=== PATIENT | female | born 1955 | race Caucasian/White ===

== ENCOUNTER → 2018-04-22 15:52 | Outpatient (CLI) | payer OTHER, SELFPAY ==
[2018-04-22 17:14] LABS: Add Manual Diff / Slide Review NO; Basophils Percent Auto 0.5 % (0-2); Eosinophils Percent Auto 2.9 % (2-4); Hemoglobin 14.1 g/dL (12.0-16.0); Lymphocytes Percent Auto 14.4 % (25-40); Mean Corpuscular HGB Conc 32.7 % (30-36); Mean Corpuscular Hemoglobin 27.1 PG (26-34); Mean Corpuscular Volume 82.8 fL (80-100); Monocytes Percent Auto 5.5 % (3-14); Neutrophils Absolute Auto 8400 /uL (3000-5900); Neutrophils Percent Auto 76.7 % (50-75); Platelet Count 254 X10^3/uL (150-400); Red Blood Cell Count 5.19 X10^6/uL (4.0-5.2); Red Cell Distribution Width 16.9 % (11.6-14.8)
[2018-04-22 17:21] LABS: Alanine Aminotransferase 25 IU/L (9-52); Albumin 4.4 g/dL (3.5-5.0); Albumin Globulin Ratio 1.4 (1.0-2.8); Alkaline Phosphatase 78 U/L (38-126); Aspartate Aminotransferase 20 IU/L (14-36); Bilirubin Total 0.7 mg/dL (0.2-1.3); Blood Urea Nitrogen 24 mg/dL (7-17); Calcium 9.8 mg/dL (8.4-10.2); Carbon Dioxide 29 mmol/L (22-32); Chloride 98 mmol/L (98-107); Cholesterol 158 mg/dL (140-199); Estimated Glomerular Filt Rate 56.2 mL/min (>60); Globulin 3.1 g/dL (1.7-4.1); Glucose 109 mg/dL (80-110); HDL Cholesterol 43 mg/dL (40-60); HEMOLYSIS < 15 (0-50); LDL Cholesterol Calculated 90 mg/dL (<100); Potassium 4.6 mmol/L (3.4-5.1); Sodium 141 mmol/L (137-145); Total Protein 7.5 g/dL (6.3-8.2); Triglycerides 124 mg/dL (35-150)
== END ==
PROVIDERS: PCP Family Medicine; Visit Provider Family Medicine
DX: I10 Essential (primary) hypertension (principal); M15.8 Other polyosteoarthritis
CPT/HCPCS: 36415; 80053; 80061; 84443; 85025

== ENCOUNTER → 2019-06-23 14:44 | Outpatient (CLI) | payer SELFPAY ==
[2019-06-23 15:20] LABS: Add Manual Diff / Slide Review NO; Basophils Absolute Auto 0 /uL (0-100); Basophils Percent Auto 0.5 % (0-2); Eosinophils Absolute Auto 400 /uL (0-450); Eosinophils Percent Auto 3.7 % (2-4); Hematocrit 42.6 % (36-46); Hemoglobin 13.8 g/dL (12.0-16.0); Lymphocytes Absolute Auto 2000 /uL (1100-4500); Lymphocytes Percent Auto 21.4 % (25-40); Mean Corpuscular HGB Conc 32.4 % (30-36); Mean Corpuscular Hemoglobin 26.4 PG (26-34); Mean Corpuscular Volume 81.4 fL (80-100); Monocytes Absolute Auto 500 /uL (0-900); Monocytes Percent Auto 5.4 % (3-14); Neutrophils Absolute Auto 6600 /uL (1500-7000); Platelet Count 244 X10^3/uL (150-400); Red Blood Cell Count 5.24 X10^6/uL (4.0-5.2); Red Cell Distribution Width 16.8 % (11.6-14.8); White Blood Cell Count 9.5 X10^3/uL (4.5-11.0)
[2019-06-23 15:41] LABS: Alanine Aminotransferase 26 IU/L (9-52); Albumin 4.4 g/dL (3.5-5.0); Albumin Globulin Ratio 1.3 (1.0-2.8); Alkaline Phosphatase 90 U/L (38-126); Aspartate Aminotransferase 22 IU/L (14-36); BUN Creatinine Ratio 26.3 (6-22); Bilirubin Total 0.8 mg/dL (0.2-1.3); Blood Urea Nitrogen 21 mg/dL (7-17); Calcium 9.6 mg/dL (8.4-10.2); Carbon Dioxide 33 mmol/L (22-32); Chloride 95 mmol/L (98-107); Cholesterol 132 mg/dL (140-199); Estimated Glomerular Filt Rate > 60.0 mL/min (>60); Globulin 3.3 g/dL (1.7-4.1); Glucose 100 mg/dL (80-110); HDL Cholesterol 47 mg/dL (40-60); HEMOLYSIS 25 (0-50); LDL Cholesterol Calculated 69 mg/dL (<100); Potassium 4.3 mmol/L (3.4-5.1); Sodium 140 mmol/L (137-145); Total Protein 7.7 g/dL (6.3-8.2); Triglycerides 82 mg/dL (35-150)
[2019-06-23 16:12] LABS: Thyroid Stimulating Hormone 3.87 uIU/mL (0.47-4.68)
== END ==
PROVIDERS: PCP Family Medicine; Visit Provider Family Medicine
DX: Z00.00 Encounter for general adult medical examination without abnormal findings (principal); I10 Essential (primary) hypertension; Z78.0 Asymptomatic menopausal state
CPT/HCPCS: 36415; 80053; 80061; 84443; 85025

== ENCOUNTER → 2019-07-11 15:29 | Outpatient (CLI) | payer SELFPAY ==
--- NOTE | 2019-07-11 15:30 | DI.RAD.S_ITS ---
PROCEDURE: XR ANKLE LT MIN 3V INDICATIONS: left ankle pain TECHNIQUE: 3 views of the ankle were acquired. COMPARISON: None. FINDINGS: Bones: No fractures or dislocations. Ankle mortise is normally aligned. No suspicious bony lesions. There is mild degenerative joint disease involving the tibiotalar joint, talonavicular joint and navicular cuboid joint. Calcaneal spurring. Soft tissues: No tibiotalar joint effusion. Achilles tendon appears normal. IMPRESSION: Mild degenerative joint disease and calcaneal spurring. Dictated by: Dariana Gastelum M.D. on 07/11/2019 at 18:12 Approved by: Dariana Gastelum M.D. on 07/11/2019 at 18:14
== END ==
PROVIDERS: Family Provider Family Medicine; PCP Family Medicine; Visit Provider Nurse Practitioner Family
DX: M25.572 Pain in left ankle and joints of left foot (principal); M19.072 Primary osteoarthritis, left ankle and foot; M77.32 Calcaneal spur, left foot
CPT/HCPCS: 73610

== ENCOUNTER 2020-03-27 16:32 | Inpatient (IN) | payer OTHER, MEDICAID, SELFPAY ==
[2020-03-27] VITALS (10 sets, daily range): BP systolic 194–232; BP diastolic 98–185; PULSE 72–100; RESP 18–34; TEMP 36.2–36.4; O2SAT 88–98; BMI 62.1
--- NOTE | 2020-03-27 17:19 | DI.RAD.S_ITS ---
PROCEDURE: XR CHEST 1V INDICATIONS: sob TECHNIQUE: One view of the chest was acquired. COMPARISON: [facility], , CHEST 2 VIEW, 09/13/2017, 21:39. FINDINGS: Surgical changes and devices: None. Lungs and pleura: mild pulmonary vascular congestion is seen. No focal infiltrate.No pleural effusions or pneumothorax. Mediastinum: Mediastinal contours appear normal. Heart size is Enlarged. Bones and chest wall: No suspicious bony lesions. Overlying soft tissues appear unremarkable. IMPRESSION: Cardiomegaly and mild congestion. No focal infiltrate, pleural effusion or pneumothorax. Dictated by: Ralph Avina M.D. on 03/27/2020 at 17:42 Approved by: Ralph Avina M.D. on 03/27/2020 at 17:42
[2020-03-27 17:33] LABS: Add Manual Diff / Slide Review NO; Basophils Absolute Auto 100 /uL (0-100); Basophils Percent Auto 0.7 % (0-2); Eosinophils Absolute Auto 300 /uL (0-450); Eosinophils Percent Auto 3.3 % (2-4); Hematocrit 42.3 % (36-46); Hemoglobin 13.5 g/dL (12.0-16.0); Lymphocytes Absolute Auto 1500 /uL (1100-4500); Lymphocytes Percent Auto 16.9 % (25-40); Mean Corpuscular HGB Conc 31.9 % (30-36); Mean Corpuscular Hemoglobin 25.2 PG (26-34); Mean Corpuscular Volume 79.1 fL (80-100); Monocytes Absolute Auto 600 /uL (0-900); Monocytes Percent Auto 6.7 % (3-14); Neutrophils Absolute Auto 6700 /uL (1500-7000); Neutrophils Percent Auto 72.4 % (50-75); Platelet Count 197 X10^3/uL (150-400); Red Blood Cell Count 5.35 X10^6/uL (4.0-5.2); Red Cell Distribution Width 19.5 % (11.6-14.8); White Blood Cell Count 9.2 X10^3/uL (4.5-11.0)
[2020-03-27 17:43] LABS: Creatine Kinase 32 U/L (30-135); Magnesium 1.8 mg/dL (1.6-2.3)
[2020-03-27 17:45] LABS: Alanine Aminotransferase 36 IU/L (<35); Albumin 3.9 g/dL (3.5-5.0); Albumin Globulin Ratio 1.2 (1.0-2.8); Alkaline Phosphatase 97 U/L (38-126); Aspartate Aminotransferase 31 IU/L (14-36); BUN Creatinine Ratio 23.1 (6-22); Bilirubin Total 0.7 mg/dL (0.2-1.3); Blood Urea Nitrogen 21 mg/dL (7-17); Calcium 9.1 mg/dL (8.4-10.2); Carbon Dioxide 36 mmol/L (22-32); Chloride 94 mmol/L (98-107); Estimated Glomerular Filt Rate > 60.0 mL/min (>60); Globulin 3.3 g/dL (1.7-4.1); Glucose 95 mg/dL (80-110); HEMOLYSIS < 15 (0-50); Potassium 4.1 mmol/L (3.4-5.1); Sodium 136 mmol/L (137-145); Total Protein 7.2 g/dL (6.3-8.2)
[2020-03-27 17:56] LABS: NT-proBNP (BNP-Adult 18+) 485 pg/mL (<125); Troponin I < 0.012 ng/mL (0.01-0.034)
[2020-03-27] MEDS: ALBUTEROL HFA 200 PUFF/18 GM INH (COVID POS/VENT PTS) INH (18:44)
[2020-03-27] MEDS: FUROSEMIDE 40 MG/4 ML VIAL IV (18:45)
--- NOTE | 2020-03-27 18:51 | ED_ITS ---
HPI - Extremity Problem <Francisca Thibodeaux, BUILDING TECH-BC - Last Filed: 03/27/20 20:31> General Chief complaint: Extremity Problem,Nontraumatic Stated complaint: SWELLING OF LEGS SOB Time Seen by Provider: 03/27/20 17:01 Source: patient Mode of arrival: Ambulatory Limitations: no limitations History of Present Illness HPI Narrative: The patient is a 64-year-old female nonsmoker with history of morbid obesity, asthma and pneumonia who presents with a chief complaint of swelling of her legs and progressive shortness of breath. She noticed that her legs have been swelling over the past few weeks, they use to improve at night, but they no longer are. She states that now she is short of breath when ambulating. She does have a history of asthma, states she has an occasional dry cough but no productive cough. She also has a history of pneumonia last year. She denies any chest pain nausea vomiting or diarrhea. She denies any fever. Her PCP is Marciano Morton. She denies any dysuria urgency or frequency. She denies any exposure to sick people. Related Data Home Medications Medication Instructions Recorded Confirmed ascorbic acid (vitamin C) 1,000 mg PO QDAY #0 tab 04/08/16 04/05/20 aspirin 81 mg PO QDAY #30 tab 04/08/16 04/05/20 melatonin 3 mg PO HS #0 tab 04/08/16 04/05/20 multivitamin [Multiple Vitamins] 1 tab PO QDAY #0 tab 04/08/16 04/05/20 naproxen 440 mg PO BID 03/27/20 04/05/20 Previous Rx's Medication Instructions Recorded albuterol sulfate 90 mcg/actuation 2 puff INHALATION Q4-6H PRN #8.5 05/04/18 aerosol inhaler gram pramipexole 0.5 mg tablet See Rx Instructions .ROUTE 07/03/19 .COMPLEX #120 tab trazodone 100 mg tablet See Rx Instructions .ROUTE 01/12/20 .COMPLEX #90 tablet amlodipine [Norvasc] 5 mg PO DAILY #30 tab 03/30/20 furosemide 40 mg PO DAILY #30 tab 03/30/20 potassium chloride [Klor-Con M20] 20 meq PO DAILY #30 tab 03/30/20 spironolactone 25 mg PO DAILY #30 tab 03/30/20 losartan 25 mg tablet 50 mg PO BID #120 tab 04/05/20 Allergies Allergy/AdvReac Type Severity Reaction Status Date / Time codeine [CODEINE] Allergy Intermediate GASTRIC Verified 04/05/20 14:07 UPSET Sulfa (Sulfonamide Allergy Intermediate RASH/HIVES Verified 04/05/20 14:07 Antibiotics) [SULFA (SULFONAMIDE ANTIBIOTICS)] Review of Systems <ANIYA [facility]ultz[facility] - Last Filed: 03/27/20 20:31> Review of Systems Narrative: GENERAL: Denies chills, fatigue, malaise, fever, sweats. HEENT: Denies sinus pain, ear pain, sore throat, difficulty swallowing, dizziness. RESPIRATORY: See HPI CARDIOVASCULAR: See HPI GASTROINTESTINAL: Denies nausea, vomiting, abdominal pain, diarrhea, constipation, melena. : Denies dysuria, frequency, incontinence, hematuria, urinary retention. MUSCULOSKELETAL: See HPI SKIN: Denies rash, skin lesions, or other NEUROLOGIC: Denies weakness, headache, numbness, change in speech, confusion, seizures, incoordination. PSYCHIATRIC: No concerning psychosocial issues. 12 point review of systems is negative except for those stated above Patient History <CHRISTOPHER Shultz - Last Filed: 03/27/20 20:31> Medical History (Updated 04/05/20 @ 17:53 by Marciano Morton MD) Anemia (Resolved 1993) Arthritis (Chronic 1999) Asthma (Chronic) Depression (Chronic) Foot pain (Chronic 2010) Fractures (Resolved 2010) Gout (Chronic 1998) Hayfever (Chronic) Heart murmur (Chronic 1999) Knee pain (Chronic 2009) Morbid obesity (Chronic) Obesity hypoventilation syndrome (Chronic) Ovarian cyst (Resolved 1975) RLS (restless legs syndrome) (Chronic 2012) Sleep apnea (Chronic 2011) Urinary incontinence (Chronic 2013) Surgical History Anesthesia complication (Resolved) LAP-BAND surgery status (Resolved 2012) Status post arthroscopy (Resolved 2000) Status post cholecystectomy (Resolved 1998) Status post hysterectomy (Resolved 1995) Status post right foot surgery (Resolved 2009) Family History Father Diabetes mellitus Heart disease Hypertension High cholesterol Renal failure Grandfather Heart disease Heart attack Grandmother Cancer Breast cancer Mother Diabetes mellitus Heart disease Heart failure Grandfather Heart disease Grandmother Cancer Breast cancer Colon cancer Sister Age: 57 Fibromyalgia Bone cancer Social History household members: none Smoking Status: Never smoker alcohol intake: never Smoking Status: Never smoker Substance Use Type: does not use Exam <STEPHEN Shultz - Last Filed: 03/27/20 20:31> Narrative Exam Narrative: GENERAL: Morbidly obese female in no acute distress HEAD: Atraumatic. Normocephalic. No temporal or scalp tenderness. EYES: Pupils equal round and reactive. Extraocular motions intact. No scleral icterus. No injection or drainage. ENT: Nose without bleeding, purulent drainage or septal hematoma. Throat without erythema, tonsillar hypertrophy or exudate. Uvula midline. Airway patent. NECK: Trachea midline. No JVD or lymphadenopathy. Supple, nontender, no meningeal signs. CARDIOVASCULAR: Regular rate and rhythm RESPIRATORY: Decreased to auscultation. Breath sounds equal bilaterally. Occasional dry sounding cough. Slight crackles at bases noted. 1-2 word dyspnea noted initially. Pursed lipped breathing noted initially. GASTROINTESTINAL: Abdomen obese, non-tender, nondistended. No hepato- splenomegaly, or palpable masses. No guarding. EXTREMITIES: Bilateral 3+ edema feet to the knees. Positive pedal pulses. BACK: Nontender without deformity or crepitance. No flank tenderness. NEURO: AOx3. SKIN: No rash or erythema on visible skin Initial Vital Signs Initial Vital Signs: Vital Signs Temperature 97.2 F L 03/27/20 16:41 Pulse Rate 81 03/27/20 16:41 Respiratory Rate 34 H 03/27/20 16:41 Blood Pressure 222/125 H 03/27/20 16:41 Pulse Oximetry 88 L 03/27/20 16:41 <Henry Hines MD - Last Filed: 04/10/20 07:19> Initial Vital Signs Initial Vital Signs: Vital Signs Temperature 97.2 F L 03/27/20 16:41 Pulse Rate 81 03/27/20 16:41 Respiratory Rate 34 H 03/27/20 16:41 Blood Pressure 222/125 H 03/27/20 16:41 Pulse Oximetry 88 L 03/27/20 16:41 Scores <STEPHEN Shultz - Last Filed: 03/27/20 20:31> GCS Allison coma scale eye opening: Spontaneous [place] coma scale verbal response: Orientated [place] coma scale motor response: Obey commands Allison coma scale total score: 15 Course <Francisca VillafuerteANIYA stone-BC - Last Filed: 03/27/20 20:31> Orders Ordered: Discontinued Medications Acetaminophen (Tylenol) 650 mg PO Q6HR PRN PRN Reason: Fever/Mild Pain (1-3) Last Admin: 03/29/20 03:58 Dose: 650 mg Documented by: ROSINA Joe Hydrox/Mg Hydrox/Simethicone (Maalox Plus) 30 ml PO Q6HR PRN PRN Reason: Dyspepsia Albuterol (Ventolin Hfa (Vent/Covid R/O)) 2 puff INH NOW ONE Stop: 03/27/20 16:54 Last Admin: 03/27/20 18:44 Dose: 2 puff Documented by: HALLEE Amlodipine Besylate (Norvasc) 5 mg PO DAILY [facility] Last Admin: 03/31/20 08:24 Dose: 5 mg Documented by: Admin: 03/30/20 08:18 Dose: 5 mg Documented by: Admin: 03/29/20 09:13 Dose: 5 mg Documented by: Admin: 03/28/20 18:18 Dose: 5 mg Documented by: YOUSIF Candesartan Cilexetil (Atacand) 32 mg PO DAILY [facility] Last Admin: 03/28/20 08:56 Dose: 32 mg Documented by: SIDDHARTHA Enoxaparin Sodium (Lovenox) 40 mg SUBCUT DAILY [facility] Last Admin: 03/28/20 08:56 Dose: 40 mg Documented by: SIDDHARTHA Enoxaparin Sodium (Lovenox) 40 mg SUBCUT BID [facility] Last Admin: 03/31/20 08:24 Dose: 40 mg Documented by: Admin: 03/30/20 20:25 Dose: 40 mg Documented by: Admin: 03/30/20 08:17 Dose: 40 mg Documented by: Admin: 03/29/20 21:48 Dose: 40 mg Documented by: Admin: 03/29/20 09:14 Dose: 40 mg Documented by: Admin: 03/28/20 21:42 Dose: 40 mg Documented by: JSELPH Enoxaparin Sodium (Lovenox) 40 mg SUBCUT DAILY [facility] Furosemide (Lasix) 40 mg IV NOW ONE Stop: 03/27/20 18:17 Last Admin: 03/27/20 18:45 Dose: 40 mg Documented by: ABENA Furosemide (Lasix) 40 mg IV TID [facility] Last Admin: 03/29/20 12:17 Dose: Not Given Documented by: Admin: 03/28/20 21:41 Dose: 40 mg Documented by: Admin: 03/28/20 14:11 Dose: 40 mg Documented by: Admin: 03/28/20 08:57 Dose: 40 mg Documented by: Admin: 03/27/20 21:56 Dose: 40 mg Documented by: YOUSIF Furosemide (Lasix) 40 mg PO DAILY [facility] Last Admin: 03/31/20 08:24 Dose: 40 mg Documented by: Admin: 03/30/20 08:18 Dose: 40 mg Documented by: Admin: 03/29/20 09:14 Dose: 40 mg Documented by: TASNEEM Losartan Potassium (Cozaar) 50 mg PO BID [facility] Last Admin: 03/31/20 08:24 Dose: 50 mg Documented by: Admin: 03/30/20 20:26 Dose: 50 mg Documented by: Admin: 03/30/20 08:18 Dose: 50 mg Documented by: Admin: 03/29/20 21:48 Dose: 50 mg Documented by: Admin: 03/29/20 09:13 Dose: 50 mg Documented by: Admin: 03/28/20 21:41 Dose: 50 mg Documented by: Admin: 03/28/20 14:11 Dose: 50 mg Documented by: SIDDHARTHA Magnesium Hydroxide (Milk Of Magnesia) 30 ml PO DAILY PRN PRN Reason: Constipation Magnesium Oxide (Mag Ox) 400 mg PO NOW ONE Stop: 03/27/20 19:20 Last Admin: 03/28/20 00:06 Dose: Not Given Documented by: ROSINA Melatonin (Melatonin) 3 mg PO BEDTIME [facility] Last Admin: 03/30/20 20:26 Dose: 3 mg Documented by: Admin: 03/29/20 21:49 Dose: 3 mg Documented by: Admin: 03/28/20 21:41 Dose: 3 mg Documented by: Admin: 03/27/20 21:57 Dose: 3 mg Documented by: YOUSIF Naloxone HCl (Narcan) 0.2 mg IV Q2MIN PRN PRN Reason: Opiate Reversal Stored In Pharmacy 1 each PO PRN PRN PRN Reason: PROTOCOL Nystatin (Nystop) 1 applic TOP TID [facility] Last Admin: 03/31/20 08:24 Dose: 1 applic Documented by: Admin: 03/30/20 20:28 Dose: 1 applic Documented by: Admin: 03/30/20 14:40 Dose: 1 applic Documented by: Admin: 03/30/20 11:45 Dose: 1 applic Documented by: Admin: 03/29/20 21:50 Dose: 1 applic Documented by: Admin: 03/29/20 15:14 Dose: Not Given Documented by: Admin: 03/29/20 09:14 Dose: 1 applic Documented by: Admin: 03/28/20 21:45 Dose: 1 applic Documented by: Admin: 03/28/20 14:21 Dose: 1 applic Documented by: Admin: 03/28/20 08:57 Dose: 1 applic Documented by: SIDDHARTHA Ondansetron HCl (Zofran) 4 mg IV Q8HR PRN PRN Reason: Nausea And Vomiting Potassium Chloride (Klor-Con M20) 20 meq PO TIDWM [facility] Last Admin: 03/30/20 08:18 Dose: 20 meq Documented by: Admin: 03/29/20 17:13 Dose: 20 meq Documented by: Admin: 03/29/20 13:27 Dose: 20 meq Documented by: Admin: 03/29/20 09:13 Dose: 20 meq Documented by: Admin: 03/28/20 17:39 Dose: 20 meq Documented by: Admin: 03/28/20 12:43 Dose: 20 meq Documented by: Admin: 03/28/20 08:57 Dose: 20 meq Documented by: SIDDHARTHA Potassium Chloride (Klor-Con M20) 20 meq PO DAILY [facility] Last Admin: 03/31/20 08:24 Dose: 20 meq Documented by: FUENTES Pramipexole Dihydrochloride (Mirapex) 1 mg PO BEDTIME PRN PRN Reason: sleep Pramipexole Dihydrochloride (Mirapex) 1 mg PO BEDTIME PRN PRN Reason: Sleep Last Admin: 03/30/20 20:26 Dose: 1 mg Documented by: Admin: 03/29/20 21:50 Dose: 1 mg Documented by: Admin: 03/28/20 21:47 Dose: 1 mg Documented by: YOUSIF Sodium Chloride (Normal Saline 0.9% Flush) 10 ml IV PRN PRN PRN Reason: Flush Sodium Chloride (Normal Saline 0.9% Flush) 10 ml IV BID [facility] Admin: 03/31/20 08:25 Dose: 10 ml Documented by: Admin: 03/30/20 20:28 Dose: 10 ml Documented by: Admin: 03/30/20 08:21 Dose: 10 ml Documented by: JEFF Spironolactone (Aldactone) 25 mg PO DAILY [facility] Admin: 03/31/20 08:24 Dose: 25 mg Documented by: Admin: 03/30/20 08:14 Dose: 25 mg Documented by: Admin: 03/29/20 09:13 Dose: 25 mg Documented by: Admin: 03/28/20 08:56 Dose: 25 mg Documented by: SIDDHARTHA Trazodone HCl (Desyrel) 100 mg PO BEDTIME PRN PRN Reason: see Last Admin: 03/29/20 21:49 Dose: 100 mg Documented by: Admin: 03/28/20 21:45 Dose: 100 mg Documented by: Admin: 03/27/20 21:57 Dose: 100 mg Documented by: YOUSIF Vital Signs Vital signs: Vital Signs - 8 hr 03/27/20 16:41 03/27/20 17:00 03/27/20 17:30 Temperature 97.2 F L Pulse Rate 81 74 77 Respiratory Rate 34 H 33 H 18 Blood Pressure 222/125 H Pulse Oximetry 88 L 94 95 03/27/20 18:00 03/27/20 18:30 03/27/20 19:00 Temperature Pulse Rate 77 74 94 H Respiratory Rate 28 H 29 H 34 H Blood Pressure 232/110 H 201/98 H 220/99 H Pulse Oximetry 97 97 98 03/27/20 19:30 Temperature Pulse Rate 100 H Respiratory Rate 34 H Blood Pressure 228/185 H Pulse Oximetry 98 <Henry Hines MD - Last Filed: 04/10/20 07:19> Orders Ordered: Discontinued Medications Acetaminophen (Tylenol) 650 mg PO Q6HR PRN PRN Reason: Fever/Mild Pain (1-3) Last Admin: 03/29/20 03:58 Dose: 650 mg Documented by: ROSINA Joe Hydrox/Mg Hydrox/Simethicone (Maalox Plus) 30 ml PO Q6HR PRN PRN Reason: Dyspepsia Albuterol (Ventolin Hfa (Vent/Covid R/O)) 2 puff INH NOW ONE Stop: 03/27/20 16:54 Last Admin: 03/27/20 18:44 Dose: 2 puff Documented by: HALLEE Amlodipine Besylate (Norvasc) 5 mg PO DAILY [facility] Last Admin: 03/31/20 08:24 Dose: 5 mg Documented by: Admin: 03/30/20 08:18 Dose: 5 mg Documented by: Admin: 03/29/20 09:13 Dose: 5 mg Documented by: Admin: 03/28/20 18:18 Dose: 5 mg Documented by: YOUSIF Candesartan Cilexetil (Atacand) 32 mg PO DAILY [facility] Last Admin: 03/28/20 08:56 Dose: 32 mg Documented by: SIDDHARTHA Enoxaparin Sodium (Lovenox) 40 mg SUBCUT DAILY [facility] Last Admin: 03/28/20 08:56 Dose: 40 mg Documented by: SIDDHARTHA Enoxaparin Sodium (Lovenox) 40 mg SUBCUT BID [facility] Last Admin: 03/31/20 08:24 Dose: 40 mg Documented by: Admin: 03/30/20 20:25 Dose: 40 mg Documented by: Admin: 03/30/20 08:17 Dose: 40 mg Documented by: Admin: 03/29/20 21:48 Dose: 40 mg Documented by: Admin: 03/29/20 09:14 Dose: 40 mg Documented by: Admin: 03/28/20 21:42 Dose: 40 mg Documented by: YOUSIF Enoxaparin Sodium (Lovenox) 40 mg SUBCUT DAILY [facility] Furosemide (Lasix) 40 mg IV NOW ONE Stop: 03/27/20 18:17 Last Admin: 03/27/20 18:45 Dose: 40 mg Documented by: ABENA Furosemide (Lasix) 40 mg IV TID [facility] Last Admin: 03/29/20 12:17 Dose: Not Given Documented by: Admin: 03/28/20 21:41 Dose: 40 mg Documented by: Admin: 03/28/20 14:11 Dose: 40 mg Documented by: Admin: 03/28/20 08:57 Dose: 40 mg Documented by: Admin: 03/27/20 21:56 Dose: 40 mg Documented by: YOUSIF Furosemide (Lasix) 40 mg PO DAILY [facility] Last Admin: 03/31/20 08:24 Dose: 40 mg Documented by: Admin: 03/30/20 08:18 Dose: 40 mg Documented by: Admin: 03/29/20 09:14 Dose: 40 mg Documented by: TASNEEM Losartan Potassium (Cozaar) 50 mg PO BID [facility] Last Admin: 03/31/20 08:24 Dose: 50 mg Documented by: Admin: 03/30/20 20:26 Dose: 50 mg Documented by: Admin: 03/30/20 08:18 Dose: 50 mg Documented by: Admin: 03/29/20 21:48 Dose: 50 mg Documented by: Admin: 03/29/20 09:13 Dose: 50 mg Documented by: Admin: 03/28/20 21:41 Dose: 50 mg Documented by: Admin: 03/28/20 14:11 Dose: 50 mg Documented by: SIDDHARTHA Magnesium Hydroxide (Milk Of Magnesia) 30 ml PO DAILY PRN PRN Reason: Constipation Magnesium Oxide (Mag Ox) 400 mg PO NOW ONE Stop: 03/27/20 19:20 Last Admin: 03/28/20 00:06 Dose: Not Given Documented by: ROSINA Melatonin (Melatonin) 3 mg PO BEDTIME [facility] Last Admin: 03/30/20 20:26 Dose: 3 mg Documented by: Admin: 03/29/20 21:49 Dose: 3 mg Documented by: Admin: 03/28/20 21:41 Dose: 3 mg Documented by: Admin: 03/27/20 21:57 Dose: 3 mg Documented by: YOUSIF Naloxone HCl (Narcan) 0.2 mg IV Q2MIN PRN PRN Reason: Opiate Reversal Stored In Pharmacy 1 each PO PRN PRN PRN Reason: PROTOCOL Nystatin (Nystop) 1 applic TOP TID [facility] Admin: 03/31/20 08:24 Dose: 1 applic Documented by: Admin: 03/30/20 20:28 Dose: 1 applic Documented by: Admin: 03/30/20 14:40 Dose: 1 applic Documented by: Admin: 03/30/20 11:45 Dose: 1 applic Documented by: Admin: 03/29/20 21:50 Dose: 1 applic Documented by: Admin: 03/29/20 15:14 Dose: Not Given Documented by: Admin: 03/29/20 09:14 Dose: 1 applic Documented by: Admin: 03/28/20 21:45 Dose: 1 applic Documented by: Admin: 03/28/20 14:21 Dose: 1 applic Documented by: Admin: 03/28/20 08:57 Dose: 1 applic Documented by: SIDDHARTHA Ondansetron HCl (Zofran) 4 mg IV Q8HR PRN PRN Reason: Nausea And Vomiting Potassium Chloride (Klor-Con M20) 20 meq PO TIDWM [facility] Last Admin: 03/30/20 08:18 Dose: 20 meq Documented by: Admin: 03/29/20 17:13 Dose: 20 meq Documented by: Admin: 03/29/20 13:27 Dose: 20 meq Documented by: Admin: 03/29/20 09:13 Dose: 20 meq Documented by: Admin: 03/28/20 17:39 Dose: 20 meq Documented by: Admin: 03/28/20 12:43 Dose: 20 meq Documented by: Admin: 03/28/20 08:57 Dose: 20 meq Documented by: JNEWTON Potassium Chloride (Klor-Con M20) 20 meq PO DAILY [facility] Last Admin: 03/31/20 08:24 Dose: 20 meq Documented by: FUENTES Pramipexole Dihydrochloride (Mirapex) 1 mg PO BEDTIME PRN PRN Reason: sleep Pramipexole Dihydrochloride (Mirapex) 1 mg PO BEDTIME PRN PRN Reason: Sleep Last Admin: 03/30/20 20:26 Dose: 1 mg Documented by: Admin: 03/29/20 21:50 Dose: 1 mg Documented by: Admin: 03/28/20 21:47 Dose: 1 mg Documented by: YOUSIF Sodium Chloride (Normal Saline 0.9% Flush) 10 ml IV PRN PRN PRN Reason: Flush Sodium Chloride (Normal Saline 0.9% Flush) 10 ml IV BID [facility] Admin: 03/31/20 08:25 Dose: 10 ml Documented by: Admin: 03/30/20 20:28 Dose: 10 ml Documented by: Admin: 03/30/20 08:21 Dose: 10 ml Documented by: JEFF Spironolactone (Aldactone) 25 mg PO DAILY [facility] Admin: 03/31/20 08:24 Dose: 25 mg Documented by: Admin: 03/30/20 08:14 Dose: 25 mg Documented by: Admin: 03/29/20 09:13 Dose: 25 mg Documented by: Admin: 03/28/20 08:56 Dose: 25 mg Documented by: SIDDHARTHA Trazodone HCl (Desyrel) 100 mg PO BEDTIME PRN PRN Reason: seep Last Admin: 03/29/20 21:49 Dose: 100 mg Documented by: Admin: 03/28/20 21:45 Dose: 100 mg Documented by: Admin: 03/27/20 21:57 Dose: 100 mg Documented by: YOUSIF Vital Signs Vital signs: Vital Signs - 8 hr 03/27/20 16:41 03/27/20 17:00 03/27/20 17:30 Temperature 97.2 F L Pulse Rate 81 74 77 Respiratory Rate 34 H 33 H 18 Blood Pressure 222/125 H Pulse Oximetry 88 L 94 95 03/27/20 18:00 03/27/20 18:30 03/27/20 19:00 Temperature Pulse Rate 77 74 94 H Respiratory Rate 28 H 29 H 34 H Blood Pressure 232/110 H 201/98 H 220/99 H Pulse Oximetry 97 97 98 03/27/20 19:30 Temperature Pulse Rate 100 H Respiratory Rate 34 H Blood Pressure 228/185 H Pulse Oximetry 98 MDM - Extremity (Nontraumatic) <Francisca Thibodeaux, BUILDING TECH-BC - Last Filed: 03/27/20 20:31> Lab Data Result diagrams: 03/28/20 04:44 03/30/20 04:50 Labs: Lab Results 03/27/20 03/27/20 03/27/20 Range/Units 17:14 17:14 17:14 WBC 9.2 (4.5-11.0) X10^3/uL RBC 5.35 H (4.0-5.2) X10^6/uL Hgb 13.5 (12.0-16.0) g/dL Hct 42.3 (36-46) % MCV 79.1 L (80-100) fL MCH 25.2 L (26-34) PG MCHC 31.9 (30-36) % RDW 19.5 H (11.6-14.8) % Plt Count 197 (150-400) X10^3/uL Neut % (Auto) 72.4 (50-75) % Lymph % (Auto) 16.9 L (25-40) % [place] % (Auto) 6.7 (3-14) % Eos % (Auto) 3.3 (2-4) % Baso % (Auto) 0.7 (0-2) % Neut # (Auto) 6700 (5374-1990) /uL Lymph # (Auto) 1500 (4340-3307) /uL Valencia # (Auto) 600 (0-900) /uL Eos # (Auto) 300 (0-450) /uL Baso # (Auto) 100 (0-100) /uL Sodium 136 L (137-145) mmol/L Potassium 4.1 (3.4-5.1) mmol/L Chloride 94 L (98-107) mmol/L Carbon Dioxide 36 H (22-32) mmol/L BUN 21 H (7-17) mg/dL Creatinine 0.91 (0.52-1.04) mg/dL Estimated GFR > 60.0 (>60) mL/min BUN/Creatinine Ratio 23.1 H (6-22) Glucose 95 (80-110) mg/dL Lactate 1.0 (0.7-2.1) mmol/L Calcium 9.1 (8.4-10.2) mg/dL Magnesium (1.6-2.3) mg/dL Total Bilirubin 0.7 (0.2-1.3) mg/dL AST 31 (14-36) IU/L ALT 36 H (<35) IU/L Alkaline Phosphatase 97 (38-126) U/L Total Creatine Kinase (30-135) U/L CK-MB (CK-2) CK-MB (CK-2) Rel Index Troponin I (0.01-0.034) ng/mL NT-Pro-B Natriuret Pep (<125) pg/mL Total Protein 7.2 (6.3-8.2) g/dL Albumin 3.9 (3.5-5.0) g/dL Globulin 3.3 (1.7-4.1) g/dL Albumin/Globulin Ratio 1.2 (1.0-2.8) COVID-19 PCR (Negative) 03/27/20 03/27/20 Range/Units 17:14 17:42 WBC (4.5-11.0) X10^3/uL RBC (4.0-5.2) X10^6/uL Hgb (12.0-16.0) g/dL Hct (36-46) % MCV (80-100) fL MCH (26-34) PG MCHC (30-36) % RDW (11.6-14.8) % Plt Count (150-400) X10^3/uL Neut % (Auto) (50-75) % Lymph % (Auto) (25-40) % Valencia % (Auto) (3-14) % Eos % (Auto) (2-4) % Baso % (Auto) (0-2) % Neut # (Auto) (9291-0479) /uL Lymph # (Auto) (3766-3521) /uL Valencia # (Auto) (0-900) /uL Eos # (Auto) (0-450) /uL Baso # (Auto) (0-100) /uL Sodium (137-145) mmol/L Potassium (3.4-5.1) mmol/L Chloride (98-107) mmol/L Carbon Dioxide (22-32) mmol/L BUN (7-17) mg/dL Creatinine (0.52-1.04) mg/dL Estimated GFR (>60) mL/min BUN/Creatinine Ratio (6-22) Glucose (80-110) mg/dL Lactate (0.7-2.1) mmol/L Calcium (8.4-10.2) mg/dL Magnesium 1.8 (1.6-2.3) mg/dL Total Bilirubin (0.2-1.3) mg/dL AST (14-36) IU/L ALT (<35) IU/L Alkaline Phosphatase (38-126) U/L Total Creatine Kinase 32 (30-135) U/L CK-MB (CK-2) TNP CK-MB (CK-2) Rel Index TNP Troponin I < 0.012 (0.01-0.034) ng/mL NT-Pro-B Natriuret Pep 485 H (<125) pg/mL Total Protein (6.3-8.2) g/dL Albumin (3.5-5.0) g/dL Globulin (1.7-4.1) g/dL Albumin/Globulin Ratio (1.0-2.8) COVID-19 PCR Negative (Negative) Imaging Data Chest x-ray: Radiologist's Impression: [address] [place] [id number] XRay Report Signed Patient: Shyanne Zapata R#: [id number] : 6Acct:[id number] Age/Sex: 64 / FDate of Service: 03/27/20 Loc: ED Accession Number: [id number] Procedure: XR chest 1V Ordering Provider: Francisca Thibodeaux PROCEDURE: XR CHEST 1V INDICATIONS: sob TECHNIQUE: One view of the chest was acquired. COMPARISON: [facility], CHEST 2 VIEW, 09/13/2017, 21:39. FINDINGS: Surgical changes and devices: None. Lungs and pleura: mild pulmonary vascular congestion is seen. No focal infiltrate.No pleural effusions or pneumothorax. Mediastinum: Mediastinal contours appear normal. Heart size is Enlarged. Bones and chest wall: No suspicious bony lesions. Overlying soft tissues appear unremarkable. IMPRESSION: Cardiomegaly and mild congestion. No focal infiltrate, pleural effusion or pneumothorax. Dictated by: Ralph Avina M.D. on 03/27/2020 at 17:42 Approved by: Ralph Avina M.D. on 03/27/2020 at 17:42 ECG Data Attestation EKG: I personally reviewed and interpreted this ECG as follows: Interpretation: Sinus rhythm. Ventricular rate 81. P.r. interval 173. QRS 91. viewed by Dr Hines MDM Narrative Medical decision making narrative: The patient is a 64-year-old female who presents with a chief complaint of bilateral pedal edema that is getting worse as well as progressive shortness of breath. Initially she has 87-88% on room air upon ambulation into the department. She has pursed lip breathing, has 1-2 word dyspnea until she is placed on oxygen. Then her oxygen level recovers. Her troponin is negative. Her EKG has no acute findings. The patient is clinically fluid overloaded, with 3+ edema in crackles in her bases. Her x-ray shows pulmonary congestion as well as cardiomegaly. The patient appears to be very fluid overloaded, and believe that she needs to be admitted for diuresis an d further monitoring as well as echocardiogram. She also needs to be admitted regarding her increased oxygen requirements. She was given 40 mg IV Lasix in the emergency department, felt as though that helped her breathing. Blood pressure did decrease after Lasix dosing. I spoke with Dr. Rausch who kindly admitted the patient to inpatient status. Patient is in accordance, would like to be admitted at this point as she states ?I cannot live like this. <Henry Hines MD - Last Filed: 04/10/20 07:19> Lab Data Labs: Lab Results 03/27/20 03/27/20 03/27/20 Range/Units 17:14 17:14 17:14 WBC 9.2 (4.5-11.0) X10^3/uL RBC 5.35 H (4.0-5.2) X10^6/uL Hgb 13.5 (12.0-16.0) g/dL Hct 42.3 (36-46) % MCV 79.1 L (80-100) fL MCH 25.2 L (26-34) PG MCHC 31.9 (30-36) % RDW 19.5 H (11.6-14.8) % Plt Count 197 (150-400) X10^3/uL Neut % (Auto) 72.4 (50-75) % Lymph % (Auto) 16.9 L (25-40) % Valencia % (Auto) 6.7 (3-14) % Eos % (Auto) 3.3 (2-4) % Baso % (Auto) 0.7 (0-2) % Neut # (Auto) 6700 (5020-9720) /uL Lymph # (Auto) 1500 (1750-0274) /uL Valencia # (Auto) 600 (0-900) /uL Eos # (Auto) 300 (0-450) /uL Baso # (Auto) 100 (0-100) /uL Sodium 136 L (137-145) mmol/L Potassium 4.1 (3.4-5.1) mmol/L Chloride 94 L (98-107) mmol/L Carbon Dioxide 36 H (22-32) mmol/L BUN 21 H (7-17) mg/dL Creatinine 0.91 (0.52-1.04) mg/dL Estimated GFR > 60.0 (>60) mL/min BUN/Creatinine Ratio 23.1 H (6-22) Glucose 95 (80-110) mg/dL Lactate 1.0 (0.7-2.1) mmol/L Calcium 9.1 (8.4-10.2) mg/dL Magnesium (1.6-2.3) mg/dL Total Bilirubin 0.7 (0.2-1.3) mg/dL AST 31 (14-36) IU/L ALT 36 H (<35) IU/L Alkaline Phosphatase 97 (38-126) U/L Total Creatine Kinase (30-135) U/L CK-MB (CK-2) CK-MB (CK-2) Rel Index Troponin I (0.01-0.034) ng/mL NT-Pro-B Natriuret Pep (<125) pg/mL Total Protein 7.2 (6.3-8.2) g/dL Albumin 3.9 (3.5-5.0) g/dL Globulin 3.3 (1.7-4.1) g/dL Albumin/Globulin Ratio 1.2 (1.0-2.8) COVID-19 PCR (Negative) 03/27/20 03/27/20 Range/Units 17:14 17:42 WBC (4.5-11.0) X10^3/uL RBC (4.0-5.2) X10^6/uL Hgb (12.0-16.0) g/dL Hct (36-46) % MCV (80-100) fL MCH (26-34) PG MCHC (30-36) % RDW (11.6-14.8) % Plt Count (150-400) X10^3/uL Neut % (Auto) (50-75) % Lymph % (Auto) (25-40) % Valencia % (Auto) (3-14) % Eos % (Auto) (2-4) % Baso % (Auto) (0-2) % Neut # (Auto) (7534-0735) /uL Lymph # (Auto) (1191-9248) /uL Valencia # (Auto) (0-900) /uL Eos # (Auto) (0-450) /uL Baso # (Auto) (0-100) /uL Sodium (137-145) mmol/L Potassium (3.4-5.1) mmol/L Chloride (98-107) mmol/L Carbon Dioxide (22-32) mmol/L BUN (7-17) mg/dL Creatinine (0.52-1.04) mg/dL Estimated GFR (>60) mL/min BUN/Creatinine Ratio (6-22) Glucose (80-110) mg/dL Lactate (0.7-2.1) mmol/L Calcium (8.4-10.2) mg/dL Magnesium 1.8 (1.6-2.3) mg/dL Total Bilirubin (0.2-1.3) mg/dL AST (14-36) IU/L ALT (<35) IU/L Alkaline Phosphatase (38-126) U/L Total Creatine Kinase 32 (30-135) U/L CK-MB (CK-2) TNP CK-MB (CK-2) Rel Index TNP Troponin I < 0.012 (0.01-0.034) ng/mL NT-Pro-B Natriuret Pep 485 H (<125) pg/mL Total Protein (6.3-8.2) g/dL Albumin (3.5-5.0) g/dL Globulin (1.7-4.1) g/dL Albumin/Globulin Ratio (1.0-2.8) COVID-19 PCR Negative (Negative) Discharge Plan Departure Patient Disposition: Admitted As Inpatient Clinical Impression: Breath shortness, Elevated brain natriuretic peptide (BNP) level Edema Qualifiers: Edema type: unspecified Qualified Code(s): R60.9 - Edema, unspecified Discharge Date/Time: 03/27/20 20:30 Instructions: DI for Heart Failure, Spironolactone, Furosemide, Amlodipine Referrals: Marciano Morton MD [Primary Care Provider] - 1 Week (Patient to call on WednesdayApril 01 for appointment in approximately 1 week) Admit Date/Time: 03/27/20 19:32 Admit Provider: Shahriar Rausch <Henry Hines MD - Last Filed: 04/10/20 07:19> Cosign ED Attending Cosignature Attestation: I was immediately available in the department for consultation. This documentation has been reviewed and I agree with assessment and plan. Supervised by Henry Hines MD
[2020-03-27 20:28] LABS: COVID19 -Nasal RAPID Negative (Negative)
[2020-03-27] MEDS: FUROSEMIDE 20 MG/2 ML VIAL 40 MG IV (21:56)
[2020-03-27] MEDS: TRAZODONE 100 MG TABLET PO (21:57)
[2020-03-27] MEDS: MELATONIN 3 MG TABLET PO (21:57)
--- NOTE | 2020-03-27 22:03 | PC.NURSE ---
5 - Pt arrive to room 229. Oriented to room and routine. Able to transfer self to [facility]. Denies Hx of falls. Home meds with patient and reviewed. Sent to pharmacy. Educated to safety and call light use. Call light in reach. Snack provided.
[2020-03-28] VITALS (12 sets, daily range): BP systolic 131–199; BP diastolic 69–96; PULSE 70–84; RESP 18–22; TEMP 36.1–36.8; O2SAT 90–95
--- NOTE | 2020-03-28 02:02 | RT ---
03/27/2255 Patient seen for evaluate and treat (before as well in ER at 1924). VSS P 72/ RR 20 without obvious effort with HOB up/ BS diminished with fine rales in posterior bases. CXR results: mild pulmonary congestion with cardiomegaly. Patient notes non-contributory respiratory history but states she was previously diagnosed with LUKE but insurance wouldn't pay for machine. She notes that she would not like our available CPAP masks at this time. Patient also notes that she routinely takes hydrochlorothiazide diuretic but has been having worsening BLE edema lately. she is receiving Lasix at present. Plan: Will follow patient as she continues diuresing, continuous oximetry in use for oxygen needs and to keep track of her nocturnal oxygen needs. and 2LPM oxygen. Suggest followup after discharge for full sleep study and possible prescription for CPAP/BiPAP. Flores Hinojosa, COPY TECHNICIAN
[2020-03-28 05:08] LABS: Add Manual Diff / Slide Review NO; Basophils Absolute Auto 100 /uL (0-100); Basophils Percent Auto 0.8 % (0-2); Eosinophils Absolute Auto 400 /uL (0-450); Eosinophils Percent Auto 5.1 % (2-4); Hemoglobin 13.2 g/dL (12.0-16.0); Lymphocytes Absolute Auto 1200 /uL (1100-4500); Lymphocytes Percent Auto 15.1 % (25-40); Mean Corpuscular HGB Conc 32.2 % (30-36); Mean Corpuscular Hemoglobin 25.6 PG (26-34); Mean Corpuscular Volume 79.4 fL (80-100); Monocytes Absolute Auto 600 /uL (0-900); Monocytes Percent Auto 7.2 % (3-14); Neutrophils Absolute Auto 5700 /uL (1500-7000); Neutrophils Percent Auto 71.8 % (50-75); Platelet Count 183 X10^3/uL (150-400); Red Blood Cell Count 5.16 X10^6/uL (4.0-5.2); Red Cell Distribution Width 19.2 % (11.6-14.8); White Blood Cell Count 7.9 X10^3/uL (4.5-11.0)
[2020-03-28 05:21] LABS: BUN Creatinine Ratio 22.5 (6-22); Blood Urea Nitrogen 20 mg/dL (7-17); Calcium 8.6 mg/dL (8.4-10.2); Chloride 94 mmol/L (98-107); Estimated Glomerular Filt Rate > 60.0 mL/min (>60); Glucose 113 mg/dL (80-110); HEMOLYSIS < 15 (0-50); Magnesium 1.8 mg/dL (1.6-2.3); Sodium 138 mmol/L (137-145)
[2020-03-28 05:47] LABS: Carbon Dioxide 40 mmol/L (22-32)
[2020-03-28 06:03] LABS: Thyroid Stimulating Hormone 5.46 uIU/mL (0.47-4.68)
--- NOTE | 2020-03-28 06:37 | PC.NURSE ---
Notified provider of high CO2 results. No new orders received. Removed O2 and pt 02 sats dropped to 87%. Restarted on o2 at 2L and sats back up to 92%. Pt alert and oriented x 4. Pt reports shortness has decreased, only feeling SOB breath getting OOB. Pt denies any pain. Voiding to bedside commode without issues. SBA. No complaints at this tiem
--- NOTE | 2020-03-28 08:39 | P.HP_ITS ---
History of Present Illness History of Present Illness Date Patient Seen: 03/28/20 Time Patient Seen: 08:40 Date of Onset of Symptoms: 12/13/19 Chief complaint: SWELLING OF LEGS SOB Narrative: 64-year-old female admitted for evaluation of a lower extremity edema and shortness of breath. She has been having shortness of breath gradually over the last several weeks unclear exactly when this started with perhaps a couple months ago. This is gradually gotten worse over time. 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 Recently over the last couple weeks she has noticed the swelling does not resolve when the swelling in her legs is worse than his ever been. She has also noticed that her skin is very sensitive even when a CT walks on her skin. She has had no chest pain no shortness of breath otherwise the mention. She has had no palpitations no dizziness no nausea no fever no chills no mucus production minimal cough nonproductive per No prior history of cardiac disease. She does have history sleep apnea. Does not use CPAP machine his insurance would not pay for it. Apparently has some history of some reactive airway disease unclear exactly history of that. Patient was given intravenous Lasix in the emergency room last evening and her shortness of breath sound improved significantly and she feels like her edema has pretty much resolved back to her usual. She has a history of hypertension being treated. Additionally restless leg period and sleep disorder Patient History Medical History Anemia (Resolved 1993) Arthritis (Chronic 1999) Asthma (Chronic) Chicken pox (Resolved) Depression (Chronic) Foot pain (Chronic 2010) Fractures (Resolved 2010) Gout (Chronic 1998) Hayfever (Chronic) Heart murmur (Chronic 1999) Knee pain (Chronic 2009) Measles (Resolved) Mumps (Resolved) Ovarian cyst (Resolved 1975) RLS (restless legs syndrome) (Chronic 2012) Sleep apnea (Chronic 2011) Urinary incontinence (Chronic 2013) Surgical History Anesthesia complication (Resolved) LAP-BAND surgery status (Resolved 2012) Status post arthroscopy (Resolved 2000) Status post cholecystectomy (Resolved 1998) Status post hysterectomy (Resolved 1995) Status post right foot surgery (Resolved 2009) Family & Social History Family History Father Diabetes mellitus Heart disease Hypertension High cholesterol Renal failure Grandfather Heart disease Heart attack Grandmother Cancer Breast cancer Mother Diabetes mellitus Heart disease Heart failure Grandfather Heart disease Grandmother Cancer Breast cancer Colon cancer Sister Age: 57 Fibromyalgia Bone cancer Social History: household members none Prior Living Arrangements RV Safety & Behavioral: Feels Safe in Current Yes Environment Been Physically Hurt or No Threatened By a Person Suicidal Ideation Description None Tobacco & Substance use: Smoking Status Never smoker alcohol intake never Substance Use Type does not use Meds Home Medications and Allergies Home Medications Medication Instructions Recorded Confirmed Type ascorbic acid (vitamin C) 1,000 mg PO QDAY #0 tab 04/08/16 03/27/20 History aspirin 81 mg PO QDAY #30 tab 04/08/16 03/27/20 History melatonin 3 mg PO HS #0 tab 04/08/16 03/27/20 History multivitamin [Multiple Vitamins] 1 tab PO QDAY #0 tab 04/08/16 03/27/20 History albuterol sulfate 90 mcg/actuation 2 puff INHALATION Q4-6H PRN #8.5 05/04/18 03/27/20 Rx aerosol inhaler gram pramipexole 0.5 mg tablet See Rx Instructions .ROUTE 07/03/19 03/27/20 Rx .COMPLEX #120 tab candesartan 32 mg tablet See Rx Instructions .ROUTE 08/24/19 03/27/20 Rx .COMPLEX #90 tablet hydrochlorothiazide 25 mg tablet See Rx Instructions .ROUTE 11/22/19 03/27/20 Rx .COMPLEX #90 tablet trazodone 100 mg tablet See Rx Instructions .ROUTE 01/12/20 03/27/20 Rx .COMPLEX #90 tablet albuterol sulfate [ProAir HFA] 2 puff INHALATION QID PRN 03/27/20 03/27/20 History naproxen 440 mg PO BID 03/27/20 03/27/20 History Allergies Allergy/AdvReac Type Severity Reaction Status Date / Time codeine [CODEINE] Allergy Intermediate GASTRIC Verified 03/27/20 16:46 UPSET Sulfa (Sulfonamide Allergy Intermediate RASH/HIVES Verified 03/27/20 16:46 Antibiotics) [SULFA (SULFONAMIDE ANTIBIOTICS)] Review of Systems Review of Systems ROS: Yes All systems reviewed with the patient and are negative except as otherwise documented Exam Vital Signs (past 8 hours): - 03/28/20 03:02 03/28/20 04:56 03/28/20 06:00 Temperature 97.9 F Pulse Rate 81 Respiratory Rate 20 Blood Pressure 148/69 H Pulse Oximetry 92 92 90 L 03/28/20 06:57 03/28/20 08:00 Temperature 97.0 F L Pulse Rate 72 Respiratory Rate 20 Blood Pressure 154/79 H Pulse Oximetry 90 L 92 Oxygen Delivery Method Nasal Cannula Oxygen Flow Rate 2 Narrative Exam Narrative: Gen.: Obese female examined in her hospital bed BMI noted of 62.3. She appears in no distress conversant easily does not appear short of breath Skin: Warm well perfused. No prominent lesions. Nonicteric. HEENT: PERRL., normal EOM, external ears canals TMs normal, nasal mucosa normal and midline septum, oropharynx without lesions. Neck: Trachea midline. Thyroid nontender and not enlarged. Carotids without bruits. No lymphadenopathy Back: No obvious deformity or tenderness. Chest: Clear to P&A. Symmetric. CV: RRR no murmur or gallop. No JVD. Abdomen: No masses bruits tenderness or visceromegaly. Neuro: Cranial nerves II through XII grossly intact. Sensory and motor exams intact. Gait normal. Mental status: Intact for screening Extremities: [No cyanosis or clubbing. She has +1 edema of calves and ankles. Musculoskeletal: No gross deformities Lymphatics: Negative for lymphadenopathy, supraclavicular axillary or inguinal She has red rash underneath both breasts and in the inguinal creases well as behind the right knee. Rash of bright red with sharply demarcated certainly consists of the yeast dermatitis Objective Labs Result Diagrams: 03/28/20 04:44 03/28/20 04:44 Labs: Laboratory Results - last 24 hr 03/27/20 03/27/20 03/27/20 17:14 17:14 17:14 WBC 9.2 RBC 5.35 H Hgb 13.5 Hct 42.3 MCV 79.1 L MCH 25.2 L MCHC 31.9 RDW 19.5 H Plt Count 197 Neut % (Auto) 72.4 Lymph % (Auto) 16.9 L [place] % (Auto) 6.7 Eos % (Auto) 3.3 Baso % (Auto) 0.7 Neut # (Auto) 6700 Lymph # (Auto) 1500 [place] # (Auto) 600 Eos # (Auto) 300 Baso # (Auto) 100 Sodium 136 L Potassium 4.1 Chloride 94 L Carbon Dioxide 36 H BUN 21 H Creatinine 0.91 Estimated GFR > 60.0 BUN/Creatinine Ratio 23.1 H Glucose 95 Lactate 1.0 Calcium 9.1 Magnesium Total Bilirubin 0.7 AST 31 ALT 36 H Alkaline Phosphatase 97 Total Creatine Kinase CK-MB (CK-2) CK-MB (CK-2) Rel Index Troponin I NT-Pro-B Natriuret Pep Total Protein 7.2 Albumin 3.9 Globulin 3.3 Albumin/Globulin Ratio 1.2 TSH Nasal Screen MRSA (PCR) COVID-19 PCR 03/27/20 03/27/20 03/27/20 17:14 17:42 21:00 WBC RBC Hgb Hct MCV MCH MCHC RDW Plt Count Neut % (Auto) Lymph % (Auto) [place] % (Auto) Eos % (Auto) Baso % (Auto) Neut # (Auto) Lymph # (Auto) [place] # (Auto) Eos # (Auto) Baso # (Auto) Sodium Potassium Chloride Carbon Dioxide BUN Creatinine Estimated GFR BUN/Creatinine Ratio Glucose Lactate Calcium Magnesium 1.8 Total Bilirubin AST ALT Alkaline Phosphatase Total Creatine Kinase 32 CK-MB (CK-2) TNP CK-MB (CK-2) Rel Index TNP Troponin I < 0.012 NT-Pro-B Natriuret Pep 485 H Total Protein Albumin Globulin Albumin/Globulin Ratio TSH Nasal Screen MRSA (PCR) Negative for mrsa COVID-19 PCR Negative 03/28/20 03/28/20 03/28/20 04:44 04:44 04:44 WBC 7.9 RBC 5.16 Hgb 13.2 Hct 41.0 MCV 79.4 L MCH 25.6 L MCHC 32.2 RDW 19.2 H Plt Count 183 Neut % (Auto) 71.8 Lymph % (Auto) 15.1 L [place] % (Auto) 7.2 Eos % (Auto) 5.1 H Baso % (Auto) 0.8 Neut # (Auto) 5700 Lymph # (Auto) 1200 [place] # (Auto) 600 Eos # (Auto) 400 Baso # (Auto) 100 Sodium 138 Potassium 4.0 Chloride 94 L Carbon Dioxide 40 H* BUN 20 H Creatinine 0.89 Estimated GFR > 60.0 BUN/Creatinine Ratio 22.5 H Glucose 113 H Lactate Calcium 8.6 Magnesium 1.8 Total Bilirubin AST ALT Alkaline Phosphatase Total Creatine Kinase CK-MB (CK-2) CK-MB (CK-2) Rel Index Troponin I NT-Pro-B Natriuret Pep Total Protein Albumin Globulin Albumin/Globulin Ratio TSH 5.46 H Nasal Screen MRSA (PCR) COVID-19 PCR Labs reviewed all of which is unremarkable TSH of 5.46 is noted and will be repeated tomorrow Chest x-ray in the ER is consistent with the fluid overload. Echocardiogram pending Assessment & Plan Assessment & Plan narrative: 1. Acute on chronic shortness of breath. No history of cardiac disease family history positive over. Patient does have risk factors including hypertension obesity sleep apnea and presumed hypoventilation. Responding well to intravenous Lasix 0 4. Cardiac enzymes negative. EKG unremarkable. Clear no obvious etiology for her shortness of breath per presumably is congestive heart failure. 2. Peripheral edema she has had this for the chronically but worse with the onset of the shortness of breath. Probably has systolic and diastolic congestive heart failure but pending echocardiogram. 3. If the echocardiogram is unremarkable we will get a chest CT 8 today to further evaluate her dyspnea. 4. History of sleep apnea on no machine could she can not afford should get a sleep study referral upon discharge. 5. Because of her presumed hypoventilation show get very minimal oxygen 1-1 0.5 L resulting in O2 sats in the low 90s. 6. TSH elevated repeated tomorrow. 7. Pre-existing hypertension stable 8. Pre-existing are less stable. Anticipate patient by being discharged on Wednesday feeding evaluation as stated. Medication manipulations outpatient forthcoming
[2020-03-28] MEDS: CANDESARTAN 16 MG TABLET 32 MG PO (08:56)
[2020-03-28] MEDS: SPIRONOLACTONE 25 MG TABLET PO (08:56)
[2020-03-28] MEDS: ENOXAPARIN 40 MG/0.4 ML SYRINGE SUBCUT ×2 (08:56→21:42)
[2020-03-28] MEDS: NYSTATIN POWDER 15GM 1 APPLIC TOP ×3 (08:57→21:45)
[2020-03-28] MEDS: FUROSEMIDE 20 MG/2 ML VIAL 40 MG IV ×3 (08:57→21:41)
[2020-03-28] MEDS: POTASSIUM CHLORIDE 20 MEQ TAB PO ×3 (08:57→17:39)
--- NOTE | 2020-03-28 11:05 | DI.ECHO.S_ITS ---
Echocardiogram Report + + :Name: VARGHESE LÓPEZ Study Date: 03/28/2020 Height: 66 in : :[employer] Weight: 385 lb : : Gender: Female BSA: 2.6 m2 : :: 1955 Age: 64 yrs BP: 154/79 mmHg: :Reason For Study: Elevated BNP, Hypoxia, Pulmonary Congestion : :Ordering Physician: [place] : :Hospitalist Performed By: Soledad Benson : :Referring: BUTCH DE LUNA : + + Interpretation Summary There is mild concentric left ventricular hypertrophy. The ejection fraction is estimated to be 60-65%. There is no significant valvular heart disease. Procedure: A two-dimensional transthoracic echocardiogram with color flow and Doppler was performed. The study quality was technically difficult. There is no prior echocardiogram noted for this patient. The patient was in sinus rhythm with heart rates between 65-70 bpm during the exam. Left Ventricle: The left ventricle is normal in size. There is mild concentric left ventricular hypertrophy. The ejection fraction is estimated to be 60-65%. Right Ventricle: The right ventricle is not well visualized. The right ventricular systolic function is normal. Atria: The left atrium is moderately dilated. The right atrium is normal in size. There is no Doppler evidence for an interatrial shunt. Mitral Valve: The mitral valve leaflets appear mildly thickened, but open well. There is mild mitral annular calcification. There is trace mitral regurgitation. Aortic Valve: The aortic valve is not well visualized. The aortic valve is trileaflet. The aortic valve opens well. There is no aortic valve stenosis. No aortic regurgitation is present. Tricuspid Valve: The tricuspid valve is not well visualized, but is grossly normal. Pulmonary artery pressures cannot be estimated because of the lack of a measurable TR jet velocity but the IVC suggests a CVP of around 8 mmHg. There is mild tricuspid regurgitation. Pulmonic Valve: The pulmonic valve is not well seen, but is grossly normal. There is trace pulmonic regurgitation. Great Vessels: The aortic root is normal size. The ascending aorta is mildly enlarged. The IVC is dilated (diameter is greater than 2.1 cm) yet it collapses greater than 50% with a sniff. This suggests a right atrial pressure of 8 mm Hg. Pericardium/ Pleura There is no pericardial effusion. There is no pleural effusion. MMode/2D Measurements & Calculations LVIDd: 5.5 cm LVOT diam: 2.0 cm LVIDs: 3.8 cm Ao root diam: 2.7 cm FS: 31.2 % asc Aorta Diam: 3.4 cm EPSS: 0.83 cm Ao Arch Diam (Prox Trans): 3.0 cm IVSd: 1.3 cm LVPWd: 1.1 cm LV yan. diameter/BSA (cm/m^2): 2.1 LV sys. diameter/BSA (cm/m^2): 1.4 LA A2 area: 29.7 cm2 RA long axis: 5.8 cm LA A4 area: 30.0 cm2 RA area: 17.7 cm2 LA length (vol): 6.8 cm RA vol: 45.8 ml LA vol: 111.5 ml RA : 17.3 ml/m2 LA vol index: 42.2 ml/m2 IVC diam: 2.2 cm TAPSE: 2.0 cm Doppler Measurements & Calculations Ao V2 max: 183.6 cm/sec LVOT Max Pepe: 123.9 cm/sec Ao V2 mean: 124.6 cm/sec LV V1 max P.1 mmHg Ao max P.5 mmHg LV V1 VTI: 26.2 cm Ao mean P.0 mmHg JAZLYN(I,D): 2.1 cm2 Ao V2 VTI: 37.9 cm JAZLYN(V,D): 2.1 cm2 sev ratio: 0.69 JAZLYN indexed to BSA (cm^2/m^2): 0.81 MV E max pepe: 95.2 cm/sec PA V2 max: 109.2 cm/sec MV A max pepe: 88.4 cm/sec PA V2 mean: 78.3 cm/sec MV E/A: 1.1 PA mean P.7 mmHg Med Peak E' Pepe: 5.4 cm/sec PA pr(Accel): 19.1 mmHg E/E' med: 17.5 Lat Peak E' Pepe: 5.4 cm/sec E/E' lat: 17.7 E/e' average: 17.6 MV dec time: 0.23 sec SV(LVOT): 81.3 ml Reading Physician:02:32 PM
[2020-03-28] MEDS: LOSARTAN 50 MG TABLET PO ×2 (14:11→21:41)
--- NOTE | 2020-03-28 15:58 | PC.NURSE ---
Addendum entered by Renetta Renteria R.N. 03/28/20 18:20: 1815- BP remains elevated 219/94. Patient remains asymptomatic. Dr. Morton notified and orders recieved. Wiill monitor. Original Note: 1545- 02 Increased to 2 liter nasal cannula. Patient saturation 88-89% while visiting with her brother. RT aware and patient encouraged to do the IS. BP high at 191/88 po medication given per order on day shift. Will monitor.
--- NOTE | 2020-03-28 16:31 | DI.CT.S_ITS ---
PROCEDURE: CT ANGIO CHEST PE PROTOCOL INDICATIONS: Shortness of breath TECHNIQUE: After the administration of intravenous contrast, 2 mm thick sections acquired from the pulmonary apices to the posterior costophrenic angles. 3-dimensional maximum intensity projection (MIP) coronal and sagittal reformats were then acquired through the thorax. For radiation dose reduction, the following was used: automated exposure control, adjustment of mA and/or kV according to patient size. COMPARISON: None. FINDINGS: Image quality: Excellent. Pulmonary arteries: Pulmonary arteries are normal in size, and demonstrate no intraluminal filling defects to suggest central pulmonary embolism. Lungs and pleura: A 1.1 cm nodule is present at the posterior left lower lobe. Trace scarring is present around this nodule suggesting rounded atelectasis. Mild atelectasis is present at the inferior margin of the left upper lobe. No pleural effusions or pneumothorax. Central and peripheral airways are patent. Mediastinum: Heart size is normal, without pericardial effusion. No mediastinal or hilar adenopathy. Thoracic aorta is normal in caliber and enhancement. Scattered atheromatous calcifications are present within the aortic arch. Esophagus is normal in caliber, without hiatal hernia. Bones and chest wall: No suspicious bony lesions. Ribs and thoracic spine appear intact throughout. Thyroid gland is unremarkable. No axillary or supraclavicular adenopathy. Abdomen: Visualized upper abdominal solid organs appear normal in the early arterial phase of enhancement. IMPRESSION: 1. No acute pulmonary embolus. 2. Left lower lobe 1.1 cm nodule which may represent rounded atelectasis. However, no prior studies are available for comparison. Please see follow-up guidelines below. 3 month follow-up or PET-CT recommended. Fleischner Society criteria for SOLID lung nodule followup. Nodule size (mm)Low-risk patientHigh-risk patient?4No follow-up neededFollow-up at 12 mo; if no change, no further follow-up>3-7Eygxlt-ie CT at 12 mo; if no change, no further follow-up needed.Initial follow-up CT at 6-12 mo, then 18-24 mo if no change. >6-8Initial follow-up CT at 6-12 mo, then 18-24 mo if no change. Initial follow-up CT at 3-6 mo, then 9-12 mo and 24 mo if no change. >8Follow-up CT at 3, 9, 24 mo. Or PET and/or biopsy.Same as for low-risk pts. Fleischner Society criteria for SUB-SOLID lung nodule followup. Solitary pure ground-glass nodules5 mm or lessNo followup needed. >5 mm3 mo follow-up CT to confirm persistence. Then annual CT for 3 years. Part-solid nodules3 mo follow-up CT to confirm persistence. If persistent with solid component <5 mm, annual CT for at least 3 years. If solid component is 5 mm or more, biopsy or surgical resection. Consider PET-CT for lesions > 10 mm. Multiple sub-solid nodulesPure ground glass nodules [address] at 2 and 4 years. Pure ground glass nodules >5 mm without dominant lesion. [address] to confirm persistence, then annual followup CT for at least 3 years. Dominant nodule(s) with part-solid or solid component. [address] to confirm persistence. If persistent, consider biopsy or surgical resection, shaista if lesions have >5 mm solid component. Dictated by: Zeina Maldonado M.D. on 03/28/2020 at 17:02 Approved by: Zeina Maldonado M.D. on 03/28/2020 at 17:10
[2020-03-28] MEDS: AMLODIPINE 5 MG TABLET PO (18:18)
[2020-03-28] MEDS: MELATONIN 3 MG TABLET PO (21:41)
[2020-03-28] MEDS: TRAZODONE 100 MG TABLET PO (21:45)
[2020-03-28] MEDS: PRAMIPEXOLE 1 MG TABLET PO (21:47)
[2020-03-29] VITALS (8 sets, daily range): BP systolic 148–167; BP diastolic 77–87; PULSE 70–83; RESP 18–20; TEMP 36–36.7; O2SAT 86–95
[2020-03-29] MEDS: ACETAMINOPHEN 325 MG TABLET 650 MG PO (03:58)
[2020-03-29 05:07] LABS: BUN Creatinine Ratio 25.8 (6-22); Blood Urea Nitrogen 25 mg/dL (7-17); Calcium 9.2 mg/dL (8.4-10.2); Chloride 91 mmol/L (98-107); Glucose 121 mg/dL (80-110); HEMOLYSIS 16 (0-50); Potassium 4.2 mmol/L (3.4-5.1); Sodium 136 mmol/L (137-145)
[2020-03-29 05:13] LABS: Carbon Dioxide 36 mmol/L (22-32)
[2020-03-29 05:51] LABS: T4 Total Thyroxine 9.91 ug/dL (5.5-11.0); Triiodothryronine T3 Uptake 38.8 % (23.5-40.5)
[2020-03-29 06:04] LABS: Thyroid Stimulating Hormone 4.09 uIU/mL (0.47-4.68)
[2020-03-29] MEDS: LOSARTAN 50 MG TABLET PO ×2 (09:13→21:48)
[2020-03-29] MEDS: SPIRONOLACTONE 25 MG TABLET PO (09:13)
[2020-03-29] MEDS: AMLODIPINE 5 MG TABLET PO (09:13)
[2020-03-29] MEDS: POTASSIUM CHLORIDE 20 MEQ TAB PO ×3 (09:13→17:13)
[2020-03-29] MEDS: ENOXAPARIN 40 MG/0.4 ML SYRINGE SUBCUT ×2 (09:14→21:48)
[2020-03-29] MEDS: FUROSEMIDE 40 MG TABLET PO (09:14)
[2020-03-29] MEDS: NYSTATIN POWDER 15GM 1 APPLIC TOP ×2 (09:14→21:50)
--- NOTE | 2020-03-29 09:53 | PM.PN.1 ---
Subjective Subjective Date Patient Seen: 03/29/20 Time Patient Seen: 09:45 Interval history: Shortness of breath. Patient feeling better clearly less short of breath has not been terribly active her ambulatory since she has been here. Appetite is adequate. Did sleep well last night but done no surprised. Breathing is better no new symptoms edema has improved significantly. Exam Vital Signs (past 8 hours): - 03/29/20 04:06 03/29/20 08:00 Temperature 97.3 F L 96.8 F L Pulse Rate 70 73 Respiratory Rate 18 18 Blood Pressure 156/80 H 148/77 H Pulse Oximetry 93 95 Oxygen Delivery Method Nasal Cannula Oxygen Flow Rate 0 Narrative Exam Narrative: Patient resting quietly in hospital bed playing games on her iPad. She appears in no distress. Lungs again showed decreased breath sound does not really take a deep breath I hear no rales rhonchi wheezes. Cardiac exam regular rhythm no murmur gallop. And she has trace edema as she did yesterday. Objective Labs Result Diagrams: 03/28/20 04:44 03/29/20 04:17 Labs: Laboratory Results - last 24 hr 03/29/20 03/29/20 04:17 04:17 Sodium 136 L Potassium 4.2 Chloride 91 L Carbon Dioxide 36 H BUN 25 H Creatinine 0.97 Estimated GFR 58.0 L BUN/Creatinine Ratio 25.8 H Glucose 121 H Calcium 9.2 TSH 4.09 D Thyroxine (T4) 9.91 T3 Uptake 38.8 recent labs reviewed TSH is a 4.09 normal Assessment & Plan Assessment & Plan narrative: 1. Fluid overload has improved significantly. Still no obvious etiology for the symptoms solids. Echocardiogram was within normal limits. Chest CT showed no pulmonary embolism. Patient currently benefit from 1 L nasal oxygen but it is unclear whether not as necessary. She will get out of bed take deep breaths have respiratory therapy work with her when attempting to get her off oxygen altogether. Anticipating her being discharged off oxygen. 2. Will continue on Lasix 40 mg daily orally and spironolactone to anticipate being discharged on this presumably tomorrow. 3. Dr. Zuniga on-call for the weekend he will see her tomorrow presumably discharge her off oxygen hopefully
--- NOTE | 2020-03-29 13:22 | PC.NURSE ---
Assess- Patient is on 2l of o2 and sats have been 87-91%. She just ambulated in the ames ways and gets easily winded. Patient is obese, she has 2+ pitting edema to bilateral lower extremities. She has some yeast to folds and under breasts, applying nystatin cream to area's. On tele, VSS. Appetite is good and she is sitting back in her chair after work.
--- NOTE | 2020-03-29 15:59 | CM.DANOTE ---
Discharge Planning/Care Management DCP: assessment: case received, EMR reviewed and met yesterday with pt. Introduced self and role Pt is a 64 year old female who admitted night of 03/27 to care of [facility] team. PCP: Dr. Morton. Payer: [place] /Medicaid. Pt is found to be very alert and eager for conversation. 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 RT is seeing pt and recommending a formal sleep study. She says she [facility] but the insurance at that time would not cover a CPAP. She now has different insurance and is hopeful to do this process again as an OUTPT as she expects she will have coverage for the needed equipment. Pt lives on her brother Feroz's property and says they are both supportive for each other. P: at his point: home when stable for same. 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 CM Discharge Assessment Start: 03/29/20 15:57 Freq: Status: Active Protocol: Document 03/29/20 15:57 ITV (Rec: 03/29/20 15:59 ITV [id number]) Discharge Planning Assessment Advance Directives? No History Provided By Patient,Medical Record Prior Living Arrangements RV Household Members none Independent with ADL's Yes Is patient alert and oriented? Yes DME Already Rented / Owned Cane Comment walking stick with rubber tip Review Status In Process
--- NOTE | 2020-03-29 17:20 | DIET.PN ---
Dietary Progress Note Assessment: 64y F admitted for LLE and SOB referred to nutrition by CM for BMI 61.9 Pt moved here from [place] where she lives in [address] [place] [address] on her brothers property. Pt had gastric band placed in 2012 with several adjustments the first few months and lost quite a bit of weight. Pt has gained back the weight and attributes this to losing her bariatric support group and practitioner as well as physical inactivity. Pt has two complications- 1. if she eats certain carbs they gum up at the LES and she has to force regurgitate them (most bread, cake, cookies). 2. if not attaining her 80g PRO/d she notices her hair starts to fall out. Usual Day: 6-7am: Lunchable (cracker/meat/cheese) 10-11am: 15grain bread c ham or turkey and omalley/miracle whip, recently started to eat bagged salad mix. 3-4pm: pork stew or turkey and noodles or chicken and rice Pt drinks one cola per day, pre-made white tea c raspberry, and 32oz ice water Pt follows this routine M- but veers off on weekends where she will eat chips and candy. Pt must chew all food thoroughly to avoid lapband complication #1, takes 30min to eat sandwich and 60min to eat dinner Pt has no regular physical activity spending her time at computer or on patio set outside, goes to town once per week for shopping. Pt reports bilateral knee pain which limits activity choices. Pt was going to sign up for [employer] to start riding stationary bicycle but that has been paused r/t global pandemic. Pts super morbid obesity contributes to her LLE and SOB HT: 167.6cm WT: 174kg BMI: 61.9 Nutrition Diagnosis: super morbid obesity r/t undesirable food choices and physical inactivity aeb pt admitted for SOB/LLE, BMI 61.9 despite bariatric gastric band in place, pt reports no physical activity, pt diet high in simple carbs and protein but lacking in fruits and vegetables. Interventions: 1. Encouraged pts consumption of bagged salad mix to incorporate more dietary fiber and low joão choices to day. 2. Encouraged pt to sign up for her local water aerobics class which is currently open and available by reservation. Pt likes water aerobics and will check it out. Diet Order: General
[2020-03-29] MEDS: MELATONIN 3 MG TABLET PO (21:49)
[2020-03-29] MEDS: TRAZODONE 100 MG TABLET PO (21:49)
[2020-03-29] MEDS: PRAMIPEXOLE 1 MG TABLET PO (21:50)
[2020-03-30] VITALS (11 sets, daily range): BP systolic 151–177; BP diastolic 78–93; PULSE 73–93; RESP 16–20; TEMP 36.1–36.5; O2SAT 92–96
[2020-03-30 05:11] LABS: BUN Creatinine Ratio 30.3 (6-22); Blood Urea Nitrogen 27 mg/dL (7-17); Calcium 9.4 mg/dL (8.4-10.2); Carbon Dioxide 39 mmol/L (22-32); Chloride 93 mmol/L (98-107); Estimated Glomerular Filt Rate > 60.0 mL/min (>60); Glucose 134 mg/dL (80-110); HEMOLYSIS < 15 (0-50); Potassium 4.5 mmol/L (3.4-5.1); Sodium 135 mmol/L (137-145)
[2020-03-30] MEDS: SPIRONOLACTONE 25 MG TABLET PO (08:14)
[2020-03-30] MEDS: ENOXAPARIN 40 MG/0.4 ML SYRINGE SUBCUT ×2 (08:17→20:25)
[2020-03-30] MEDS: LOSARTAN 50 MG TABLET PO ×2 (08:18→20:26)
[2020-03-30] MEDS: FUROSEMIDE 40 MG TABLET PO (08:18)
[2020-03-30] MEDS: AMLODIPINE 5 MG TABLET PO (08:18)
[2020-03-30] MEDS: POTASSIUM CHLORIDE 20 MEQ TAB PO (08:18)
[2020-03-30] MEDS: SODIUM CHLORIDE 0.9% FLUSH 10 ML IV ×2 (08:21→20:28)
--- NOTE | 2020-03-30 10:18 | P.PN_ITS ---
Subjective Subjective Date Patient Seen: 03/30/20 Time Patient Seen: 10:18 Interval history: Patient sitting up at the bedside chair without particular difficulty Is clearly become hypoxic at times overnight, probably most likely connected to significant apnea this been witnessed Also somewhat hypoxic specially with activity during the day Feels much better however. Her edema swelling and breathing are better overall than they were previously Exam Vital Signs (past 8 hours): - 03/30/20 03:38 03/30/20 08:00 03/30/20 08:18 Temperature 97.2 F L 97.7 F Pulse Rate 93 H 73 Respiratory Rate 20 20 Blood Pressure 152/78 H 155/83 H 155/83 H Pulse Oximetry 95 92 03/30/20 08:43 Temperature Pulse Rate Respiratory Rate Blood Pressure Pulse Oximetry 96 Oxygen Delivery Method Nasal Cannula Oxygen Flow Rate 2 Objective Labs Result Diagrams: 03/28/20 04:44 03/30/20 04:50 Labs: Laboratory Results - last 24 hr 03/30/20 04:50 Sodium 135 L Potassium 4.5 Chloride 93 L Carbon Dioxide 39 H BUN 27 H Creatinine 0.89 Estimated GFR > 60.0 BUN/Creatinine Ratio 30.3 H Glucose 134 H Calcium 9.4 Assessment & Plan Assessment & Plan narrative: 1. Acute congestive heart failure with preserved left ventricular ejection fra ction-continue with current dose diuretic therapy which seems to be helping tremendously. Plan to continue this as an outpatient as well as low-dose potassium supplementation. Continue with spironolactone as well and we have discontinued thiazide diuretic 2. Probable sleep apnea-outpatient evaluation and probably needs to be on home oxygen overnight until this can be properly evaluated 3. Obesity hypoventilation-this is likely a strong component to her persistent hypoxia certainly is a component to her sleep apnea hypoxia as above. Continue with current meds suggest weight loss and will likely benefit from home oxygen therapy at least initially 4. Patient's other medical problems including her asthma hypertension etcetera appear to be stable. Overall patient is much improved. If we can get her set up for home oxygen therapy or if her room air oxygen saturations remained normal with activity she can be discharged. Hopefully we can get this set up so she can go home tomorrow or the following day. I believe she probably needs oxygen long long-term given her obesity, and certainly probably needs oxygen at night as well as BiPAP for her sleep apnea again given her obesity, but she will need a sleep evaluation before that can be implemented. Fortunately her echo did not show evidence of right heart failure at this time although echo was somewhat limited because of her size. Now is the time to intervene with oxygen replacement therapy. Note: Greater than 25 minutes was spent evaluating the patient on the floor, including examining the patient, discussing clinical course with clinical and nursing staff, reviewing clinical course in the computer, preparing documenta tion and writing orders for continued management of care, discussing status with family as appropriate, reviewing plans for the next 24 hours with both patient/family and nursing staff as appropriate.
[2020-03-30] MEDS: NYSTATIN POWDER 15GM 1 APPLIC TOP ×3 (11:45→20:28)
--- NOTE | 2020-03-30 14:27 | CM.DPC ---
Addendum entered by Ritika Zuñiga R.N. 03/30/20 15:33: Confirmed with respiratory therapist that patient will be using [facility]. Original Note: DCP Cont: Spoke to respiratory therapy, for it is noted that patient will be discharged home on home oxygen, should happen tomorrow. Respiratory therapy stated that they have the necessary paper work, but will require provider to add additional information in note. Respiratory therapist also indicated that patient will need a vendor to pick for her home oxygen, and will go over this with her today. P: DCP to continue to follow. Patient could most likely go home tomorrow with oxygen set up at home. Ritika Zuñiga RN/Dredge Mechanic
--- NOTE | 2020-03-30 14:43 | PC.NURSE ---
PT DOING MUCH BETTER (PER HER) AND HER ASSESSMENT - SHE HAS DIURESED QUITE A BIT OVER LAST 2 DAYS AND TELE REMAINS SR/SA NOTED A [facility] WELL- ECHO COMPLETED AND PT PREPPING FOR DISCHARGE TO HOME PROBABLY TOMORROW- HOME O2 ASSESSMENT COMPLETED BY RT - DENIES PAIN AND YEAST-LIKE RASH TO BILAT BREAST FOLDS (AROUND TO BACK ON THE RIGHT ) BILAT GROINS AND POSTERIOR KNEE AREAS-
--- NOTE | 2020-03-30 17:23 | PC.NURSE ---
Addendum entered by Karin Parsons R.N. 03/30/20 22:16: Pt laying in bed resting before sleep, RT and this nurse noted that pt was desaturating on 1L NC, titrated O2 to 2L NC at rest, will continue to monitor. Original Note: Evening shift note: Pt sitting in chair, introduced myself and assessed pt. Alert and oriented x4, Patient is on 2l of O2 and sats have been 89-94%. She has ambulated in the ames ways for day shift and notes that she gets easily winded. Patient is obese, she has 1+ pitting edema to bilateral lower extremities. She has some yeast to folds, in her popliteal area and under breasts, applying nystatin powder to area's. On tele, VSS, no further needs at this time, will continue to monitor.
[2020-03-30] MEDS: MELATONIN 3 MG TABLET PO (20:26)
[2020-03-30] MEDS: PRAMIPEXOLE 1 MG TABLET PO (20:26)
[2020-03-31 01:10] VITALS: BP 190/91; PULSE 84; RESP 18; TEMP 36.6; O2SAT 93
[2020-03-31 05:00] VITALS: BP 173/72; PULSE 81; RESP 18; TEMP 36.2; O2SAT 95
--- NOTE | 2020-03-31 06:12 | PC.NURSE ---
Auto Service Mechanic Note-Patient slept throughout the night with 2L NC on, SpO2 remained >90% until 414, then started to have apnea lasting >5-10 seconds, when I would enter room, sats would be back up >94%, patient rouses easily. Still has shortness of breath while ambulating into BR, denies chest pain or dyspnea. SR/SA on telemetry.
[2020-03-31 07:51] VITALS: PULSE 84; RESP 16; O2SAT 95
[2020-03-31 08:00] VITALS: BP 156/74; PULSE 73; RESP 20; TEMP 36.3; O2SAT 95
[2020-03-31] MEDS: AMLODIPINE 5 MG TABLET PO (08:24)
[2020-03-31] MEDS: FUROSEMIDE 40 MG TABLET PO (08:24)
[2020-03-31] MEDS: POTASSIUM CHLORIDE 20 MEQ TAB PO (08:24)
[2020-03-31] MEDS: LOSARTAN 50 MG TABLET PO (08:24)
[2020-03-31] MEDS: SPIRONOLACTONE 25 MG TABLET PO (08:24)
[2020-03-31] MEDS: ENOXAPARIN 40 MG/0.4 ML SYRINGE SUBCUT (08:24)
[2020-03-31] MEDS: NYSTATIN POWDER 15GM 1 APPLIC TOP (08:24)
[2020-03-31] MEDS: SODIUM CHLORIDE 0.9% FLUSH 10 ML IV (08:25)
--- NOTE | 2020-03-31 11:44 | P.DS_ITS ---
History of Present Illness History of Present Illness Date Patient Seen: 03/31/20 Time Patient Seen: 11:44 Chief complaint: SWELLING OF LEGS SOB Narrative: 64-year-old female admitted for evaluation of a lower extremity edema and shortness of breath. She has been having shortness of breath gradually over the last several weeks unclear exactly when this started with perhaps a couple months ago. This is gradually gotten worse over time. 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 Recently over the last couple weeks she has noticed the swelling does not resolve when the swelling in her legs is worse than his ever been. She has also noticed that her skin is very sensitive even when a CT walks on her skin. She h as had no chest pain no shortness of breath otherwise the mention. She has had no palpitations no dizziness no nausea no fever no chills no mucus production minimal cough nonproductive per No prior history of cardiac disease. She does have history sleep apnea. Does not use CPAP machine his insurance would not pay for it. Apparently has some history of some reactive airway disease unclear exactly history of that. Patient was given intravenous Lasix in the emergency room last evening and her shortness of breath sound improved significantly and she feels like her edema has pretty much resolved back to her usual. She has a history of hypertension being treated. Additionally restless leg period and sleep disorder {from Dr. Morton's H&P 03/28/20} Discharge Providers Provider Date of admission: 03/27/20 19:32 Discharge Date: 03/31/20 Primary care physician: Marciano Morton MD Discharge provider: Tim Zuniga MD Summary Hospital Course Discharge Diagnosis: 1. Acute on chronic respiratory failure, acute portion resolved 2. Acute congestive heart failure, with preserved left ventricular function 3. Obesity hypoventilation syndrome 4. Morbid obesity 5. Sleep apnea, obstructive, of the adult 6. Hypertension 7. Restless leg syndrome Hospital Course: Patient was admitted after presenting with significant dyspnea and being found to be in acute respiratory failure on top of chronic respiratory failure. Patient clearly has an underlying obesity hypoventilation syndrome with chronic elevation of her bicarbonate level suggesting same. She was treated with IV diuresis for presumed acute congestive heart failure. Echocardiogram showed preserved left ventricular function with essentially normal valvular function. This was a transthoracic echo and because of her size was somewhat difficult to interpret. Patient improved significantly with above measures including the continued IV diuresis. She was switched to oral diuresis and continue to be improved. She continued to require oxygen as she desaturated to 86% at rest and with room air without supplemental oxygen. She was sent home with 1 L of oxygen at rest and at nighttime as well as 3 L with ambulation or activity Patient's blood pressure was borderline elevated as well and she was started on new antihypertensive which was prescribed upon discharge as well Patient will need outpatient evaluation for presumed obstructive sleep apnea as she is not currently being treated for this and certainly is a component in her overall issues as above Status at Discharge Cognitive/behavioral status at discharge: at baseline, oriented Functional status at discharge: independent ambulation Overall status at discharge: patient is progressing back to baseline Time Spent with Patient Time spent: Less than 30 minutes Exam Vital Signs (past 8 hours): - 03/31/20 05:00 03/31/20 07:51 03/31/20 08:00 Temperature 97.2 F L 97.3 F L Pulse Rate 81 84 73 Respiratory Rate 18 16 20 Blood Pressure 173/72 H 156/74 H Pulse Oximetry 95 95 95 Oxygen Delivery Method Nasal Cannula Oxygen Flow Rate 2 Objective Labs Result Diagrams: 03/28/20 04:44 03/30/20 04:50 Discharge Plan Discharge Plan Patient Disposition: Home Discharge orders & Medications Prescriptions: New amlodipine [Norvasc] 5 mg Tablet 5 mg PO DAILY Qty: 30 RF: 2 furosemide 40 mg Tablet 40 mg PO DAILY Qty: 30 RF: 3 potassium chloride [Klor-Con M20] 20 mEq Tablet,Er Particles/Crystals 20 meq PO DAILY Qty: 30 RF: 3 spironolactone 25 mg Tablet 25 mg PO DAILY Qty: 30 RF: 3 Continued aspirin 81 MG tablet,delayed release (DR/EC) 81 mg PO QDAY Qty: 30 RF: 0 melatonin 3 MG tablet 3 mg PO HS Qty: 0 RF: 0 ascorbic acid (vitamin C) 500 MG tablet 1,000 mg PO QDAY Qty: 0 RF: 0 multivitamin [Multiple Vitamins] 1 EACH tablet 1 tab PO QDAY Qty: 0 RF: 0 albuterol sulfate 90 mcg/actuation HFA aerosol inhaler 2 puff INHALATION Q4-6H PRN (Reason: wheezing) Qty: 8.5 RF: 0 pramipexole 0.5 mg tablet See Rx Instructions .ROUTE .COMPLEX Qty: 120 RF: 1 candesartan 32 mg tablet See Rx Instructions .ROUTE .COMPLEX Qty: 90 RF: 2 trazodone 100 mg tablet See Rx Instructions .ROUTE .COMPLEX Qty: 90 RF: 1 naproxen 500 mg tablet 440 mg PO BID RF: 0 Discontinued hydrochlorothiazide 25 mg tablet See Rx Instructions .ROUTE .COMPLEX Qty: 90 RF: 1 albuterol sulfate [ProAir HFA] 90 mcg/actuation Hfa Aerosol Inhaler 2 puff INHALATION QID PRN (Reason: Shortness Of Breath) RF: 0 Follow up/Referrals: Marciano Morton MD [Primary Care Provider] - 1 Week (Patient to call on WednesdayApril 01 for appointment in approximately 1 week) Discharge Health Status Multidrug resistant organism: No MDRO Diet/Activity/Treatments Diet: Low-sodium Oxygen: 1 liter/minute nasal cannula at rest/night, 3 liters/minute w/activity Visit Report/Discharge Packet Visit Report Forms: Patient Portal/API, Stroke Signs & Symptoms Discharge Data Primary Care Provider: Marciano Morton
== END 2020-03-31 13:05 | disposition home or self-care (01) | DRG 194 ==
LOC: ED 17:01 → AC 19:33 → ICU 20:12
PROVIDERS: Admitting Provider Family Medicine; Emergency Provider Nurse Practitioner Family; Family Provider Family Medicine; PCP Family Medicine; Referring Provider Nurse Practitioner Family; Visit Provider Family Medicine
DX: I11.0 Hypertensive heart disease with heart failure (principal); I50.31 Acute diastolic (congestive) heart failure; J96.21 Acute and chronic respiratory failure with hypoxia; E66.2 Morbid (severe) obesity with alveolar hypoventilation; Z68.44 Body mass index [BMI] 60.0-69.9, adult; G25.81 Restless legs syndrome; Z03.818 Encounter for observation for suspected exposure to other biological agents ruled out
CPT/HCPCS: 36415; 71045; 71275; 80048; 80053; 82550; 83605; 83735; 83880; 84436; 84443; 84479; 84484; 85025; 87635; 87797; 93005; 93010; 93306; 94618; 94760; 94762; 96374; 99232; 99233; 99238; 99284; 99285; J1650; J1940; Q9967

== ENCOUNTER → 2020-05-13 12:33 | Outpatient (CLI) | payer OTHER, MEDICAID, SELFPAY ==
[2020-03-27 20:49] VITALS: BMI 62.1
[2020-05-13 14:35] LABS: Hemoglobin A1C% w Est Avg Glu 6.6 % (4.0-6.0)
[2020-05-13 15:00] LABS: BUN Creatinine Ratio 42.2 (6-22); Blood Urea Nitrogen 38 mg/dL (7-17); Carbon Dioxide 34 mmol/L (22-32); Chloride 96 mmol/L (98-107); Estimated Glomerular Filt Rate > 60.0 mL/min (>60); Glucose 166 mg/dL (80-110); HEMOLYSIS < 15 (0-50); Potassium 4.7 mmol/L (3.4-5.1); Sodium 137 mmol/L (137-145)
== END ==
PROVIDERS: Family Provider Family Medicine; PCP Family Medicine; Referring Provider Family Medicine; Visit Provider Family Medicine
DX: I50.31 Acute diastolic (congestive) heart failure (principal)
CPT/HCPCS: 36415; 80048; 83036

== ENCOUNTER 2021-01-14 06:33 | Emergency (ER) | payer OTHER, SELFPAY ==
[2020-03-27 20:49] VITALS: BMI 62.1
[2021-01-14] VITALS (8 sets, daily range): BP systolic 175–221; BP diastolic 77–103; PULSE 60–84; RESP 12–25; TEMP 36.2; O2SAT 94–99; BMI 57.7
--- NOTE | 2021-01-14 06:43 | DI.RAD.S_ITS ---
PROCEDURE: XR CHEST 1V INDICATIONS: Shortness of breath TECHNIQUE: One view of the chest was acquired. COMPARISON: [facility], CR, XR CHEST 1V, 03/27/2020, 17:01. FINDINGS: Surgical changes and devices: None. Lungs and pleura: There is cephalization of pulmonary vasculature and interstitial prominence. No pleural effusions or pneumothorax. Mediastinum: Mediastinal contours appear normal. Heart is enlarged Bones and chest wall: No suspicious bony lesions. Overlying soft tissues appear unremarkable. IMPRESSION: Cardiomegaly with cephalization of pulmonary vasculature and interstitial prominence concerning for CHF. Dictated by: Sunita Bartlett MD, PhD on 01/14/2021 at 9:07 Approved by: Sunita Bartlett MD, PhD on 01/14/2021 at 9:08
[2021-01-14 07:22] LABS: Fractionated Inspired Oxygen 32; HCO3 ABG 33 mmol/L (22-26); Oxygen Saturation ABG 98 % (95-100); PCO2 ABG 49.7 mmHg (35-45); PO2 ABG 99 mmHg (80-100); TCO2 ABG 34 mmol/L (21-31); pH ABG 7.43 (7.35-7.45)
--- NOTE | 2021-01-14 07:54 | ED.GENADULT ---
HPI - General Adult General Chief complaint: Shortness of Breath/Dyspnea Stated complaint: having gout and sciatica attack, SOB Time Seen by Provider: 01/14/21 06:36 Source: patient Mode of arrival: Wheelchair Limitations: no limitations History of Present Illness HPI narrative: Patient is a 65-year-old female. She does have a history of shortness of breath and she is on 3 L of oxygen at home at all times. She states that this started after last year she developed swelling in her lower extremities. She was admitted to the hospital. Was given medication for the swelling which she has continued. She is on Lasix at home. She states that during that admission she did have her heart evaluated and stated that she was told the echocardiogram was unremarkable. She also had her lung exam and and was told that her lungs were okay however she has been unable to come off the oxygen. She does feel like she has become somewhat more swollen over the past couple days although she has not needed to increase her oxygen. She also has a history of lower back pain with left-sided radiculopathy. Over this time she feels like this has worsened and is having some numbness on the front of her left thigh. She also is having a gout flare in her left foot. All of these symptoms seem to started over the past couple days. She does have a history of gout in her left foot in the past. She has also had gout in her right foot. She does have a prescription for indomethacin has been taking it for the past couple days without any improvement. Related Data Home Medications Medication Instructions Recorded Confirmed ascorbic acid (vitamin C) 1,000 mg PO QDAY #0 tab 04/08/16 10/10/20 aspirin 81 mg PO QDAY #30 tab 04/08/16 10/10/20 melatonin 3 mg PO HS #0 tab 04/08/16 10/10/20 multivitamin [Multiple Vitamins] 1 tab PO QDAY #0 tab 04/08/16 10/10/20 naproxen 440 mg PO BID 03/27/20 10/10/20 Previous Rx's Medication Instructions Recorded spironolactone 25 mg tablet 50 mg PO BID #120 tab 05/13/20 albuterol sulfate 90 mcg/actuation 2 puff INHALATION Q4-6H PRN #8.5 05/16/20 aerosol inhaler gram indomethacin 25 mg capsule See Rx Instructions PO .COMPLEX 05/28/20 PRN #20 cap trazodone 100 mg tablet 100 mg PO BEDTIME #90 tab 10/10/20 furosemide 40 mg tablet 40 mg PO DAILY #90 tab 11/08/20 pramipexole 0.5 mg tablet 0.5 - 2 mg PO BEDTIME PRN #120 tab 11/11/20 losartan 25 mg tablet 50 mg PO BID #240 tab 12/06/20 hydrocodone-acetaminophen 1 tab PO Q4-6H PRN #10 tab 01/14/21 prednisone 20 mg PO DAILY #25 tab 01/14/21 Allergies Allergy/AdvReac Type Severity Reaction Status Date / Time codeine [CODEINE] Allergy Intermediate GASTRIC Verified 10/10/20 15:32 UPSET Sulfa (Sulfonamide Allergy Intermediate RASH/HIVES Verified 10/10/20 15:32 Antibiotics) [SULFA (SULFONAMIDE ANTIBIOTICS)] Review of Systems Constitutional Constitutional: Denies chills, Denies fatigue, Denies fever(s) and Denies headache(s) Eyes Eyes: Denies change in vision ENT Ears, Nose, Mouth, and Throat: Denies headache(s) and Denies sore throat Cardiovascular Cardiovascular: Denies chest pain and Reports dyspnea Respiratory Respiratory: Reports dyspnea Gastrointestinal Gastrointestinal: Denies abdominal pain, Denies nausea and Denies vomiting Genitourinary Genitourinary: Denies dysuria Genitourinary: Denies dysuria Musculoskeletal Comments: Left foot pain Integumentary/Breasts Comments: Redness to left foot Neurologic Neurologic: Denies behavioral changes and Denies headache(s) Comments: Left leg radiculopathy Psychiatric Psychiatric: Denies anxiety and Denies behavioral changes Endocrine Endocrine: Denies fatigue Hematologic/Lymphatic On Anticoagulants: No Allergic/Immunologic Allergic/Immunologic: Denies urticaria Patient History Medical History Allergies Anemia (1993) Ankle pain (~2019) Arthritis (1999) Asthma (~1970) BMI 60.0-69.9, adult Depression Diabetes type 2, controlled Essential hypertension (04/08/16) Foot pain (2010) Gout (1998) Hayfever Heart murmur (1999) Insomnia (04/08/16) Knee pain (2009) Morbid obesity Obesity hypoventilation syndrome Other osteoarthritis involving multiple joints (05/26/17) Ovarian cyst (1975) Oxygen dependent (~2019) RLS (restless legs syndrome) (2013) Sleep apnea (2012) Urinary incontinence (2013) Surgical History (Updated 11/26/20 @ 14:09 by Cris Silveira) Anesthesia complication LAP-BAND surgery status (2012) Status post arthroscopy (2000) Status post cholecystectomy (1998) Status post hysterectomy (1995) Status post right foot surgery (2009) Family History (Updated 11/26/20 @ 14:13 by Cris Silveira) Father Diabetes mellitus Heart disease Hypertension High cholesterol Renal failure Grandfather Heart disease Heart attack Grandmother Cancer Breast cancer Mother Diabetes mellitus Heart disease Heart failure Hypertension Grandfather Heart disease Dementia Grandmother Cancer Breast cancer Colon cancer Ovarian cancer Sister Age: 58 Fibromyalgia Bone cancer Brother Hyperlipidemia Sister Hypertension Social History household members: none Smoking Status: Never smoker alcohol intake: never Smoking Status: Never smoker Substance Use Type: does not use Exam Initial Vital Signs Initial Vital Signs: Vital Signs Temperature 97.2 F L 01/14/21 06:43 Pulse Rate 84 01/14/21 06:43 Respiratory Rate 25 H 01/14/21 06:43 Blood Pressure 221/103 H 01/14/21 06:43 Pulse Oximetry 95 01/14/21 06:43 Const General: cooperative and comfortable Limitations: mental status not altered HENMT Head: normal to inspection and normocephalic Eyes General: appearance normal, both eyes and all related structures Chest Chest: No tenderness Resp Effort & Inspection: not tachypneic Auscultation: clear to auscultation bilaterally Other: On oxygen Cardio Rate: regular rate Rhythm: regular rhythm GI Inspection: non-distended Palpation: soft Skin Other: Redness on the top of the left foot at the MTP joints. Neuro General: patient alert, patient awake and patient oriented x3 Cognition: normal cognition Speech: speech normal Sensory Exam: sensory deficits noted (Decreased sensation to the anterior aspect of the left thigh) Extrem General: normal to inspection, capillary refill normal and edema Psych Appearance: grossly normal and well kempt Scores GCS [place] coma scale eye opening: Spontaneous [place] coma scale verbal response: Orientated [place] coma scale motor response: Obey commands [place] coma scale total score: 15 Course Orders Ordered: ED Orders 01/14/21 06:43 XR chest 1V Stat Blood Culture Stat COVID19 - ADMIT ([employer] swab/PCR) Stat 01/14/21 06:56 EKG-12 Lead Routine 01/14/21 07:10 Arterial Blood Gas Stat 01/14/21 08:15 Complete Blood Count AUTO DIFF Stat Comprehensive Metabolic Panel Stat Erythrocyte Sedimentation Rate Stat Lactate (Lactic Acid) Stat Magnesium Stat NT-proBNP (BNP-Adult 18+) Stat Prothrombin Time INR Stat Troponin & CK Cardiac Panel Stat Uric Acid Stat Discontinued Medications Hydromorphone HCl (Hydromorphone 1 Mg Inj) 1 mg IV NOW ONE Stop: 01/14/21 07:56 Last Admin: 01/14/21 08:10 Dose: 1 mg Documented by: BTONER Vital Signs Vital signs: Vital Signs - 8 hr 01/14/21 06:43 01/14/21 07:00 01/14/21 07:15 Temperature 97.2 F L Pulse Rate 84 73 72 Respiratory Rate 25 H 23 Blood Pressure 221/103 H 175/77 H Pulse Oximetry 95 97 99 01/14/21 07:30 01/14/21 08:00 01/14/21 08:30 Temperature Pulse Rate 70 73 65 Respiratory Rate 18 Blood Pressure Pulse Oximetry 98 98 97 01/14/21 09:00 Temperature Pulse Rate 60 Respiratory Rate 12 Blood Pressure Pulse Oximetry 94 Medical Decision Making Medical Records Medical records reviewed: Yes I reviewed the patient's medical records. Lab Data Lab results reviewed: Yes I reviewed the patient's lab results. Result diagrams: 01/14/21 08:15 01/14/21 08:15 Labs: Lab Results 01/14/21 01/14/21 01/14/21 Range/Units 07:10 08:15 08:15 WBC 8.0 (4.5-11.0) X10^3/uL RBC 4.61 (4.0-5.2) X10^6/uL Hgb 13.4 (12.0-16.0) g/dL Hct 40.5 (36-46) % MCV 87.8 (80-100) fL MCH 29.1 (26-34) PG MCHC 33.1 (30-36) % RDW 14.7 (11.6-14.8) % Plt Count 137 L (150-400) X10^3/uL Neut % (Auto) 83.0 H (50-75) % Lymph % (Auto) 10.1 L (25-40) % [place] % (Auto) 4.0 (3-14) % Eos % (Auto) 2.6 (2-4) % Baso % (Auto) 0.3 (0-2) % Neut # (Auto) 6600 (3997-3522) /uL Lymph # (Auto) 800 L (7562-5340) /uL [place]ock # (Auto) 300 (0-900) /uL Eos # (Auto) 200 (0-450) /uL Baso # (Auto) 0 (0-100) /uL ESR 17 (0-20) MM/HR PT 12.8 H (10.1-12.7) SECONDS INR 1.1 (0.9-1.3) ABG pH 7.43 (7.35-7.45) ABG pCO2 49.7 H (35-45) mmHg ABG pO2 99 (80-100) mmHg ABG HCO3 33 H (22-26) mmol/L ABG Total CO2 34 H (21-31) mmol/L ABG O2 Saturation 98 (95-100) % ABG Base Excess 8.0 H (-2-2) mmol/L FiO2 32 Sodium (137-145) mmol/L Potassium (3.4-5.1) mmol/L Chloride (98-107) mmol/L Carbon Dioxide (22-32) mmol/L BUN (7-17) mg/dL Creatinine (0.52-1.04) mg/dL Estimated GFR (>60) mL/min BUN/Creatinine Ratio (6-22) Glucose (80-110) mg/dL Lactate (0.7-2.1) mmol/L Uric Acid (2.5-6.2) mg/dL Calcium (8.4-10.2) mg/dL Magnesium (1.6-2.3) mg/dL Total Bilirubin (0.2-1.3) mg/dL AST (14-36) IU/L ALT (<35) IU/L Alkaline Phosphatase (38-126) U/L Total Creatine Kinase (30-135) U/L CK-MB (CK-2) CK-MB (CK-2) Rel Index Troponin I (0.01-0.034) ng/mL NT-Pro-B Natriuret Pep (<125) pg/mL Total Protein (6.3-8.2) g/dL Albumin (3.5-5.0) g/dL Globulin (1.7-4.1) g/dL Albumin/Globulin Ratio (1.0-2.8) 01/14/21 01/14/21 Range/Units 08:15 08:15 WBC (4.5-11.0) X10^3/uL RBC (4.0-5.2) X10^6/uL Hgb (12.0-16.0) g/dL Hct (36-46) % MCV (80-100) fL MCH (26-34) PG MCHC (30-36) % RDW (11.6-14.8) % Plt Count (150-400) X10^3/uL Neut % (Auto) (50-75) % Lymph % (Auto) (25-40) % [place]ock % (Auto) (3-14) % Eos % (Auto) (2-4) % Baso % (Auto) (0-2) % Neut # (Auto) (4595-5934) /uL Lymph # (Auto) (9871-8650) /uL [place] # (Auto) (0-900) /uL Eos # (Auto) (0-450) /uL Baso # (Auto) (0-100) /uL ESR (0-20) MM/HR PT (10.1-12.7) SECONDS INR (0.9-1.3) ABG pH (7.35-7.45) ABG pCO2 (35-45) mmHg ABG pO2 (80-100) mmHg ABG HCO3 (22-26) mmol/L ABG Total CO2 (21-31) mmol/L ABG O2 Saturation (95-100) % ABG Base Excess (-2-2) mmol/L FiO2 Sodium 139 (137-145) mmol/L Potassium 4.4 (3.4-5.1) mmol/L Chloride 100 (98-107) mmol/L Carbon Dioxide 35 H (22-32) mmol/L BUN 26 H (7-17) mg/dL Creatinine 0.82 (0.52-1.04) mg/dL Estimated GFR > 60.0 (>60) mL/min BUN/Creatinine Ratio 31.7 H (6-22) Glucose 148 H (80-110) mg/dL Lactate 1.0 (0.7-2.1) mmol/L Uric Acid 7.6 H (2.5-6.2) mg/dL Calcium 8.9 (8.4-10.2) mg/dL Magnesium 2.0 (1.6-2.3) mg/dL Total Bilirubin 0.4 (0.2-1.3) mg/dL AST 17 (14-36) IU/L ALT 14 (<35) IU/L Alkaline Phosphatase 86 (38-126) U/L Total Creatine Kinase 35 (30-135) U/L CK-MB (CK-2) TNP CK-MB (CK-2) Rel Index TNP Troponin I < 0.012 (0.01-0.034) ng/mL NT-Pro-B Natriuret Pep 388 H (<125) pg/mL Total Protein 6.8 (6.3-8.2) g/dL Albumin 3.6 (3.5-5.0) g/dL Globulin 3.2 (1.7-4.1) g/dL Albumin/Globulin Ratio 1.1 (1.0-2.8) ECG Data Attestation: I personally reviewed and interpreted this ECG as follows: Prior ECG tracings: not available for review Interpretation: Sinus rhythm Ventricular rate is 78 Normal axis Normal QRS Normal QTC Occasional PACs MDM Narrative Medical decision making narrative: Patient is at her baseline respiratory status. Her BNP is actually improved. She is on her 3 L of oxygen by nasal cannula. She is actually not here for any respiratory issues. She is here because of the gout in her left foot and her physical exam and labs are consistent with gout. I have lower suspicion for septic joint nor fracture. I feel we can hold on radiologic studies. She is also here for left-sided lower back pain/radiculopathy which I suspect is related to the change in mechanics of how she is walking because the pain in her left foot and also potentially because of swelling due to fluid retention. She is not in overt heart failure. She is on Lasix. We did discuss that she could increase her Lasix by 1/2 tablet a day for the next couple days if she feels like she needs to. Will put her on a steroid taper which hopefully will help the gout and also her lower back pain. She will contact her primary doctor for follow-up. She expressed understanding and agreement. Discharge Plan Departure Patient Disposition: Home Clinical Impression: Gout, Low back pain potentially associated with radiculopathy Instructions: DI for Low Back Pain, DI for Gout, Activity May Be Better Than Rest for Low Back Pain Recovery, Edema Activity Restrictions/Additional Instructions: Continue all of your medications as directed. If you need to increase your Lasix/furosemide by 1/2 tablet a day for the next couple days to help with the swelling this with is okay. If you find that you need to do this more often or for longer period of time you need to contact your primary provider. We are going to put you on steroids for the next several weeks. This will most likely help your gout flare and also your lower back pain. Please take them as directed. You will take this instead of your indomethacin. The pain medication is for breakthrough pain. Recommend you use this sparingly. Contact your primary provider for a follow-up. Prescriptions: New hydrocodone-acetaminophen 5-325 mg tablet 1 tab PO Q4-6H PRN (Reason: pain) Qty: 10 RF: 0 prednisone 20 mg tablet 20 mg PO DAILY Qty: 25 RF: 0 No Action aspirin 81 MG tablet,delayed release (DR/EC) 81 mg PO QDAY Qty: 30 RF: 0 melatonin 3 MG tablet 3 mg PO HS Qty: 0 RF: 0 ascorbic acid (vitamin C) 500 MG tablet 1,000 mg PO QDAY Qty: 0 RF: 0 multivitamin [Multiple Vitamins] 1 EACH tablet 1 tab PO QDAY Qty: 0 RF: 0 albuterol sulfate 90 mcg/actuation HFA aerosol inhaler 2 puff INHALATION Q4-6H PRN (Reason: wheezing) Qty: 8.5 RF: 3 indomethacin 25 mg capsule See Rx Instructions PO .COMPLEX PRN (Reason: pain) Qty: 20 RF: 1 furosemide 40 mg tablet 40 mg PO DAILY Qty: 90 RF: 1 pramipexole 0.5 mg tablet 0.5 - 2 mg PO BEDTIME PRN (Reason: restless leg(s)) Qty: 120 RF: 3 losartan 25 mg tablet 50 mg PO BID Qty: 240 RF: 0 spironolactone 25 mg tablet 50 mg PO BID Qty: 120 RF: 5 trazodone 100 mg tablet 100 mg PO BEDTIME Qty: 90 RF: 3 naproxen 500 mg tablet 440 mg PO BID RF: 0 Referrals: Tim Zuniga MD [Primary Care Provider] -
[2021-01-14] MEDS: HYDROMORPHONE 1 MG INJ IV (08:10)
[2021-01-14 08:28] LABS: Add Manual Diff / Slide Review NO; Basophils Absolute Auto 0 /uL (0-100); Basophils Percent Auto 0.3 % (0-2); Eosinophils Absolute Auto 200 /uL (0-450); Eosinophils Percent Auto 2.6 % (2-4); Hematocrit 40.5 % (36-46); Hemoglobin 13.4 g/dL (12.0-16.0); Lymphocytes Absolute Auto 800 /uL (1100-4500); Lymphocytes Percent Auto 10.1 % (25-40); Mean Corpuscular HGB Conc 33.1 % (30-36); Mean Corpuscular Hemoglobin 29.1 PG (26-34); Mean Corpuscular Volume 87.8 fL (80-100); Monocytes Absolute Auto 300 /uL (0-900); Neutrophils Absolute Auto 6600 /uL (1500-7000); Platelet Count 137 X10^3/uL (150-400); Red Blood Cell Count 4.61 X10^6/uL (4.0-5.2); Red Cell Distribution Width 14.7 % (11.6-14.8)
[2021-01-14 08:32] LABS: INR 1.1 (0.9-1.3); Prothrombin Time 12.8 SECONDS (10.1-12.7)
[2021-01-14 08:38] LABS: Alanine Aminotransferase 14 IU/L (<35); Albumin 3.6 g/dL (3.5-5.0); Albumin Globulin Ratio 1.1 (1.0-2.8); Alkaline Phosphatase 86 U/L (38-126); Aspartate Aminotransferase 17 IU/L (14-36); BUN Creatinine Ratio 31.7 (6-22); Bilirubin Total 0.4 mg/dL (0.2-1.3); Blood Urea Nitrogen 26 mg/dL (7-17); Calcium 8.9 mg/dL (8.4-10.2); Carbon Dioxide 35 mmol/L (22-32); Chloride 100 mmol/L (98-107); Creatine Kinase 35 U/L (30-135); Estimated Glomerular Filt Rate > 60.0 mL/min (>60); Globulin 3.2 g/dL (1.7-4.1); Glucose 148 mg/dL (80-110); HEMOLYSIS < 15 (0-50); Potassium 4.4 mmol/L (3.4-5.1); Sodium 139 mmol/L (137-145); Total Protein 6.8 g/dL (6.3-8.2); Uric Acid 7.6 mg/dL (2.5-6.2)
[2021-01-14 08:46] LABS: Erythrocyte Sedimentation Rate 17 MM/HR (0-20)
[2021-01-14 08:49] LABS: NT-proBNP (BNP-Adult 18+) 388 pg/mL (<125); Troponin I < 0.012 ng/mL (0.01-0.034)
--- NOTE | 2021-01-14 09:20 | PC.NURSE ---
Pt is c/o L foot gout pain and L radiating sciatica pain. Pt is doing well while resting at this time
== END 2021-01-14 09:27 | disposition home or self-care (01) ==
PROVIDERS: Emergency Medicine; Emergency Provider Emergency Medicine; Family Provider Family Medicine; PCP Internal Medicine
DX: M10.9 Gout, unspecified (principal); M54.5 Low back pain; R06.00 Dyspnea, unspecified
CPT/HCPCS: 36415; 36600; 71045; 80053; 82550; 82805; 83605; 83735; 83880; 84484; 84550; 85025; 85610; 85651; 87040; 93005; 96374; 99284; 99285; J1170

== ENCOUNTER 2021-04-23 06:22 | Inpatient (IN) | payer MEDICARE, OTHER, SELFPAY ==
[2020-03-27 20:49] VITALS: BMI 62.1
[2021-04-23] VITALS (68 sets, daily range): BP systolic 131–193; BP diastolic 62–136; PULSE 68–148; RESP 18–46; TEMP 36.2; O2SAT 93–99; BMI 63.8
--- NOTE | 2021-04-23 06:24 | ED_ITS ---
HPI - SOB/Dyspnea <Bon Zamora, DO - Last Filed: 04/24/21 01:35> General Chief Complaint: Shortness of Breath/Dyspnea Stated Complaint: difficulty breathing Time Seen by Provider: 04/23/21 06:24 History of Present Illness HPI Narrative: 66-year-old female nonsmoker with history of type 2 diabetes, hypertension, morbid obesity, oxygen dependent with CHF on 3 L presents with friend and chief complaint of significant worsening of with shortness of breath since last evening. She states that she had been laying flat for quite some time and is concerned that that may have set her off. She also complains of increased swelling in her legs and that minimal exertion makes her profoundly short of breath. She denies any change in her medications or diet. She has had no fever or chills. She denies having the COVID vaccination. She has had no nausea or vomiting. She denies any chest pain. Related Data Home Medications Medication Instructions Recorded Confirmed ascorbic acid (vitamin C) 500 mg 1,000 mg PO QDAY #0 tab 04/08/16 04/24/21 tablet aspirin 81 mg tablet,delayed 81 mg PO QDAY #30 tab 04/08/16 04/24/21 release melatonin 3 mg tablet 5 mg PO HS #0 tab 04/08/16 04/24/21 multivitamin (Multiple Vitamins) 1 tab PO QDAY #0 tab 04/08/16 04/24/21 albuterol sulfate 90 mcg/actuation 2 puff INHALATION Q4H PRN 04/24/21 04/24/21 aerosol inhaler naproxen sodium 220 mg tablet 440 mg PO BID 04/24/21 04/24/21 (Aleve) Previous Rx's Medication Instructions Recorded furosemide 40 mg tablet 40 mg PO DAILY #90 tab 11/08/20 losartan 25 mg tablet 50 mg PO BID #120 tab 04/11/21 pramipexole 0.5 mg tablet 0.5 - 2 mg PO BEDTIME PRN #120 tab 04/11/21 spironolactone 25 mg tablet 50 mg PO BID #120 tab 04/11/21 trazodone 100 mg tablet 100 mg PO BEDTIME #30 tab 04/11/21 Allergies Allergy/AdvReac Type Severity Reaction Status Date / Time codeine [CODEINE] Allergy Intermediate GASTRIC Verified 10/10/20 15:32 UPSET Sulfa (Sulfonamide Allergy Intermediate RASH/HIVES Verified 10/10/20 15:32 Antibiotics) [SULFA (SULFONAMIDE ANTIBIOTICS)] Review of Systems <Bon Zamora DO - Last Filed: 04/24/21 01:35> Review of Systems Narrative: GENERAL: Denies chills, fatigue, malaise, fever, sweats. HEENT: Denies sinus pain, ear pain, sore throat, difficulty swallowing, dizziness. RESPIRATORY: See HPI CARDIOVASCULAR: See HPI GASTROINTESTINAL: Denies nausea, vomiting, abdominal pain, diarrhea, constipation, melena. : Denies dysuria, frequency, incontinence, hematuria, urinary retention. MUSCULOSKELETAL: denies weakness, joint pain, or bony pain SKIN: Denies rash, skin lesions, or other NEUROLOGIC: Denies weakness, headache, numbness, change in speech, confusion, seizures, incoordination. PSYCHIATRIC: No concerning psychosocial issues. 12 point review of systems is negative except for those stated above Patient History <Bon Zamora DO - Last Filed: 04/24/21 01:35> Medical History Allergies Anemia (1993) Ankle pain (~2019) Arthritis (1999) Asthma (~1970) BMI 60.0-69.9, adult Depression Diabetes type 2, controlled Essential hypertension (04/08/16) Foot pain (2010) Gout (1998) Hayfever Heart murmur (1999) Insomnia (04/08/16) Knee pain (2009) Morbid obesity Obesity hypoventilation syndrome Other osteoarthritis involving multiple joints (05/26/17) Ovarian cyst (1975) Oxygen dependent (~2019) RLS (restless legs syndrome) (2012) Sleep apnea (2011) Urinary incontinence (2013) Surgical History Anesthesia complication LAP-BAND surgery status (2012) Status post arthroscopy (2000) Status post cholecystectomy (1998) Status post hysterectomy (1995) Status post right foot surgery (2009) Family History Father Diabetes mellitus Heart disease Hypertension High cholesterol Renal failure Grandfather Heart disease Heart attack Grandmother Cancer Breast cancer Mother Diabetes mellitus Heart disease Heart failure Hypertension Grandfather Heart disease Dementia Grandmother Cancer Breast cancer Colon cancer Ovarian cancer Sister Age: 59 Fibromyalgia Bone cancer Brother Hyperlipidemia Sister Hypertension Social History household members: none Smoking Status: Never smoker alcohol intake: former Smoking Status: Never smoker Substance Use Type: does not use Exam <Bon Zamora DO - Last Filed: 04/24/21 01:35> Narrative Exam Narrative: GENERAL: [66] year old patient appears stated age. Well- developed patient, in mild distress. Increased work of breathing with minimal exertion, conversational dyspnea HEAD: Atraumatic. Normocephalic. EYES: Pupils equal round and reactive. Extraocular motions intact. No scleral icterus. No injection or drainage. ENT: Nose without bleeding, purulent drainage. Throat without erythema, tonsillar hypertrophy or exudate. Airway patent. NECK: Trachea midline. Non tender CARDIOVASCULAR: Tachycardic but regular rhythm without murmurs, gallops, or rubs. RESPIRATORY: Increased work of breathing, conversational dyspnea, prolonged expiratory phase with decreased breath sounds throughout GASTROINTESTINAL: Abdomen soft, non-tender, nondistended. EXTREMITIES: 2+ pitting edema bilateral lower extremities BACK: Nontender without deformity or crepitance. No flank tenderness. NEURO: AOx3. SKIN: No rash or erythema of visible areas Initial Vital Signs Initial Vital Signs: Vital Signs Temperature 97.2 F L 04/23/21 06:34 Pulse Rate 140 H 04/23/21 06:34 Respiratory Rate 35 H 04/23/21 06:34 Blood Pressure 183/108 H 04/23/21 06:34 Pulse Oximetry 93 04/23/21 06:34 <Sundar Cruz DO - Last Filed: 04/23/21 08:46> Initial Vital Signs Initial Vital Signs: Vital Signs Temperature 97.2 F L 04/23/21 06:34 Pulse Rate 140 H 04/23/21 06:34 Respiratory Rate 35 H 04/23/21 06:34 Blood Pressure 183/108 H 04/23/21 06:34 Pulse Oximetry 93 04/23/21 06:34 Course <Bon Zamora DO - Last Filed: 04/24/21 01:35> Orders Ordered: ED Orders 04/24/21 05:00 Complete Blood Count AUTO DIFF Routine Comprehensive Metabolic Panel Routine NT-proBNP (BNP-Adult 18+) Routine Troponin I Routine Acetaminophen (Acetaminophen 325 Mg Tablet) 650 mg PO Q6HR PRN PRN Reason: Fever/Mild Pain (1-3) Last Admin: 04/24/21 00:50 Dose: 650 mg Documented by: Admin: 04/23/21 18:07 Dose: 650 mg Documented by: Admin: 04/23/21 10:37 Dose: 650 mg Documented by: JEF Apixaban (Apixaban 5 Mg Tablet) 5 mg PO BID [facility] Last Admin: 04/23/21 20:43 Dose: 5 mg Documented by: Admin: 04/23/21 11:32 Dose: 5 mg Documented by: JEF Bisacodyl (Bisacodyl 5 Mg Tablet) 10 mg PO DAILY PRN PRN Reason: Constipation Furosemide (Furosemide 40 Mg/4 Ml Vial) 40 mg IV TID [facility] Last Admin: 04/23/21 20:43 Dose: 40 mg Documented by: Admin: 04/23/21 14:39 Dose: 40 mg Documented by: JEF Diltiazem HCl 125 mg/ Dextrose 125 mls @ 5 mls/hr IV TITRATE [facility]; Protocol Last Titration: 04/23/21 21:44 Dose: 0 mg/hr, 0 mls/hr Documented by: Titration: 04/23/21 19:00 Dose: 5 mg/hr, 5 mls/hr Documented by: Titration: 04/23/21 18:07 Dose: 10 mg/hr, 10 mls/hr Documented by: Admin: 04/23/21 14:55 Dose: 15 mg/hr, 15 mls/hr Documented by: JEF Losartan Potassium (Losartan 50 Mg Tablet) 50 mg PO BID [facility] Last Admin: 04/23/21 20:43 Dose: 50 mg Documented by: EDWARD Metoprolol Succinate (Metoprolol Er 50 Mg Tablet) 50 mg PO BID [facility] Last Admin: 04/23/21 20:44 Dose: 50 mg Documented by: EDWARD Naloxone HCl (Naloxone 0.4 Mg/Ml Vial) 0.2 mg IV Q2MIN PRN PRN Reason: Opiate Reversal Potassium Chloride (Potassium Chloride 20 Meq Tab) 20 meq PO BIDWM [facility] Last Admin: 04/23/21 16:15 Dose: 20 meq Documented by: JEF Pramipexole Dihydrochloride (Pramipexole 1 Mg Tablet) 1 mg PO BEDTIME PRN PRN Reason: restless leg(s) Last Admin: 04/23/21 20:48 Dose: 1 mg Documented by: EDWARD Spironolactone (Spironolactone 25 Mg Tablet) 50 mg PO DAILY [facility] Trazodone HCl (Trazodone 100 Mg Tablet) 100 mg PO BEDTIME PRN PRN Reason: sll Discontinued Medications Acetaminophen (Acetaminophen 325 Mg Tablet) 650 mg PO Q6HR PRN PRN Reason: Fever/Mild Pain (1-3) Diltiazem HCl (Diltiazem 5 Mg/Ml Sdv) 10 mg IV NOW ONE Stop: 04/23/21 07:51 Last Admin: 04/23/21 08:20 Dose: 10 mg Documented by: MARIE Furosemide (Furosemide 40 Mg/4 Ml Vial) 40 mg IV NOW ONE Stop: 04/23/21 06:31 Last Admin: 04/23/21 06:42 Dose: 40 mg Documented by: USMAN Furosemide (Furosemide 40 Mg/4 Ml Vial) 40 mg IV Q12HR [facility] Diltiazem HCl 125 mg/ Sodium (Chloride) 125 mls @ 5 mls/hr IV TITRATE [facility]; Protocol Last Titration: 04/23/21 14:55 Dose: 0 mg/hr, 0 mls/hr Documented by: Titration: 04/23/21 09:20 Dose: 15 mg/hr, 15 mls/hr Documented by: Titration: 04/23/21 08:40 Dose: 10 mg/hr, 10 mls/hr Documented by: Admin: 04/23/21 08:20 Dose: 5 mg/hr, 5 mls/hr Documented by: MARIE Losartan Potassium (Losartan 25 Mg Tablet) 50 mg PO BID [facility] Last Admin: 04/23/21 11:33 Dose: 50 mg Documented by: JEF Metoprolol Succinate (Metoprolol Er 50 Mg Tablet) 50 mg PO NOW ONE Stop: 04/23/21 10:31 Last Admin: 04/23/21 11:33 Dose: 50 mg Documented by: JEF Pramipexole Dihydrochloride (Pramipexole 0.25 Mg Tablet) 1 mg PO BEDTIME PRN PRN Reason: restless leg(s) Prednisone (Prednisone 20 Mg Tablet) 20 mg PO DAILY [facility] Last Admin: 04/23/21 10:11 Dose: 20 mg Documented by: JEF Vital Signs Vital signs: Vital Signs - 8 hr 04/23/21 06:34 04/23/21 06:59 04/23/21 07:00 Temperature 97.2 F L Pulse Rate 140 H 125 H 126 H Respiratory Rate 35 H 18 25 H Blood Pressure 183/108 H Pulse Oximetry 93 96 96 04/23/21 07:12 04/23/21 07:30 04/23/21 07:31 Temperature Pulse Rate 124 H 138 H Respiratory Rate 22 25 H 20 Blood Pressure 193/136 H 164/66 H Pulse Oximetry 95 95 96 04/23/21 07:46 04/23/21 08:00 04/23/21 08:01 Temperature Pulse Rate 148 H 130 H 130 H Respiratory Rate 19 32 H Blood Pressure 164/66 H 167/76 H Pulse Oximetry 95 95 04/23/21 08:22 04/23/21 08:27 04/23/21 08:30 Temperature Pulse Rate 135 H 128 H 86 Respiratory Rate 21 23 27 H Blood Pressure 154/83 H 144/62 H Pulse Oximetry 94 95 95 04/23/21 08:31 Temperature Pulse Rate 84 Respiratory Rate 21 Blood Pressure 146/78 H Pulse Oximetry 94 <Sundar Cruz DO - Last Filed: 04/23/21 08:46> Orders Ordered: ED Orders 04/24/21 05:00 Complete Blood Count AUTO DIFF Routine Comprehensive Metabolic Panel Routine NT-proBNP (BNP-Adult 18+) Routine Troponin I Routine Acetaminophen (Acetaminophen 325 Mg Tablet) 650 mg PO Q6HR PRN PRN Reason: Fever/Mild Pain (1-3) Last Admin: 04/24/21 00:50 Dose: 650 mg Documented by: Admin: 04/23/21 18:07 Dose: 650 mg Documented by: Admin: 04/23/21 10:37 Dose: 650 mg Documented by: JEF Apixaban (Apixaban 5 Mg Tablet) 5 mg PO BID [facility] Last Admin: 04/23/21 20:43 Dose: 5 mg Documented by: Admin: 04/23/21 11:32 Dose: 5 mg Documented by: KBRYERS Bisacodyl (Bisacodyl 5 Mg Tablet) 10 mg PO DAILY PRN PRN Reason: Constipation Furosemide (Furosemide 40 Mg/4 Ml Vial) 40 mg IV TID [facility] Last Admin: 04/23/21 20:43 Dose: 40 mg Documented by: Admin: 04/23/21 14:39 Dose: 40 mg Documented by: JEF Diltiazem HCl 125 mg/ Dextrose 125 mls @ 5 mls/hr IV TITRATE [facility]; Protocol Last Titration: 04/23/21 21:44 Dose: 0 mg/hr, 0 mls/hr Documented by: Titration: 04/23/21 19:00 Dose: 5 mg/hr, 5 mls/hr Documented by: Titration: 04/23/21 18:07 Dose: 10 mg/hr, 10 mls/hr Documented by: Admin: 04/23/21 14:55 Dose: 15 mg/hr, 15 mls/hr Documented by: JEF Losartan Potassium (Losartan 50 Mg Tablet) 50 mg PO BID [facility] Last Admin: 04/23/21 20:43 Dose: 50 mg Documented by: EDWARD Metoprolol Succinate (Metoprolol Er 50 Mg Tablet) 50 mg PO BID [facility] Last Admin: 04/23/21 20:44 Dose: 50 mg Documented by: EDWARD Naloxone HCl (Naloxone 0.4 Mg/Ml Vial) 0.2 mg IV Q2MIN PRN PRN Reason: Opiate Reversal Potassium Chloride (Potassium Chloride 20 Meq Tab) 20 meq PO BIDWM [facility] Last Admin: 04/23/21 16:15 Dose: 20 meq Documented by: JEF Pramipexole Dihydrochloride (Pramipexole 1 Mg Tablet) 1 mg PO BEDTIME PRN PRN Reason: restless leg(s) Last Admin: 04/23/21 20:48 Dose: 1 mg Documented by: EDWARD Spironolactone (Spironolactone 25 Mg Tablet) 50 mg PO DAILY [facility] Trazodone HCl (Trazodone 100 Mg Tablet) 100 mg PO BEDTIME PRN PRN Reason: sll Discontinued Medications Acetaminophen (Acetaminophen 325 Mg Tablet) 650 mg PO Q6HR PRN PRN Reason: Fever/Mild Pain (1-3) Diltiazem HCl (Diltiazem 5 Mg/Ml Sdv) 10 mg IV NOW ONE Stop: 04/23/21 07:51 Last Admin: 04/23/21 08:20 Dose: 10 mg Documented by: MARIE Furosemide (Furosemide 40 Mg/4 Ml Vial) 40 mg IV NOW ONE Stop: 04/23/21 06:31 Last Admin: 04/23/21 06:42 Dose: 40 mg Documented by: USMAN Furosemide (Furosemide 40 Mg/4 Ml Vial) 40 mg IV Q12HR [facility] Diltiazem HCl 125 mg/ Sodium (Chloride) 125 mls @ 5 mls/hr IV TITRATE [facility]; Protocol Last Titration: 04/23/21 14:55 Dose: 0 mg/hr, 0 mls/hr Documented by: Titration: 04/23/21 09:20 Dose: 15 mg/hr, 15 mls/hr Documented by: Titration: 04/23/21 08:40 Dose: 10 mg/hr, 10 mls/hr Documented by: Admin: 04/23/21 08:20 Dose: 5 mg/hr, 5 mls/hr Documented by: MARIE Losartan Potassium (Losartan 25 Mg Tablet) 50 mg PO BID [facility] Last Admin: 04/23/21 11:33 Dose: 50 mg Documented by: JEF Metoprolol Succinate (Metoprolol Er 50 Mg Tablet) 50 mg PO NOW ONE Stop: 04/23/21 10:31 Last Admin: 04/23/21 11:33 Dose: 50 mg Documented by: JEF Pramipexole Dihydrochloride (Pramipexole 0.25 Mg Tablet) 1 mg PO BEDTIME PRN PRN Reason: restless leg(s) Prednisone (Prednisone 20 Mg Tablet) 20 mg PO DAILY [facility] Last Admin: 04/23/21 10:11 Dose: 20 mg Documented by: JEF Vital Signs Vital signs: Vital Signs - 8 hr 04/23/21 06:34 04/23/21 06:59 04/23/21 07:00 Temperature 97.2 F L Pulse Rate 140 H 125 H 126 H Respiratory Rate 35 H 18 25 H Blood Pressure 183/108 H Pulse Oximetry 93 96 96 04/23/21 07:12 04/23/21 07:30 04/23/21 07:31 Temperature Pulse Rate 124 H 138 H Respiratory Rate 22 25 H 20 Blood Pressure 193/136 H 164/66 H Pulse Oximetry 95 95 96 04/23/21 07:46 04/23/21 08:00 04/23/21 08:01 Temperature Pulse Rate 148 H 130 H 130 H Respiratory Rate 19 32 H Blood Pressure 164/66 H 167/76 H Pulse Oximetry 95 95 04/23/21 08:22 04/23/21 08:27 04/23/21 08:30 Temperature Pulse Rate 135 H 128 H 86 Respiratory Rate 21 23 27 H Blood Pressure 154/83 H 144/62 H Pulse Oximetry 94 95 95 04/23/21 08:31 Temperature Pulse Rate 84 Respiratory Rate 21 Blood Pressure 146/78 H Pulse Oximetry 94 MDM - SOB/Dyspnea <Bon Zamora, - Last Filed: 04/24/21 01:35> Lab Data Result diagrams: 04/23/21 06:40 04/23/21 06:40 Labs: Lab Results 04/23/21 04/23/21 04/23/21 Range/Units 06:40 06:40 06:40 WBC 8.2 (4.5-11.0) X10^3/uL RBC 4.16 (4.0-5.2) X10^6/uL Hgb 11.4 L (12.0-16.0) g/dL Hct 35.7 L (36-46) % MCV 85.8 (80-100) fL MCH 27.3 (26-34) PG MCHC 31.9 (30-36) % RDW 15.8 H (11.6-14.8) % Plt Count 198 (150-400) X10^3/uL Neut % (Auto) 71.2 (50-75) % Lymph % (Auto) 18.4 L (25-40) % Colbert % (Auto) 4.9 (3-14) % Eos % (Auto) 4.8 H (2-4) % Baso % (Auto) 0.7 (0-2) % Neut # (Auto) 5800 (9369-6122) /uL Lymph # (Auto) 1500 (7559-3586) /uL Colbert # (Auto) 400 (0-900) /uL Eos # (Auto) 400 (0-450) /uL Baso # (Auto) 100 (0-100) /uL ABG pH (7.35-7.45) ABG pCO2 (35-45) mmHg ABG pO2 (80-100) mmHg ABG HCO3 (22-26) mmol/L ABG Total CO2 (21-31) mmol/L ABG O2 Saturation (95-100) % ABG Base Excess (-2-2) mmol/L FiO2 Sodium 140 (137-145) mmol/L Potassium 4.3 (3.4-5.1) mmol/L Chloride 100 (98-107) mmol/L Carbon Dioxide 35 H (22-32) mmol/L BUN 25 H (7-17) mg/dL Creatinine 0.97 (0.52-1.04) mg/dL Estimated GFR 57.6 L (>60) mL/min BUN/Creatinine Ratio 25.8 H (6-22) Glucose 142 H (80-110) mg/dL Hemoglobin A1c (4.0-6.0) % Lactate 1.8 (0.7-2.1) mmol/L Calcium 9.1 (8.4-10.2) mg/dL Magnesium 1.8 (1.6-2.3) mg/dL Total Creatine Kinase 35 (30-135) U/L CK-MB (CK-2) TNP CK-MB (CK-2) Rel Index TNP Troponin I 0.013 (0.01-0.034) ng/mL NT-Pro-B Natriuret Pep 445 H (<125) pg/mL Procalcitonin 0.05 (<0.5) ng/mL TSH (0.47-4.68) uIU/mL SARS-CoV-2 (PCR) (Negative) 04/23/21 04/23/21 04/23/21 Range/Units 06:40 06:40 06:43 WBC (4.5-11.0) X10^3/uL RBC (4.0-5.2) X10^6/uL Hgb (12.0-16.0) g/dL Hct (36-46) % MCV (80-100) fL MCH (26-34) PG MCHC (30-36) % RDW (11.6-14.8) % Plt Count (150-400) X10^3/uL Neut % (Auto) (50-75) % Lymph % (Auto) (25-40) % Colbert % (Auto) (3-14) % Eos % (Auto) (2-4) % Baso % (Auto) (0-2) % Neut # (Auto) (4900-7809) /uL Lymph # (Auto) (3409-6885) /uL Colbert # (Auto) (0-900) /uL Eos # (Auto) (0-450) /uL Baso # (Auto) (0-100) /uL ABG pH 7.47 H (7.35-7.45) ABG pCO2 51.5 H (35-45) mmHg ABG pO2 72 L (80-100) mmHg ABG HCO3 38 H (22-26) mmol/L ABG Total CO2 39 H (21-31) mmol/L ABG O2 Saturation 95 (95-100) % ABG Base Excess 14.0 H (-2-2) mmol/L FiO2 33 Sodium (137-145) mmol/L Potassium (3.4-5.1) mmol/L Chloride (98-107) mmol/L Carbon Dioxide (22-32) mmol/L BUN (7-17) mg/dL Creatinine (0.52-1.04) mg/dL Estimated GFR (>60) mL/min BUN/Creatinine Ratio (6-22) Glucose (80-110) mg/dL Hemoglobin A1c 6.4 H (4.0-6.0) % Lactate (0.7-2.1) mmol/L Calcium (8.4-10.2) mg/dL Magnesium (1.6-2.3) mg/dL Total Creatine Kinase (30-135) U/L CK-MB (CK-2) CK-MB (CK-2) Rel Index Troponin I (0.01-0.034) ng/mL NT-Pro-B Natriuret Pep (<125) pg/mL Procalcitonin (<0.5) ng/mL TSH 2.71 (0.47-4.68) uIU/mL SARS-CoV-2 (PCR) (Negative) 04/23/21 Range/Units 07:00 WBC (4.5-11.0) X10^3/uL RBC (4.0-5.2) X10^6/uL Hgb (12.0-16.0) g/dL Hct (36-46) % MCV (80-100) fL MCH (26-34) PG MCHC (30-36) % RDW (11.6-14.8) % Plt Count (150-400) X10^3/uL Neut % (Auto) (50-75) % Lymph % (Auto) (25-40) % Colbert % (Auto) (3-14) % Eos % (Auto) (2-4) % Baso % (Auto) (0-2) % Neut # (Auto) (4652-3044) /uL Lymph # (Auto) (7275-6691) /uL Colbert # (Auto) (0-900) /uL Eos # (Auto) (0-450) /uL Baso # (Auto) (0-100) /uL ABG pH (7.35-7.45) ABG pCO2 (35-45) mmHg ABG pO2 (80-100) mmHg ABG HCO3 (22-26) mmol/L ABG Total CO2 (21-31) mmol/L ABG O2 Saturation (95-100) % ABG Base Excess (-2-2) mmol/L FiO2 Sodium (137-145) mmol/L Potassium (3.4-5.1) mmol/L Chloride (98-107) mmol/L Carbon Dioxide (22-32) mmol/L BUN (7-17) mg/dL Creatinine (0.52-1.04) mg/dL Estimated GFR (>60) mL/min BUN/Creatinine Ratio (6-22) Glucose (80-110) mg/dL Hemoglobin A1c (4.0-6.0) % Lactate (0.7-2.1) mmol/L Calcium (8.4-10.2) mg/dL Magnesium (1.6-2.3) mg/dL Total Creatine Kinase (30-135) U/L CK-MB (CK-2) CK-MB (CK-2) Rel Index Troponin I (0.01-0.034) ng/mL NT-Pro-B Natriuret Pep (<125) pg/mL Procalcitonin (<0.5) ng/mL TSH (0.47-4.68) uIU/mL SARS-CoV-2 (PCR) Negative (Negative) Urine Dip Bedside Urine Glucose Negative Bedside Urine Bilirubin - Negative Bedside Urine Ketone - Negative Urine Specific [place] 1.015 Bedside Urine Occult Blood - Negative Bedside Urine pH 7.0 Bedside Urine Protein - Negative Bedside Urine Urobilinogen - Negative Bedside Urine Nitrite - Negative Bedside Urine Leukocytes - Negative Esterase <Sundar Nancy, DO - Last Filed: 04/23/21 08:46> Lab Data Attestation: I reviewed the patient's lab results. Labs: Lab Results 04/23/21 04/23/21 04/23/21 Range/Units 06:40 06:40 06:40 WBC 8.2 (4.5-11.0) X10^3/uL RBC 4.16 (4.0-5.2) X10^6/uL Hgb 11.4 L (12.0-16.0) g/dL Hct 35.7 L (36-46) % MCV 85.8 (80-100) fL MCH 27.3 (26-34) PG MCHC 31.9 (30-36) % RDW 15.8 H (11.6-14.8) % Plt Count 198 (150-400) X10^3/uL Neut % (Auto) 71.2 (50-75) % Lymph % (Auto) 18.4 L (25-40) % Colbert % (Auto) 4.9 (3-14) % Eos % (Auto) 4.8 H (2-4) % Baso % (Auto) 0.7 (0-2) % Neut # (Auto) 5800 (9116-4923) /uL Lymph # (Auto) 1500 (1436-6030) /uL Colbert # (Auto) 400 (0-900) /uL Eos # (Auto) 400 (0-450) /uL Baso # (Auto) 100 (0-100) /uL ABG pH (7.35-7.45) ABG pCO2 (35-45) mmHg ABG pO2 (80-100) mmHg ABG HCO3 (22-26) mmol/L ABG Total CO2 (21-31) mmol/L ABG O2 Saturation (95-100) % ABG Base Excess (-2-2) mmol/L FiO2 Sodium 140 (137-145) mmol/L Potassium 4.3 (3.4-5.1) mmol/L Chloride 100 (98-107) mmol/L Carbon Dioxide 35 H (22-32) mmol/L BUN 25 H (7-17) mg/dL Creatinine 0.97 (0.52-1.04) mg/dL Estimated GFR 57.6 L (>60) mL/min BUN/Creatinine Ratio 25.8 H (6-22) Glucose 142 H (80-110) mg/dL Hemoglobin A1c (4.0-6.0) % Lactate 1.8 (0.7-2.1) mmol/L Calcium 9.1 (8.4-10.2) mg/dL Magnesium 1.8 (1.6-2.3) mg/dL Total Creatine Kinase 35 (30-135) U/L CK-MB (CK-2) TNP CK-MB (CK-2) Rel Index TNP Troponin I 0.013 (0.01-0.034) ng/mL NT-Pro-B Natriuret Pep 445 H (<125) pg/mL Procalcitonin 0.05 (<0.5) ng/mL TSH (0.47-4.68) uIU/mL SARS-CoV-2 (PCR) (Negative) 04/23/21 04/23/21 04/23/21 Range/Units 06:40 06:40 06:43 WBC (4.5-11.0) X10^3/uL RBC (4.0-5.2) X10^6/uL Hgb (12.0-16.0) g/dL Hct (36-46) % MCV (80-100) fL MCH (26-34) PG MCHC (30-36) % RDW (11.6-14.8) % Plt Count (150-400) X10^3/uL Neut % (Auto) (50-75) % Lymph % (Auto) (25-40) % Colbert % (Auto) (3-14) % Eos % (Auto) (2-4) % Baso % (Auto) (0-2) % Neut # (Auto) (8141-8741) /uL Lymph # (Auto) (8488-9178) /uL Colbert # (Auto) (0-900) /uL Eos # (Auto) (0-450) /uL Baso # (Auto) (0-100) /uL ABG pH 7.47 H (7.35-7.45) ABG pCO2 51.5 H (35-45) mmHg ABG pO2 72 L (80-100) mmHg ABG HCO3 38 H (22-26) mmol/L ABG Total CO2 39 H (21-31) mmol/L ABG O2 Saturation 95 (95-100) % ABG Base Excess 14.0 H (-2-2) mmol/L FiO2 33 Sodium (137-145) mmol/L Potassium (3.4-5.1) mmol/L Chloride (98-107) mmol/L Carbon Dioxide (22-32) mmol/L BUN (7-17) mg/dL Creatinine (0.52-1.04) mg/dL Estimated GFR (>60) mL/min BUN/Creatinine Ratio (6-22) Glucose (80-110) mg/dL Hemoglobin A1c 6.4 H (4.0-6.0) % Lactate (0.7-2.1) mmol/L Calcium (8.4-10.2) mg/dL Magnesium (1.6-2.3) mg/dL Total Creatine Kinase (30-135) U/L CK-MB (CK-2) CK-MB (CK-2) Rel Index Troponin I (0.01-0.034) ng/mL NT-Pro-B Natriuret Pep (<125) pg/mL Procalcitonin (<0.5) ng/mL TSH 2.71 (0.47-4.68) uIU/mL SARS-CoV-2 (PCR) (Negative) 04/23/21 Range/Units 07:00 WBC (4.5-11.0) X10^3/uL RBC (4.0-5.2) X10^6/uL Hgb (12.0-16.0) g/dL Hct (36-46) % MCV (80-100) fL MCH (26-34) PG MCHC (30-36) % RDW (11.6-14.8) % Plt Count (150-400) X10^3/uL Neut % (Auto) (50-75) % Lymph % (Auto) (25-40) % Colbert % (Auto) (3-14) % Eos % (Auto) (2-4) % Baso % (Auto) (0-2) % Neut # (Auto) (9368-7596) /uL Lymph # (Auto) (2173-0669) /uL Colbert # (Auto) (0-900) /uL Eos # (Auto) (0-450) /uL Baso # (Auto) (0-100) /uL ABG pH (7.35-7.45) ABG pCO2 (35-45) mmHg ABG pO2 (80-100) mmHg ABG HCO3 (22-26) mmol/L ABG Total CO2 (21-31) mmol/L ABG O2 Saturation (95-100) % ABG Base Excess (-2-2) mmol/L FiO2 Sodium (137-145) mmol/L Potassium (3.4-5.1) mmol/L Chloride (98-107) mmol/L Carbon Dioxide (22-32) mmol/L BUN (7-17) mg/dL Creatinine (0.52-1.04) mg/dL Estimated GFR (>60) mL/min BUN/Creatinine Ratio (6-22) Glucose (80-110) mg/dL Hemoglobin A1c (4.0-6.0) % Lactate (0.7-2.1) mmol/L Calcium (8.4-10.2) mg/dL Magnesium (1.6-2.3) mg/dL Total Creatine Kinase (30-135) U/L CK-MB (CK-2) CK-MB (CK-2) Rel Index Troponin I (0.01-0.034) ng/mL NT-Pro-B Natriuret Pep (<125) pg/mL Procalcitonin (<0.5) ng/mL TSH (0.47-4.68) uIU/mL SARS-CoV-2 (PCR) Negative (Negative) Urine Dip Bedside Urine Glucose Negative Bedside Urine Bilirubin - Negative Bedside Urine Ketone - Negative Urine Specific [place] 1.015 Bedside Urine Occult Blood - Negative Bedside Urine pH 7.0 Bedside Urine Protein - Negative Bedside Urine Urobilinogen - Negative Bedside Urine Nitrite - Negative Bedside Urine Leukocytes - Negative Esterase Imaging Data Chest x-ray: Radiologist's Impression: Right lower lobe airspace disease which may be on the basis of atelectasis or pneumonia. Cardiomegaly ECG Data Attestation: I personally reviewed and interpreted this ECG as follows: Interpretation: AFib Ventricular rate 114 Normal QRS Normal QTC No ST T wave changes MDM Narrative Medical decision making narrative: Dr cruz: Received turned over. Reviewed patient's history and physical exam. A jordan performed my own physical exam. Since my assumption of care patient has received Lasix. She has urinated. Her labs are relatively unremarkable. She is not clinically in heart failure. I did review patient's medical record. She did have an echocardiogram approximately 1 year ago which showed ejection fraction of 60-65%. Despite this patient states she has been diagnosed with heart failure and is on Lasix. Her shortness of breath has been worsening over the past couple days. She does have a some lower extremity swelling. Afebrile. Lungs are clear. Chest x-ray has some concern about pneumonia however clinically she does not have pneumonia. She does not have leukocytosis, procalcitonin is negative, afebrile, clear lung exam, nonproductive cough. Will hold on any antibiotics for now. During her time here in the emergency department her heart rate did increase. It was irregular. She is AFib on the EKG. She has no history of atrial fibrillation. She is not on anticoagulation. Patient not a candidate for cardioversion. She is stable. Patient was started on Cardizem. Discussed the case with Dr. Rausch who is on-call for the patient's primary doctor who will admit for further evaluation and treatment. I did discuss all this with the patient. She expressed understanding and agreement as well. Discharge Plan Departure Patient Disposition: Admitted As Inpatient Clinical Impression: Atrial fibrillation with RVR, CHF (congestive heart failure) Admit Date/Time: 04/23/21 08:58 Admit Provider: Shahriar Rausch
--- NOTE | 2021-04-23 06:31 | DI.RAD.S_ITS ---
PROCEDURE: XR CHEST 1V INDICATIONS: dyspnea TECHNIQUE: One view of the chest was acquired. COMPARISON: [facility], CR, XR CHEST 1V, 01/14/2021, 6:48. [facility], CR, XR CHEST 1V, 03/27/2020, 17:01. FINDINGS: Surgical changes and devices: None. Lungs and pleura: Prominent pulmonary vasculature markings. Small Eduardo B lines. Small opacity at the right lung base. No pleural effusions or pneumothorax. Mediastinum: Mediastinal contours appear normal. Heart size appears prominent, unchanged. Bones and chest wall: No suspicious bony lesions. Overlying soft tissues appear unremarkable. IMPRESSION: Suspect mild fluid overload/CHF. Prominent heart size. Small opacity at the right lung base. This could be due to atelectasis or pneumonia. Minor discrepancy with the overnight preliminary interpretation. Dictated by: Lan Watt M.D. on 04/23/2021 at 8:07 Approved by: Lan Watt M.D. on 04/23/2021 at 8:11
[2021-04-23] MEDS: FUROSEMIDE 40 MG/4 ML VIAL IV ×3 (06:42→20:43)
[2021-04-23 06:49] LABS: Add Manual Diff / Slide Review NO; Basophils Absolute Auto 100 /uL (0-100); Basophils Percent Auto 0.7 % (0-2); Eosinophils Absolute Auto 400 /uL (0-450); Eosinophils Percent Auto 4.8 % (2-4); Hematocrit 35.7 % (36-46); Hemoglobin 11.4 g/dL (12.0-16.0); Lymphocytes Absolute Auto 1500 /uL (1100-4500); Lymphocytes Percent Auto 18.4 % (25-40); Mean Corpuscular HGB Conc 31.9 % (30-36); Mean Corpuscular Hemoglobin 27.3 PG (26-34); Mean Corpuscular Volume 85.8 fL (80-100); Monocytes Absolute Auto 400 /uL (0-900); Monocytes Percent Auto 4.9 % (3-14); Neutrophils Absolute Auto 5800 /uL (1500-7000); Neutrophils Percent Auto 71.2 % (50-75); Platelet Count 198 X10^3/uL (150-400); Red Blood Cell Count 4.16 X10^6/uL (4.0-5.2); Red Cell Distribution Width 15.8 % (11.6-14.8); White Blood Cell Count 8.2 X10^3/uL (4.5-11.0)
[2021-04-23 06:58] LABS: Lactate (Lactic Acid) 1.8 mmol/L (0.7-2.1)
[2021-04-23 06:59] LABS: BUN Creatinine Ratio 25.8 (6-22); Blood Urea Nitrogen 25 mg/dL (7-17); Calcium 9.1 mg/dL (8.4-10.2); Carbon Dioxide 35 mmol/L (22-32); Chloride 100 mmol/L (98-107); Creatine Kinase 35 U/L (30-135); Estimated Glomerular Filt Rate 57.6 mL/min (>60); Glucose 142 mg/dL (80-110); HEMOLYSIS < 15 (0-50); Magnesium 1.8 mg/dL (1.6-2.3); Potassium 4.3 mmol/L (3.4-5.1); Sodium 140 mmol/L (137-145)
[2021-04-23 07:12] LABS: NT-proBNP (BNP-Adult 18+) 445 pg/mL (<125); Troponin I 0.013 ng/mL (0.01-0.034)
[2021-04-23 07:16] LABS: Procalcitonin 0.05 ng/mL (<0.5)
[2021-04-23 07:29] LABS: COVID19 -Nasal RAPID Negative (Negative)
[2021-04-23 08:17] LABS: Fractionated Inspired Oxygen 33; HCO3 ABG 38 mmol/L (22-26); Oxygen Saturation ABG 95 % (95-100); PCO2 ABG 51.5 mmHg (35-45); PO2 ABG 72 mmHg (80-100); TCO2 ABG 39 mmol/L (21-31); pH ABG 7.47 (7.35-7.45)
[2021-04-23] MEDS: dilTIAZem 125 MG in SODIUM CHLORIDE 0.9% 100 ML IV (08:20)
[2021-04-23] MEDS: dilTIAZem 5 MG/ML SDV 10 MG IV (08:20)
[2021-04-23 09:20] LABS: INR 1.1 (0.9-1.3); Prothrombin Time 12.4 SECONDS (10.1-12.7)
[2021-04-23 09:23] LABS: PTT Partial Thromboplastin Tim 34 SECONDS (26.4-36.2)
[2021-04-23 09:39] LABS: Thyroid Stimulating Hormone 2.71 uIU/mL (0.47-4.68)
--- NOTE | 2021-04-23 09:49 | DI.ECHO.S_ITS ---
[place] [facility]---------+ [facility] +---------+ : : [address] : : : : [id number] : : : : Phone: [phone]+ Echocardiogram Report + + :Name: VRAGHESE LÓPEZ Study Date: 04/23/2021 Height: 66 in : :[facility] ReadingLocation: Weight: 395 lb : : Gender: Female BSA: 2.7 m2 : :: 1955 Age: 66 yrs BP: 132/65 mmHg: :Reason For Study: ATRIAL FIBRILLATION : :Ordering Physician: CALIXTO, : :BUTCH Performed By: Soledad Benson : :Referring: BUTCH DE LUNA : + + Interpretation Summary Left ventricular systolic function remains normal with an estimated ejection fraction of 60 to 65% without any focal wall motion abnormality. Left ventricular size remains normal with mild concentric LVH that is unchanged from the previous study. Diastolic function cannot be assessed because of the presence of atrial fibrillation. Otherwise, there has been no significant change since the previous study. The right ventricle is borderline enlarged with normal systolic function and appears slightly larger compared to the previous study. Right ventricular systolic pressure cannot be estimated but CVP is likely around 3 mmHg. Left atrial size is normal and slightly smaller compared to the previous exam while the right atrium is mildly enlarged and slightly larger. There is no significant functional valvular abnormality although there is mild to moderate mitral annular calcification noted. The ascending aorta and aortic arch are mildly enlarged but grossly unchanged from the previous exam. The patient was in atrial fibrillation at 60-90 bpm which is new since the previous study. Procedure: A two-dimensional transthoracic echocardiogram with color flow and Doppler was performed. The study quality was technically difficult. There is no prior echocardiogram noted for this patient. The patient was in atrial fibrillation with heart rates between 58-98 bpm during the exam. This is new compared to the previous study. Left Ventricle: The left ventricle is normal in size. There is mild concentric left ventricular hypertrophy. Left ventricular systolic function appears normal without focal wall motion abnormalities. The ejection fraction is estimated to be 60-65%. This is unchanged compared to the previous study. Diastolic function could not be accurately assessed due to atrial fibrillation. Right Ventricle: The right ventricle is borderline dilated. The right ventricular systolic function is normal. This is slightly larger compared to the previous study. Atria: The left atrial size is normal. The left atrium has mildly decreased in size since the prior echo exam. The right atrium is mildly dilated. This is slightly increased compared to the previous study. There is no Doppler evidence for an interatrial shunt. Mitral Valve: There is mild to moderate mitral annular calcification. The mitral valve leaflets appear mildly thickened, but open well. There is trace mitral regurgitation. Aortic Valve: The aortic valve is not well visualized. The aortic valve is slightly calcified. The aortic valve opens well. There is no aortic valve stenosis. No aortic regurgitation is present. Tricuspid Valve: The tricuspid valve is not well visualized, but is grossly normal. No tricuspid regurgitation. Pulmonary artery pressures cannot be estimated because of the lack of a measurable TR jet velocity but the IVC suggests a CVP of around 3 mmHg. Pulmonic Valve: The pulmonic valve is not well visualized. There is trace pulmonic regurgitation. There is no significant valvular heart disease. Great Vessels: The aortic root is normal size. The ascending aorta is mildly enlarged. The aortic arch is mildly enlarged. This is unchanged compared to the previous study. The IVC is of normal diameter and collapses greater than 50% with a sniff. This suggests a low right atrial pressure of 3 mm Hg. Pericardium/ Pleura There is no pericardial effusion. There is no pleural effusion. MMode/2D Measurements & Calculations LVIDd: 4.8 cm LVOT diam: 2.3 cm LVIDs: 3.4 cm Ao root diam: 3.4 cm FS: 29.6 % asc Aorta Diam: 3.4 cm IVSd: 1.1 cm Ao Arch Diam (Prox Trans): 3.2 cm LVPWd: 1.1 cm LV yan. diameter/BSA (cm/m^2): 1.8 LV sys. diameter/BSA (cm/m^2): 1.3 LA A2 area: 26.6 cm2 RA long axis: 5.7 cm LA A4 area: 23.1 cm2 RA area: 21.9 cm2 LA length (vol): 5.9 cm RA vol: 72.4 ml LA vol: 87.9 ml RA : 27.1 ml/m2 LA vol index: 32.9 ml/m2 IVC diam: 1.5 cm RVD1 (basal): 4.2 cm TAPSE: 2.2 cm Doppler Measurements & Calculations MV E max pepe: 134.0 cm/sec PA V2 max: 144.4 cm/sec MV A max pepe: 0.92 cm/sec PA V2 mean: 101.1 cm/sec MV E/A: 145.5 PA mean P.6 mmHg Med Peak E' Pepe: 6.4 cm/sec PA pr(Accel): 46.5 mmHg E/E' med: 20.9 Lat Peak E' Pepe: 9.8 cm/sec E/E' lat: 13.6 E/e' average: 17.3 MV dec time: 0.22 sec MV V2 mean: 71.4 cm/sec MV mean P.6 mmHg MV V2 VTI: 29.0 cm Reading Physician:01:26 PM
[2021-04-23] MEDS: predniSONE 20 MG TABLET PO (10:11)
--- NOTE | 2021-04-23 10:32 | DI.RAD.S_ITS ---
PROCEDURE: XR ANKLE RT MIN 3V INDICATIONS: right ankle pain for a few months TECHNIQUE: 3 views of the ankle were acquired. COMPARISON: [facility], CR, XR ANKLE LT MIN 3V, 07/11/2019, 15:30. FINDINGS: Bones: No fractures or dislocations. No periosteal reaction. Ankle mortise is normally aligned. Mild degenerative change appreciated. No suspicious bony lesions. Soft tissues: No tibiotalar joint effusion. Achilles tendon appears normal. IMPRESSION: No acute osseous abnormality. Dictated by: Lan Watt M.D. on 04/23/2021 at 11:19 Approved by: Lan Watt M.D. on 04/23/2021 at 11:22
[2021-04-23] MEDS: ACETAMINOPHEN 325 MG TABLET 650 MG PO ×2 (10:37→18:07)
--- NOTE | 2021-04-23 11:03 | PM.HP.1 ---
History of Present Illness History of Present Illness Date Patient Seen: 04/23/21 Time Patient Seen: 10:30 Chief complaint: difficulty breathing Narrative: 66-year-old female with a past medical history of congestive heart failure type 2 diabetes essential hypertension obesity with a BMI of 63 sleep apnea restless leg syndrome. Patient comes in today with complaints of feeling shortness of breath. Patient states she was admitted last year to the hospital with shortness of breath. She was started on a couple of medications and was told that she had heart failure. Patient over the last few weeks to a month or so has noticed that she has had increasing difficulty with breathing and feeling more swollen especially in her feet and ankles she takes daily Lasix. Patient increased her dose of Lasix and did not really notice any improvement of her breathing. She felt like symptoms had gotten worse in the last 48 hours. She woke up last night in the middle the night with shortness of breath. She said she felt like she was having a hard of time catching her breath that she needed to come to the emergency department. She states that has been progressive. The shortness of breath was not associated with difficulty to with chest pain. She has not had any problems that she is aware of her heart beating fast. She was not appreciating any lightheaded and dizziness. She has some daily fatigue. She has not had any headaches. She has not had any fevers or chills or cough or congestion. In the emergency department she had a workup blood pressure was quite high to 180 systolic her pulse was quite tachycardic with a 140-120 heart rate. And she was found to be in atrial fibrillation which was new for her. White blood cell count mild anemia PaO2 on ABG is 72 O2 sats of 95% normal electrolytes normal kidney function cardiac troponin was normal CK-MB was normal BNP was elevated at 445 and procalcitonin was 0.5. We added on a thyroid which was normal as well as a magnesium and SARS-CoV-2 test was negative. Chest x-ray shows fluid overload pattern with CHF prominent heart size. On review of patient's record patient had an echocardiogram about a year and 3 months ago showed left ventricular hypertrophy ejection fraction of 60-65% and no significant valvular heart disease. Patient History Medical History Allergies Anemia (1993) Ankle pain (~2019) Arthritis (1999) Asthma (~1970) BMI 60.0-69.9, adult Depression Diabetes type 2, controlled Essential hypertension (04/08/16) Foot pain (2010) Gout (1998) Hayfever Heart murmur (1999) Insomnia (04/08/16) Knee pain (2009) Morbid obesity Obesity hypoventilation syndrome Other osteoarthritis involving multiple joints (05/26/17) Ovarian cyst (1975) Oxygen dependent (~2019) RLS (restless legs syndrome) (2012) Sleep apnea (2011) Urinary incontinence (2013) Surgical History Anesthesia complication LAP-BAND surgery status (2012) Status post arthroscopy (2000) Status post cholecystectomy (1998) Status post hysterectomy (1995) Status post right foot surgery (2009) Family & Social History Family History Father Diabetes mellitus Heart disease Hypertension High cholesterol Renal failure Grandfather Heart disease Heart attack Grandmother Cancer Breast cancer Mother Diabetes mellitus Heart disease Heart failure Hypertension Grandfather Heart disease Dementia Grandmother Cancer Breast cancer Colon cancer Ovarian cancer Sister Age: 59 Fibromyalgia Bone cancer Brother Hyperlipidemia Sister Hypertension Social History: household members none Safety & Behavioral: Feels Safe in Current Yes Environment Tobacco & Substance use: Smoking Status Never smoker alcohol intake never Substance Use Type does not use Meds Home Medications and Allergies Home Medications Medication Instructions Recorded Confirmed Type ascorbic acid (vitamin C) 500 mg 1,000 mg PO QDAY #0 tab 04/08/16 10/10/20 History tablet aspirin 81 mg tablet,delayed 81 mg PO QDAY #30 tab 04/08/16 10/10/20 History release melatonin 3 mg tablet 3 mg PO HS #0 tab 04/08/16 10/10/20 History multivitamin (Multiple Vitamins) 1 tab PO QDAY #0 tab 04/08/16 10/10/20 History naproxen 500 mg tablet 440 mg PO BID 03/27/20 10/10/20 History albuterol sulfate 90 mcg/actuation 2 puff INHALATION Q4-6H PRN #8.5 05/16/20 10/10/20 Rx aerosol inhaler gram indomethacin 25 mg capsule See Rx Instructions PO .COMPLEX 05/28/20 10/10/20 Rx PRN #20 cap furosemide 40 mg tablet 40 mg PO DAILY #90 tab 11/08/20 Rx hydrocodone 5 mg-acetaminophen 325 1 tab PO Q4-6H PRN #10 tab 01/14/21 Rx mg tablet prednisone 20 mg tablet 20 mg PO DAILY #25 tab 01/14/21 Rx losartan 25 mg tablet 50 mg PO BID #120 tab 04/11/21 Rx pramipexole 0.5 mg tablet 0.5 - 2 mg PO BEDTIME PRN #120 tab 04/11/21 Rx spironolactone 25 mg tablet 50 mg PO BID #120 tab 04/11/21 Rx trazodone 100 mg tablet 100 mg PO BEDTIME #30 tab 04/11/21 Rx Allergies Allergy/AdvReac Type Severity Reaction Status Date / Time codeine [CODEINE] Allergy Intermediate GASTRIC Verified 10/10/20 15:32 UPSET Sulfa (Sulfonamide Allergy Intermediate RASH/HIVES Verified 10/10/20 15:32 Antibiotics) [SULFA (SULFONAMIDE ANTIBIOTICS)] Exam Vital Signs (past 8 hours): - 04/23/21 06:34 04/23/21 06:59 04/23/21 07:00 Temperature 97.2 F L Pulse Rate 140 H 125 H 126 H Respiratory Rate 35 H 18 25 H Blood Pressure 183/108 H Pulse Oximetry 93 96 96 04/23/21 07:12 04/23/21 07:30 04/23/21 07:31 Temperature Pulse Rate 124 H 138 H Respiratory Rate 22 25 H 20 Blood Pressure 193/136 H 164/66 H Pulse Oximetry 95 95 96 04/23/21 07:46 04/23/21 08:00 04/23/21 08:01 Temperature Pulse Rate 148 H 130 H 130 H Respiratory Rate 19 32 H Blood Pressure 164/66 H 167/76 H Pulse Oximetry 95 95 04/23/21 08:22 04/23/21 08:27 04/23/21 08:30 Temperature Pulse Rate 135 H 128 H 86 Respiratory Rate 21 23 27 H Blood Pressure 154/83 H 144/62 H Pulse Oximetry 94 95 95 04/23/21 08:31 04/23/21 08:41 04/23/21 08:51 Temperature Pulse Rate 84 125 H 73 Respiratory Rate 21 24 Blood Pressure 146/78 H 147/99 H 132/65 Pulse Oximetry 94 95 94 04/23/21 09:00 04/23/21 09:30 04/23/21 09:53 Temperature Pulse Rate 91 H 97 H 91 H Respiratory Rate Blood Pressure 141/64 H 162/72 H Pulse Oximetry 95 96 97 04/23/21 09:58 04/23/21 10:00 04/23/21 10:01 Temperature Pulse Rate 84 90 81 Respiratory Rate Blood Pressure 169/70 H Pulse Oximetry 97 97 04/23/21 10:11 Temperature Pulse Rate 77 Respiratory Rate Blood Pressure 171/70 H Pulse Oximetry 98 Oxygen Delivery Method Nasal Cannula Oxygen Flow Rate 3 Narrative Exam Narrative: Gen.: Alert good historian resting comfortably in the emergency room bed. She says her breathing is better HEENT: Pupils equal round and reactive or mucosa is moist neck is supple Cardio: S1-S2 irregular rate and rhythm heart sounds are distant Respiratory: Normal respiratory effort. It a appreciate some fine crackles in the lower lung field. Abdomen: Soft obese nontender Extremities: 2+ edema lower extremities Neurologic: Grossly intact. Objective Labs Result Diagrams: 04/23/21 06:40 04/23/21 06:40 Labs: Laboratory Results - last 24 hr 04/23/21 04/23/21 04/23/21 06:40 06:40 06:40 WBC 8.2 RBC 4.16 Hgb 11.4 L Hct 35.7 L MCV 85.8 MCH 27.3 MCHC 31.9 RDW 15.8 H Plt Count 198 Neut % (Auto) 71.2 Lymph % (Auto) 18.4 L Allen % (Auto) 4.9 Eos % (Auto) 4.8 H Baso % (Auto) 0.7 Neut # (Auto) 5800 Lymph # (Auto) 1500 Allen # (Auto) 400 Eos # (Auto) 400 Baso # (Auto) 100 PT INR APTT ABG pH ABG pCO2 ABG pO2 ABG HCO3 ABG Total CO2 ABG O2 Saturation ABG Base Excess FiO2 Sodium 140 Potassium 4.3 Chloride 100 Carbon Dioxide 35 H BUN 25 H Creatinine 0.97 Estimated GFR 57.6 L BUN/Creatinine Ratio 25.8 H Glucose 142 H Lactate 1.8 Calcium 9.1 Magnesium 1.8 Total Creatine Kinase 35 CK-MB (CK-2) TNP CK-MB (CK-2) Rel Index TNP Troponin I 0.013 NT-Pro-B Natriuret Pep 445 H Procalcitonin 0.05 TSH SARS-CoV-2 (PCR) 04/23/21 04/23/21 04/23/21 06:40 06:45 07:00 WBC RBC Hgb Hct MCV MCH MCHC RDW Plt Count Neut % (Auto) Lymph % (Auto) Allen % (Auto) Eos % (Auto) Baso % (Auto) Neut # (Auto) Lymph # (Auto) Allen # (Auto) Eos # (Auto) Baso # (Auto) PT INR APTT ABG pH 7.47 H ABG pCO2 51.5 H ABG pO2 72 L ABG HCO3 38 H ABG Total CO2 39 H ABG O2 Saturation 95 ABG Base Excess 14.0 H FiO2 33 Sodium Potassium Chloride Carbon Dioxide BUN Creatinine Estimated GFR BUN/Creatinine Ratio Glucose Lactate Calcium Magnesium Total Creatine Kinase CK-MB (CK-2) CK-MB (CK-2) Rel Index Troponin I NT-Pro-B Natriuret Pep Procalcitonin TSH 2.71 SARS-CoV-2 (PCR) Negative 04/23/21 09:07 WBC RBC Hgb Hct MCV MCH MCHC RDW Plt Count Neut % (Auto) Lymph % (Auto) Allen % (Auto) Eos % (Auto) Baso % (Auto) Neut # (Auto) Lymph # (Auto) Allen # (Auto) Eos # (Auto) Baso # (Auto) PT 12.4 INR 1.1 APTT 34 ABG pH ABG pCO2 ABG pO2 ABG HCO3 ABG Total CO2 ABG O2 Saturation ABG Base Excess FiO2 Sodium Potassium Chloride Carbon Dioxide BUN Creatinine Estimated GFR BUN/Creatinine Ratio Glucose Lactate Calcium Magnesium Total Creatine Kinase CK-MB (CK-2) CK-MB (CK-2) Rel Index Troponin I NT-Pro-B Natriuret Pep Procalcitonin TSH SARS-CoV-2 (PCR) Assessment & Plan Assessment & Plan narrative: Atrial fibrillation with rapid ventricular response. Patient with new onset atrial fibrillation. Will go ahead and check a thyroid and magnesium. Continue with a as additional workup of cardiac enzymes to make sure there is no underlying coronary artery disease. No concerns about drugs or alcohol as the cause. Will go continued evaluation with a repeat echocardiogram. Her EKG is reviewed. Will go ahead and work on rate control she was started Cardizem drip we will continue with this and titrate for good pulse and monitor closely blood pressure. Will go ahead and start her on oral metoprolol extended release 50 mg twice a day to see if we can not wean her off her cardia is am eventually. Will go ahead and place her on Eliquis 5 mg twice daily as her CHADS2 Vasc score is 7. Acute systolic congestive heart failure. Patient has congestive heart failure elevated BNP increased bronchovascular markings on chest x-ray. She was given a dose of IV Lasix in the emergency department. This helped with diuresis. Will continue with IV Lasix 40 mg twice a day I think diuresis would be a major component of a treating her underlying shortness of breath and helping her heart function better. Will monitor closely electrolytes. Provide potassium replacement orally. Her congestive heart failure certainly exacerbated by her new onset atrial fibrillation. Diabetes type 2. Patient has diabetes listed on her problem list. She is currently not on any medication for diabetes. Will go ahead and check a hemoglobin A1c while she is here in the hospital. Will provide a general diet and monitor her blood sugars. Essential hypertension her blood pressure is high. Will continue with her Cardizem drips adjust oral metoprolol. Continue with her angiotensin receptor marguerite and will ultimately place her back on her spironolactone. Obesity with a BMI of 63. Her obesity will certainly provide increased difficulty with her care. Nursing care ambulation to the bathroom. Medication dosing etc.. Code status patient is a full code. Scores CHADS-VASc Congestive heart failure: yes Hypertension: yes Age 75 years or older: no Diabetes mellitus: yes Stroke, TIA, or TE: yes Vascular disease: no Age 65 to 74 years: yes Sex category (female): Female CHADS-VASc Score: 7
[2021-04-23] MEDS: APIXABAN 5 MG TABLET PO ×2 (11:32→20:43)
[2021-04-23] MEDS: METOPROLOL ER 50 MG TABLET PO ×2 (11:33→20:44)
[2021-04-23] MEDS: LOSARTAN 25 MG TABLET 50 MG PO (11:33)
[2021-04-23 11:39] LABS: Hemoglobin A1C% w Est Avg Glu 6.4 % (4.0-6.0)
[2021-04-23] MEDS: dilTIAZem 125 MG in DEXTROSE 5 % IN WATER 100 ML 15 ML IV (14:55)
[2021-04-23] MEDS: POTASSIUM CHLORIDE 20 MEQ TAB PO (16:15)
[2021-04-23] MEDS: LOSARTAN 50 MG TABLET PO (20:43)
[2021-04-23] MEDS: PRAMIPEXOLE 1 MG TABLET PO (20:48)
--- NOTE | 2021-04-23 21:34 | PC.NURSE ---
Pt up to BSC, HR increased to 130's, once pt was back to bed and at rest HR decreased to 75-80.
--- NOTE | 2021-04-23 23:15 | PC.NURSE ---
Pt had diltiazem turned off at 2145, currently HR 70-85 a rest with HR increasing to 130's with transferring [place] [facility]
[2021-04-24] VITALS (14 sets, daily range): BP systolic 126–163; BP diastolic 62–105; PULSE 60–86; RESP 16–35; TEMP 36.1–36.7; O2SAT 92–100; BMI 63.3
[2021-04-24] MEDS: ACETAMINOPHEN 325 MG TABLET 650 MG PO ×3 (00:50→20:53)
[2021-04-24] MEDS: TRAZODONE 100 MG TABLET PO ×2 (01:59→20:58)
--- NOTE | 2021-04-24 03:02 | PC.ADMIT ---
Patient admitted to room 214 from ER per stretcher. Arrived in ER yesterday at 0700 because I couldn't breathe. Is alert and oriented. Breath sounds diminished throughout. On oxygen at 3L/min per NC with sat of 96%; states she uses O2 all the time at home at 3L/min; is on continuous pulse oximetry. Denies feeling SOB. HR irregular and telemetry reading was afib CVR with occasional PVC's. Denies nausea. BT hypoactive and abdomen is soft. Red, moist, cracked skin in right side fold, abdominal fold, left groin and behind bilateral knees. Feet are dry, scaly and cracked with redness on plantar surface of both feet. Is able to move herself in bed. Instructed to call for assistance when needing to get up to the bathroom as fall risk score is high; patient verbalizes understanding. Denies dysuria, frequency or urgency (except after receiving IV Lasix). Edema bilateral LE right > left. Complains of 4/10 chronic pain in right knee and ankle and was medicated with Tylenol prior to arrival to room. Oriented to bed controls and call light. Bilateral calf SCD's applied. [email or web address] Admission Note: The patient,Shyanne Zapata,66 y/o, was given written information regarding hospital policies, unit procedures and contact persons. Patient's smoking status: Never smoker. Vital Signs - 8 hr 04/23/21 19:07 04/23/21 19:08 04/23/21 19:30 Temperature Pulse Rate 79 79 81 Respiratory Rate 21 27 H 20 Blood Pressure 142/64 H Pulse Oximetry 96 96 96 04/23/21 20:00 04/23/21 20:04 04/23/21 20:30 Temperature Pulse Rate 77 81 75 Respiratory Rate 20 23 22 Blood Pressure 135/65 Pulse Oximetry 95 96 93 04/23/21 20:43 04/23/21 20:44 04/23/21 21:00 Temperature Pulse Rate 80 80 88 Respiratory Rate 27 H Blood Pressure 135/65 135/65 Pulse Oximetry 94 04/23/21 21:30 04/23/21 21:48 04/23/21 21:51 Temperature Pulse Rate 87 77 75 Respiratory Rate 24 Blood Pressure 134/70 134/70 Pulse Oximetry 94 96 04/23/21 22:00 04/23/21 22:30 04/23/21 23:00 Temperature Pulse Rate 76 79 77 Respiratory Rate 21 20 20 Blood Pressure Pulse Oximetry 96 94 95 04/23/21 23:30 04/24/21 00:00 04/24/21 00:30 Temperature Pulse Rate 77 81 75 Respiratory Rate 22 23 19 Blood Pressure Pulse Oximetry 95 95 96 04/24/21 01:00 04/24/21 01:10 Temperature 97.1 F L Pulse Rate 81 86 Respiratory Rate 35 H 20 Blood Pressure 127/81 Pulse Oximetry 96 96
[2021-04-24 06:35] LABS: Add Manual Diff / Slide Review NO; Basophils Absolute Auto 0 /uL (0-100); Basophils Percent Auto 0.3 % (0-2); Eosinophils Absolute Auto 200 /uL (0-450); Eosinophils Percent Auto 1.7 % (2-4); Hematocrit 36.3 % (36-46); Hemoglobin 11.5 g/dL (12.0-16.0); Lymphocytes Absolute Auto 1700 /uL (1100-4500); Lymphocytes Percent Auto 18.5 % (25-40); Mean Corpuscular HGB Conc 31.7 % (30-36); Mean Corpuscular Hemoglobin 27.2 PG (26-34); Mean Corpuscular Volume 85.8 fL (80-100); Monocytes Absolute Auto 600 /uL (0-900); Monocytes Percent Auto 6.5 % (3-14); Neutrophils Absolute Auto 6700 /uL (1500-7000); Platelet Count 209 X10^3/uL (150-400); Red Blood Cell Count 4.23 X10^6/uL (4.0-5.2); Red Cell Distribution Width 15.8 % (11.6-14.8); White Blood Cell Count 9.2 X10^3/uL (4.5-11.0)
[2021-04-24 06:43] LABS: Alanine Aminotransferase 14 IU/L (<35); Albumin 3.6 g/dL (3.5-5.0); Albumin Globulin Ratio 1.1 (1.0-2.8); Alkaline Phosphatase 72 U/L (38-126); Aspartate Aminotransferase 16 IU/L (14-36); Bilirubin Total 0.3 mg/dL (0.2-1.3); Blood Urea Nitrogen 33 mg/dL (7-17); Calcium 9.1 mg/dL (8.4-10.2); Carbon Dioxide 38 mmol/L (22-32); Chloride 95 mmol/L (98-107); Globulin 3.4 g/dL (1.7-4.1); Glucose 131 mg/dL (80-110); HEMOLYSIS < 15 (0-50); Sodium 138 mmol/L (137-145)
[2021-04-24 06:54] LABS: NT-proBNP (BNP-Adult 18+) 1500 pg/mL (<125); Troponin I < 0.012 ng/mL (0.01-0.034)
[2021-04-24] MEDS: POTASSIUM CHLORIDE 20 MEQ TAB PO ×2 (07:57→17:19)
[2021-04-24] MEDS: METOPROLOL ER 50 MG TABLET PO ×2 (08:10→20:52)
[2021-04-24] MEDS: LOSARTAN 50 MG TABLET PO ×2 (08:10→20:52)
[2021-04-24] MEDS: FUROSEMIDE 40 MG/4 ML VIAL IV ×2 (08:10→20:52)
[2021-04-24] MEDS: APIXABAN 5 MG TABLET PO ×2 (08:10→20:53)
--- NOTE | 2021-04-24 08:30 | P.PN_ITS ---
Subjective Subjective Date Patient Seen: 04/24/21 Time Patient Seen: 08:30 Interval history: Patient seen and evaluated this morning in multiple times yesterday. Patient was finally able to get up to her bed from the ER at 1:00 a.m. in the morning. She is more comfortable eating. She says she is breathing a lot better. She has no pain. She does not feel like her heart is beating fast. She is up ambulating to the bathroom. She still complaining of some left ankle pain which is due to arthritis in her lower extremity swelling. She is diuresing well. He has had good urine output with her Lasix. Heart rates stable and she is off Cardizem drips. Exam Vital Signs (past 8 hours): - 04/24/21 01:00 04/24/21 01:10 04/24/21 05:52 Temperature 97.1 F L 97.1 F L Pulse Rate 81 86 81 Respiratory Rate 35 H 20 16 Blood Pressure 127/81 126/62 Pulse Oximetry 96 96 92 Oxygen Delivery Method Nasal Cannula Oxygen Flow Rate 3 Narrative Exam Narrative: General: Alert good historian HEENT: Pupils equal round and reactive oral mucosa is moist neck is supple. Cardio: S1-S2 irregular rate and rhythm Respiratory: Lungs are clear. Normal respiratory effort Abdomen: Obese soft Extremities: 2+ edema Objective Labs Result Diagrams: 04/24/21 06:16 04/24/21 06:16 Labs: Laboratory Results - last 24 hr 04/23/21 04/23/21 04/23/21 06:40 06:40 06:43 WBC RBC Hgb Hct MCV MCH MCHC RDW Plt Count Neut % (Auto) Lymph % (Auto) [place] % (Auto) Eos % (Auto) Baso % (Auto) Neut # (Auto) Lymph # (Auto) [place] # (Auto) Eos # (Auto) Baso # (Auto) PT INR APTT ABG pH 7.47 H ABG pCO2 51.5 H ABG pO2 72 L ABG HCO3 38 H ABG Total CO2 39 H ABG O2 Saturation 95 ABG Base Excess 14.0 H FiO2 33 Sodium Potassium Chloride Carbon Dioxide BUN Creatinine Estimated GFR BUN/Creatinine Ratio Glucose Hemoglobin A1c 6.4 H Calcium Total Bilirubin AST ALT Alkaline Phosphatase Troponin I NT-Pro-B Natriuret Pep Total Protein Albumin Globulin Albumin/Globulin Ratio TSH 2.71 04/23/21 04/24/21 04/24/21 09:07 06:16 06:16 WBC 9.2 RBC 4.23 Hgb 11.5 L Hct 36.3 MCV 85.8 MCH 27.2 MCHC 31.7 RDW 15.8 H Plt Count 209 Neut % (Auto) 73.0 Lymph % (Auto) 18.5 L [place] % (Auto) 6.5 Eos % (Auto) 1.7 L Baso % (Auto) 0.3 Neut # (Auto) 6700 Lymph # (Auto) 1700 [place] # (Auto) 600 Eos # (Auto) 200 Baso # (Auto) 0 PT 12.4 INR 1.1 APTT 34 ABG pH ABG pCO2 ABG pO2 ABG HCO3 ABG Total CO2 ABG O2 Saturation ABG Base Excess FiO2 Sodium 138 Potassium 4.0 Chloride 95 L Carbon Dioxide 38 H BUN 33 H Creatinine 1.18 H Estimated GFR 46.0 L BUN/Creatinine Ratio 28.0 H Glucose 131 H Hemoglobin A1c Calcium 9.1 Total Bilirubin 0.3 AST 16 ALT 14 Alkaline Phosphatase 72 Troponin I < 0.012 NT-Pro-B Natriuret Pep 1500 H Total Protein 7.0 Albumin 3.6 Globulin 3.4 Albumin/Globulin Ratio 1.1 TSH PFSH Medical History Allergies Anemia (1993) Ankle pain (~2019) Arthritis (1999) Asthma (~1970) BMI 60.0-69.9, adult Depression Diabetes type 2, controlled Essential hypertension (04/08/16) Foot pain (2010) Gout (1998) Hayfever Heart murmur (1999) Insomnia (04/08/16) Knee pain (2009) Morbid obesity Obesity hypoventilation syndrome Other osteoarthritis involving multiple joints (05/26/17) Ovarian cyst (1975) Oxygen dependent (~2019) RLS (restless legs syndrome) (2012) Sleep apnea (2011) Urinary incontinence (2013) Surgical History Anesthesia complication LAP-BAND surgery status (2012) Status post arthroscopy (2000) Status post cholecystectomy (1998) Status post hysterectomy (1995) Status post right foot surgery (2009) Family History Father Diabetes mellitus Heart disease Hypertension High cholesterol Renal failure Grandfather Heart disease Heart attack Grandmother Cancer Breast cancer Mother Diabetes mellitus Heart disease Heart failure Hypertension Grandfather Heart disease Dementia Grandmother Cancer Breast cancer Colon cancer Ovarian cancer Sister Age: 59 Fibromyalgia Bone cancer Brother Hyperlipidemia Sister Hypertension Social History household members: none Smoking Status: Never smoker alcohol intake: former Assessment & Plan Assessment & Plan narrative: Atrial fibrillation with rapid ventricular response. Patient upon the medical floor now. We were able to stop her cardiac exam drips. Continue with the metoprolol extended release 50 mg twice a day for rate control. She still in atrial fibrillation. Heart rate is much improved. She remains on Eliquis for anticoagulation and her CHADS2 Vasc score is high. Reviewed anticoagulation with her and her new medications today. Acute systolic congestive heart failure. Patient with a systolic heart failure. We will go ahead and back off her diuresis today she received 3 doses of IV Lasix yesterday her creatinine bumped a little bit. I think she can afford to continue to be further diuresed. Will continue with 40 mg IV daily Lasix. Monitor kidney function and electrolytes. May need another day or 2 of diuresis of fluid. BNP is elevated cardiac troponin is normal echocardiogram results were reviewed. Diabetes type 2. Patient has diabetes listed on her problem list. Check hemoglobin A1c. Blood sugars are okay at this point. Continue with regular diet. Essential hypertension her blood pressure is improved today. Continue with antihypertensives. Obesity with a BMI of 63. Her obesity will certainly provide increased difficulty with her care. Nursing care ambulation to the bathroom. Medication dosing etc.. Code status patient is a full code. Disposition and plan. Continue with oral metoprolol anticoagulation. Will continue working on diuresis is he is in heart failure. Anticipate 24-48 hour more hospital stay. Will need home health at discharge. Work on physical therapy today
--- NOTE | 2021-04-24 10:04 | PC.NURSE ---
Assess- Patient is alert and oriented x3. Her blood sugar is 123, ate well at breakfast. Patients iv lasix has been changed to po. She was up to the bathroom x1, with O2 in place at 3l. Patient is a one person sba, and is steady on her feet. LS clear to auscultation but diminished. Satting in the mid 90s.
[2021-04-24] MEDS: SPIRONOLACTONE 25 MG TABLET 50 MG PO (11:00)
--- NOTE | 2021-04-24 13:40 | PT.IIE ---
Current Diagnoses Unspecified atrial fibrillation (04/23/21) Surgical History (Last Reviewed 04/23/21 @ 06:34 by Bon Zamora DO) Anesthesia complication Status post arthroscopy (2000) Status post cholecystectomy (1998) Status post hysterectomy (1995) Medical History (Last Reviewed 04/23/21 @ 06:34 by Bon Zamora DO) Allergies Anemia (1993) Ankle pain (~2019) Arthritis (1999) Asthma (~1970) BMI 60.0-69.9, adult Depression Diabetes type 2, controlled Essential hypertension (04/08/16) Foot pain (2010) Gout (1998) Hayfever Heart murmur (1999) Insomnia (04/08/16) Knee pain (2009) Morbid obesity Obesity hypoventilation syndrome Other osteoarthritis involving multiple joints (05/26/17) Ovarian cyst (1975) Oxygen dependent (~2019) RLS (restless legs syndrome) (2012) Sleep apnea (2011) Urinary incontinence (2013) Physical Therapy Inpatient Evaluation/Re-Eval M1 PT/OT-IP Prior Functional Status Start: 04/24/21 17:41 Freq: NEEDED Status: Active Protocol: Document 04/24/21 13:40 AB (Rec: 04/24/21 17:54 AB [email or web address]) Medical Review Prior Functional Status Medical History Reviewed Yes Communication able to make needs known Mobility and Gait pt stated that she is modified independent with all mobilities and ambualtion using SPC outdoors but without AD indoors Social History Household Members none Living Arrangements RV Number of Floors (Floors) One Floor Number of Stairs To Enter/Railing? 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 M2 PT-IP Current Condition Start: 04/24/21 17:41 Freq: NEEDED Status: Active Protocol: Document 04/24/21 13:40 AB (Rec: 04/24/21 17:54 AB [email or web address]) Physical Therapy Current Condition Current Condition Evaluation Date 04/24/21 Treatment Diagnosis CHF; A-fib; difficulty in walking Onset Date 04/23/21 Precautions Other Precautions O2 sat, HR M3 PT-IP Subjective Start: 04/24/21 17:41 Freq: NEEDED Status: Active Protocol: Document 04/24/21 13:40 AB (Rec: 04/24/21 17:54 AB [email or web address]) Subjective Physical Therapy Visit Type Type Initial Evaluation Visit Start Time 13:40 Visit Stop Time 14:07 Total Visit Minutes 27 Number of BAND AID MACHINE OPERATOR Visits 0 Physical Therapy Visit Comments Patient Comments pt is agreeable to do PT Therapy Pain Assessment Pain Present Pain Present Denied Pain M4 PT-IP Mobility and Gait Start: 04/24/21 17:41 Freq: NEEDED Status: Active Protocol: Document 04/24/21 13:40 AB (Rec: 04/24/21 17:54 AB [email or web address]) PT-Bed Mobility Assessment Supine to Sit Supine to Sit Standby Assistance Sit to Supine Sit to Supine Standby Assistance PT-Transfer Assessment Sit to and From Stand Sit to and from Stand Standby Assistance Equipment Transfer Assistive Device None,Gait Belt Orthotic/Prosthetic Devices or Brace: No Transfers Transfer Destination Bed,Chair Transfer Technique ambulated Transfer Ability Level of Assist Contact Guard Assistance,1 Person Assistance,Use of Upper Extremities Comments Mobility Comments pt sitting on chair and agreeable to do PT. O2 sat with 3L/min O2 94-96% and HR 71-86 bpm. Pt was able to maintain O2 sat and HR throughout PT session. completed sit to stand SBA from the chair and ambulated without AD to the bed ~ 15 ft CGA. presents with unsteady antalgic gait and pt tends to hold on to counter/bed for support. (+) SOB but O2 sat 94% and HR 86 bpm. pt completed sit <>supine SBA. assessed ambulation using SPC and pt completed ~ 20 ft SBA. pt requested to sit on chair. positioned on chair. call light and table placed wtihin reach. Gait Assessment Gait Gait Assistance Required: Standby Assistance,Contact Guard Assist Distance (Feet) 20 Able to Maintain Weight Bearing Status Yes During Gait Assistive Devices Assistive Device None,Gait Belt,Straight Cane Orthotic/Prosthetic Devices or Brace: No Gait Deviations General Gait Pattern Antalgic,Step-to Gait Factors Limiting Gait Function Factors Limiting Gait Function Decreased Activity Tolerance, Decreased Strength,Poor Balance PT-Balance Assessment Sitting Balance and Reactions Static Sitting Balance Ability Good Dynamic Sitting Balance Ability Good Standing Balance and Reactions Static Standing Balance Ability Fair Dynamic Standing Balance Ability Fair Device Used SPC M5 PT-IP Objective Assessments Start: 04/24/21 17:41 Freq: NEEDED Status: Active Protocol: Document 04/24/21 13:40 AB (Rec: 04/24/21 17:54 AB [email or web address]) Orientation Orientation/Cognition Level of Alertness Alert Orientation Name,Age,Birthday,Month,Date, Year,Day of Week,Place, Situation Safety Awareness Understands Safety Issues Memory Description No Deficits Noted Gross Range of Motion Lower Extremity ROM Assessment Within Functional Limits Strength Lower Extremity Strength Assessment Within Functional Limits Coordination Assessment Gross Coordination Gross Coordination WNL Sensation Assessment Sensation Gross Sensation WNL Muscle Tone Muscle Tone WNL Yes M6 PT-IP Treatment Start: 04/24/21 17:41 Freq: NEEDED Status: Active Protocol: Document 04/24/21 13:40 AB (Rec: 04/24/21 17:54 AB [email or web address]) Physical Therapy Treatment Education Education Provided Safety M7 PT-IP Assessment and Plan Start: 04/24/21 17:41 Freq: NEEDED Status: Active Protocol: Document 04/24/21 13:40 AB (Rec: 04/24/21 17:54 AB [email or web address]) PT Summary Assessment and Plan Potential Rehabilitation Potential Fair Status of Condition at Evaluation Stable Summary Impairments Pain,ROM,Strength,Balance,Bed Mobility,Transfers,Gait, Activity Tolerance Assessment Summary pt requiring SBA to CGA with mobility but presents with decrease activity tolerance affecting mobility independence. will continue PT to improve activity tolerance, overall strength and ambulation safety. pt may benefit from cardiopulmonary outpt therapy. Goals Bed Mobility Goal Independent Transfer Goal Independent,Cane Gait Goal Independent,Cane Gait Distance 100 Other Goals improve ambulation without AD 100 ft mod I up/down 3 steps 2 pole support SBA Days to Meet Goals 5 Frequency of Treatment Frequency Of Treatment Once a Day Treatment Plan Physical Therapy Treatment Plan Bed Mobility Training,Transfer Training,Gait Training, Therapeutic Exercise,Balance Retraining,Discharge Planning, Neuromuscular Re-ed, Coordination Retraining Precautions Other Precautions O2 sat, HR Recommendations To Nursing Amount of Assist Needed 1 Person Assist Discharge Recommendations PT Discharge Recommendations Home with Assistance, Outpatient PT Transportation Needs at Discharge Private Vehicle
--- NOTE | 2021-04-24 16:27 | CM.DANOTE ---
DCP/Brief: Reviewed chart. Patient is a 66yr old female admitted to [facility] with SOB. Currently patient with AFIB with RVR. PCP is Dr. Zuniga. Primary payor is 1)Medicare 2)[facility]. CERTIFIED FRAUD EXAMINER attempted to meet with patient today. Due to testing procedures unable to see. Provider indicates that HH may be needed. Therapy evaluation pending. F2F left in red folder for provider to sign if needed. P: Admit when medically stable. PIPPA Mckeon Discharge Planning/Care Management CM Discharge Assessment Start: 04/24/21 16:20 Freq: Status: Active Protocol: Document 04/24/21 16:20 KJS (Rec: 04/24/21 16:27 KJS [id number]) Discharge Planning Assessment Assigned Java Consultant PIPPA Mckeon Contact Information Rylee Guerrero (brother0 ph# [phone] Advance Directives? No History Provided By Medical Record Prior Living Arrangements RV Household Members none Independent with ADL's Yes: Per provider at baseline Is patient alert and oriented? Yes Caregiver for Another No Comment walking stick with rubber tip Barriers to Discharge No Additional Comment Provider requesiting HH if indicated. Therapy evalution pending. If patient plan is home with home health No : Has signed face to face form been completed? Comment F2F for provider to sign in red folder. Whiteboard Updated in Patient Room with No name and ext. # of Java Consultant Review Status In Process Next Review Type Continued Stay Review
[2021-04-24] MEDS: SODIUM CHLORIDE 0.9% FLUSH 10 ML IV (20:54)
[2021-04-24] MEDS: PRAMIPEXOLE 1 MG TABLET PO (20:58)
[2021-04-25] VITALS (7 sets, daily range): BP systolic 125–146; BP diastolic 52–72; PULSE 66–82; RESP 16–24; TEMP 35.9–36.8; O2SAT 93–97
[2021-04-25] MEDS: ACETAMINOPHEN 325 MG TABLET 650 MG PO ×2 (03:52→11:34)
[2021-04-25 06:36] LABS: BUN Creatinine Ratio 33.3 (6-22); Blood Urea Nitrogen 43 mg/dL (7-17); Calcium 8.6 mg/dL (8.4-10.2); Carbon Dioxide 37 mmol/L (22-32); Chloride 96 mmol/L (98-107); Estimated Glomerular Filt Rate 41.5 mL/min (>60); Glucose 131 mg/dL (80-110); HEMOLYSIS < 15 (0-50); Potassium 4.8 mmol/L (3.4-5.1); Sodium 136 mmol/L (137-145)
--- NOTE | 2021-04-25 07:03 | P.DS_ITS ---
History of Present Illness History of Present Illness Chief complaint: difficulty breathing Narrative: 66-year-old female with a past medical history of congestive heart failure type 2 diabetes essential hypertension obesity with a BMI of 63 sleep apnea restless leg syndrome. Patient comes in today with complaints of feeling shortness of breath. Patient states she was admitted last year to the hospital with shortness of breath. She was started on a couple of medications and was told that she had heart failure. Patient over the last few weeks to a month or so has noticed that she has had increasing difficulty with breathing and feeling more swollen especially in her feet and ankles she takes daily Lasix. Patient increased her dose of Lasix and did not really notice any improvement of her breathing. She felt like symptoms had gotten worse in the last 48 hours. She woke up last night in the middle the night with shortness of breath. She said she felt like she was having a hard of time catching her breath that she needed to come to the emergency department. She states that has been progressive. The shortness of breath was not associated with difficulty to with chest pain. She has not had any problems that she is aware of her heart beating fast. She was not appreciating any lightheaded and dizziness. She has some daily fatigue. She has not had any headaches. She has not had any fevers or chills or cough or congestion. In the emergency department she had a workup blood pressure was quite high to 180 systolic her pulse was quite tachycardic with a 140-120 heart rate. And she was found to be in atrial fibrillation which was new for her. White blood cell count mild anemia PaO2 on ABG is 72 O2 sats of 95% normal electrolytes normal kidney function cardiac troponin was normal CK-MB was normal BNP was elevated at 445 and procalcitonin was 0.5. We added on a thyroid which was normal as well as a magnesium and SARS-CoV-2 test was negative. Chest x-ray shows fluid overload pattern with CHF prominent heart size. On review of patient's record patient had an echocardiogram about a year and 3 months ago showed left ventricular hypertrophy ejection fraction of 60-65% and no significant valvular heart disease. Discharge Providers Provider Date of admission: 04/23/21 08:58 Discharge Date: 04/25/21 Primary care physician: Tim Zuniga MD Consults: 04/23/21 06:30 Consult to Respiratory Therapy Evaluate & Treat Comment: Physician Instructions: Evaluate and treat 04/24/21 08:35 Consult to Physical Therapy Evaluate & Treat Comment: ambulation Physician Instructions: Evaluate and Treat Discharge provider: Shahriar Rausch MD Summary Hospital Course Discharge Diagnosis: New onset atrial fibrillation with rapid ventricular response Acute systolic heart failure Acute kidney injury Morbid obesity BMI 63 Essential hypertension Obstructive sleep apnea Hospital Course: Patient was admitted to the hospital with rapid atrial f ibrillation fluid overload due to congestive heart failure. Patient was initially started on Cardizem drips. Patient had a workup for underlying causes of atrial fibrillation including hypothyroidism electrolyte abnormalities and structural heart disease. Patient had a repeat echocardiogram which was structurally normal with no significant valvular heart disease. Patient was placed on anticoagulation with Xarelto. Her aspirin was stopped. She was transition from her Cardizem drips to oral metoprolol. Over the ensuing day and half her heart rate and blood pressure were controlled with appropriate medication. Patient eventually converted out of atrial fibrillation and now is in normal sinus rhythm. Patient's laboratory testing revealed elevated BNP elevated BUN and creatinine due to her systolic heart failure and diuresis Status at Discharge Cognitive/behavioral status at discharge: oriented Functional status at discharge: independent ambulation Overall status at discharge: patient is back to baseline Exam Vital Signs (past 8 hours): - 04/25/21 00:00 04/25/21 03:41 Temperature 98.2 F 96.6 F L Pulse Rate 82 66 Respiratory Rate 24 18 Blood Pressure 146/64 H 141/72 H Pulse Oximetry 97 93 Oxygen Delivery Method Nasal Cannula Oxygen Flow Rate 2 Objective Labs Result Diagrams: 04/24/21 06:16 04/25/21 06:00 Labs: Laboratory Results - last 24 hr 04/25/21 06:00 Sodium 136 L Potassium 4.8 Chloride 96 L Carbon Dioxide 37 H BUN 43 H Creatinine 1.29 H Estimated GFR 41.5 L BUN/Creatinine Ratio 33.3 H Glucose 131 H Calcium 8.6 PFSH Medical History Allergies Anemia (1993) Ankle pain (~2019) Arthritis (1999) Asthma (~1970) BMI 60.0-69.9, adult Depression Diabetes type 2, controlled Essential hypertension (04/08/16) Foot pain (2010) Gout (1998) Hayfever Heart murmur (1999) Insomnia (04/08/16) Knee pain (2009) Morbid obesity Obesity hypoventilation syndrome Other osteoarthritis involving multiple joints (05/26/17) Ovarian cyst (1975) Oxygen dependent (~2019) RLS (restless legs syndrome) (2012) Sleep apnea (2011) Urinary incontinence (2013) Surgical History Anesthesia complication LAP-BAND surgery status (2012) Status post arthroscopy (2000) Status post cholecystectomy (1998) Status post hysterectomy (1995) Status post right foot surgery (2009) Family History Father Diabetes mellitus Heart disease Hypertension High cholesterol Renal failure Grandfather Heart disease Heart attack Grandmother Cancer Breast cancer Mother Diabetes mellitus Heart disease Heart failure Hypertension Grandfather Heart disease Dementia Grandmother Cancer Breast cancer Colon cancer Ovarian cancer Sister Age: 59 Fibromyalgia Bone cancer Brother Hyperlipidemia Sister Hypertension Social History household members: none Smoking Status: Never smoker alcohol intake: former Discharge Plan Discharge Plan Patient Disposition: Home Provider Discharge Comment: Follow-up with Dr. Zuniga in 1 week Discharge orders & Medications Prescriptions: New metoprolol succinate 50 mg Tablet Extended Release 24 Hr 50 mg PO DAILY Qty: 30 RF: 0 Eliquis 5 mg Tablet 5 mg PO BID Qty: 30 RF: 0 Continued melatonin 3 MG tablet 5 mg PO HS Qty: 0 RF: 0 ascorbic acid (vitamin C) 500 MG tablet 1,000 mg PO QDAY Qty: 0 RF: 0 multivitamin [Multiple Vitamins] 1 EACH tablet 1 tab PO QDAY Qty: 0 RF: 0 furosemide 40 mg tablet 40 mg PO DAILY Qty: 90 RF: 1 losartan 25 mg tablet 50 mg PO BID Qty: 120 RF: 0 pramipexole 0.5 mg tablet 0.5 - 2 mg PO BEDTIME PRN (Reason: restless leg(s)) Qty: 120 RF: 0 spironolactone 25 mg tablet 50 mg PO BID Qty: 120 RF: 0 trazodone 100 mg tablet 100 mg PO BEDTIME Qty: 30 RF: 0 albuterol sulfate 90 mcg/actuation HFA aerosol inhaler 2 puff INHALATION Q4H PRN (Reason: wheezing) RF: 0 Discontinued aspirin 81 MG tablet,delayed release (DR/EC) 81 mg PO QDAY Qty: 30 RF: 0 naproxen sodium [Aleve] 220 mg Tablet 440 mg PO BID RF: 0 Follow up/Referrals: Tim Zuniga MD [Primary Care Provider] - Visit Report/Discharge Packet Visit Report Forms: Patient Portal/API, Stroke Signs & Symptoms Discharge Data Primary Care Provider: Tim Zuniga
--- NOTE | 2021-04-25 08:12 | CM.DPC ---
Addendum entered by PIPPA Willingham 04/25/21 08:49: ADD: After d/c written, determined that HH would be beneficial for pt as she is below baseline and does not have much endurance. signed F2F and orders and SW met bedside with pt and explained role and she confirms she lives at home alone and has home oxygen through [employer] at baseline and denies any hx of HH but states she is fatiguing quickly and is homebound. SW also spoke to SQL DATA ANALYST bedside when came to work with pt this morning to do stairs. SW provided the HH Choice List for [facility] and no preference so SW called [facility] based on Vendor Calendar and they confirm they can accept but are about 4-5 days out from start of care. SW updated pt and provided brochure and she is agreeable. ARNALDO faxed referral and signed F2F and MD orders to [facility] to review. Pt confirms that her sister bernardino will provide transport home this morning. ARNALDO updated RN. BF Original Note: DCP Discharge Home Per MD, pt has returned to normal sinus rhythm and back to baseline and medically stable to d/c home today with no identified barriers to discharge. Per PT, recommending safe d/c home with outpt PT. Per RN, no concerns at this time. Plan: Patient to d/c home today via family POV and no further SW needs at this time. PIPPA Willingham
--- NOTE | 2021-04-25 08:34 | PT.IPTN ---
Current Diagnoses Unspecified atrial fibrillation (04/23/21) Physical Therapy Treatment Note M2 PT-IP Current Condition Start: 04/24/21 17:41 Freq: NEEDED Status: Active Protocol: Document 04/24/21 13:40 AB (Rec: 04/24/21 17:54 AB [id number]) Physical Therapy Current Condition Current Condition Evaluation Date 04/24/21 Treatment Diagnosis CHF; A-fib; difficulty in walking Onset Date 04/23/21 Precautions Other Precautions O2 sat, HR M3 PT-IP Subjective Start: 04/24/21 17:41 Freq: NEEDED Status: Active Protocol: Document 04/25/21 08:07 SP (Rec: 04/25/21 09:48 SP [id number]) Subjective Physical Therapy Visit Type Type Treatment Note Visit Start Time 08:07 Visit Stop Time 08:34 Total Visit Minutes 27 Notes Vital taken during tx: seated at rest: BP 134/69, HR 62, SaO2 95% on 2L during mobility: SaO2 92%, HR low 70s Number of HEEL NAIL RASPER Visits 1 Physical Therapy Visit Comments Patient Comments pt is agreeable to do PT Patient Goals return home with HHPT and wanting new portable O2 that can carry instead of cart pulling uses right now. Therapy Pain Assessment Pain Present Pain Present Pain Reported Location right knee/ankle Intensity 4 Scale Used Numeric (0 - 10) Description Aching,Chronic,With Movement Pain Behaviors Facial Grimacing Pain Management Techniques Re-positioning,Timing of Activity with Medications M4 PT-IP Mobility and Gait Start: 04/24/21 17:41 Freq: NEEDED Status: Active Protocol: Document 04/25/21 08:07 SP (Rec: 04/25/21 09:48 SP [id number]) PT-Transfer Assessment Sit to and From Stand Sit to and from Stand Standby Assistance Equipment Transfer Assistive Device Gait Belt,Straight Cane Orthotic/Prosthetic Devices or Brace: No Transfers Transfer Destination Chair,Wheelchair Transfer Technique ambulated managing portable O2 tank then SPC Transfer Ability Level of Assist Standby Assistance,Contact Guard Assistance,Use of Upper Extremities Comments Mobility Comments Sit>stand SBA, gait to hallway w/c 20 ft x2 while self managing portable O2 tank to assimuate home use, lateral antalgic gait w/ knee pain but states was the same pre admission. Pt ascended descended 3 stairs using L HR and R SPC step to patterning ascend and retro descending step to as assimulates walking stick uses at home CG> SBA. Pt walked further post stairs 30 ft has distance at home from parking area sBA using SPC and managing portable O2 tank. Required seated rest in w/c at that distance due to decrease strength. Pt wheeled back to room, walked to chair using SPC and portable O2 sBA no LOB, stable. Pt was seated in chair with call light and all needs in reach before left . Pt maintained 90s on 2L O2 throughout mobility, cued at times for proper breath due to + SOB. HEEL NAIL RASPER relayed info to nurse and care mgt and recommended contacting respiratory for support if needed regarding wanting new smaller carrying portable O2 tank. Pt states has sister to assist her and will provide transportation when can DC. Gait Assessment Gait Gait Assistance Required: Standby Assistance Distance (Feet) 30 Able to Maintain Weight Bearing Status Yes During Gait Assistive Devices Assistive Device None,Gait Belt,Straight Cane Orthotic/Prosthetic Devices or Brace: No Gait Deviations General Gait Pattern Antalgic,Step-to Gait Factors Limiting Gait Function Factors Limiting Gait Function Decreased Activity Tolerance, Decreased Strength,Respiratory Distress Comments Gait Comments see mobility comments Stair Climbing Assessment Evaluation Level of Assist On Stairs Standby Assistance,Contact Guard Assistance Devices Stair Climbing Assistive Devices Straight Cane,Left Railing Technique/Endurance Stair Climbing Direction Ascend and Descend Stair Climbing Technique Step to Step Number of Steps Climbed 3 Stair Climbing Set # Repetitions (reps) 1 Comments Stair Climbing Comments see mobility comments PT-Balance Assessment Sitting Balance and Reactions Static Sitting Balance Ability Normal Dynamic Sitting Balance Ability Normal Standing Balance and Reactions Static Standing Balance Ability Good Dynamic Standing Balance Ability Fair Device Used SPC M5 PT-IP Objective Assessments Start: 04/24/21 17:41 Freq: NEEDED Status: Active Protocol: Document 04/24/21 13:40 AB (Rec: 04/24/21 17:54 AB [id number]) Orientation Orientation/Cognition Level of Alertness Alert Orientation Name,Age,Birthday,Month,Date, Year,Day of Week,Place, Situation Safety Awareness Understands Safety Issues Memory Description No Deficits Noted Gross Range of Motion Lower Extremity ROM Assessment Within Functional Limits Strength Lower Extremity Strength Assessment Within Functional Limits Coordination Assessment Gross Coordination Gross Coordination WNL Sensation Assessment Sensation Gross Sensation WNL Muscle Tone Muscle Tone WNL Yes M6 PT-IP Treatment Start: 04/24/21 17:41 Freq: NEEDED Status: Active Protocol: Document 04/25/21 08:07 SP (Rec: 04/25/21 09:48 SP [id number]) Physical Therapy Treatment Education Education Provided Safety M7 PT-IP Assessment and Plan Start: 04/24/21 17:41 Freq: NEEDED Status: Active Protocol: Document 04/25/21 08:07 SP (Rec: 04/25/21 09:48 SP [id number]) PT Summary Assessment and Plan Potential Rehabilitation Potential Fair Status of Condition at Evaluation Stable Summary Impairments Pain,ROM,Strength,Balance,Bed Mobility,Transfers,Gait, Activity Tolerance Progress Towards Goals Progressing Toward Goals,Slow Progress due to Activity Tolerance Assessment Summary Pt required SBA during all activity using SPC and portable O2 tank self managed. completed gait 30 ft max distance due to decreased strength and activity tolerance, distance has to peform at home. Completed stair mgt. Pt is ok to return home with sister to assist as needed when medically cleared. Recommending HHPT to for increased strengthening, endurance for functional independence. Goals Bed Mobility Goal Independent Transfer Goal Independent,Cane Gait Goal Independent,Cane Gait Distance 100 Other Goals improve ambulation without AD 100 ft mod I up/down 3 steps 2 pole support SBA Days to Meet Goals 5 Frequency of Treatment Frequency Of Treatment Once a Day Treatment Plan Physical Therapy Treatment Plan Bed Mobility Training,Transfer Training,Gait Training, Therapeutic Exercise,Balance Retraining,Discharge Planning, Neuromuscular Re-ed, Coordination Retraining Other Recommendations and Next Treatment standing balance activity, Focus gait distance LRAD. Precautions Other Precautions O2 sat, HR Discharge Recommendations PT Discharge Recommendations Home with Assistance,Home Health Transportation Needs at Discharge Private Vehicle
[2021-04-25] MEDS: POTASSIUM CHLORIDE 20 MEQ TAB PO (09:00)
[2021-04-25] MEDS: SODIUM CHLORIDE 0.9% FLUSH 10 ML IV (09:01)
[2021-04-25] MEDS: FUROSEMIDE 40 MG/4 ML VIAL IV (09:01)
[2021-04-25] MEDS: METOPROLOL ER 50 MG TABLET PO (09:03)
[2021-04-25] MEDS: SPIRONOLACTONE 25 MG TABLET 50 MG PO (09:03)
[2021-04-25] MEDS: APIXABAN 5 MG TABLET PO (09:03)
[2021-04-25] MEDS: LOSARTAN 50 MG TABLET PO (09:04)
--- NOTE | 2021-04-25 13:23 | PC.NURSE ---
Pt A&O x3, pleasant. VSS, afebrile. NSR on telemetry today. MD at bedside evaluating patient and clearing her for discharge home. Pt is cleared by OT this a.m. She verbalizes understanding of discharge medications, home health referral, medications, and follow up instructions. RT assisted with patient request for submitting DME for portable oxygen. Pt is escorted with all of her belongings via w/ch to private vehicle with her brother at approximately 1230.
== END 2021-04-25 12:30 | disposition home or self-care (01) | DRG 308 ==
LOC: ED 08:08 → AC 09:05
PROVIDERS: Emergency Medicine; Admitting Provider Family Medicine; Emergency Provider Emergency Medicine; Family Provider Family Medicine; PCP Internal Medicine; Referring Provider Emergency Medicine; Visit Provider Family Medicine
DX: I48.91 Unspecified atrial fibrillation (principal); J96.00 Acute respiratory failure, unspecified whether with hypoxia or hypercapnia; I50.21 Acute systolic (congestive) heart failure; Z68.43 Body mass index [BMI] 50.0-59.9, adult; E11.9 Type 2 diabetes mellitus without complications; E66.01 Morbid (severe) obesity due to excess calories; G47.30 Sleep apnea, unspecified; G25.81 Restless legs syndrome; M25.571 Pain in right ankle and joints of right foot; Z20.822 Contact with and (suspected) exposure to COVID-19
CPT/HCPCS: 36415; 36600; 71045; 73610; 80048; 80053; 81003; 82550; 82805; 82962; 83036; 83605; 83735; 83880; 84145; 84443; 84484; 85025; 85610; 85730; 87040; 87635; 93005; 93306; 94760; 94762; 96365; 96366; 96375; 97116; 97161; 99285; C9803; J1940

== ENCOUNTER → 2021-08-01 15:38 | Outpatient (CLI) | payer MEDICARE, OTHER, SELFPAY ==
[2021-08-01 15:35] VITALS: BMI 63.3
[2021-08-01 17:34] LABS: Blood Urea Nitrogen 36 mg/dL (7-17); Calcium 9.6 mg/dL (8.4-10.2); Carbon Dioxide 39 mmol/L (22-32); Chloride 94 mmol/L (98-107); Estimated Glomerular Filt Rate 43.4 mL/min (>60); Glucose 103 mg/dL (80-110); HEMOLYSIS < 15 (0-50); Magnesium 1.7 mg/dL (1.6-2.3); Potassium 4.9 mmol/L (3.4-5.1); Sodium 140 mmol/L (137-145)
== END ==
PROVIDERS: Family Provider Family Medicine; PCP Internal Medicine; Referring Provider Internal Medicine; Visit Provider Internal Medicine
DX: I10 Essential (primary) hypertension (principal); I50.30 Unspecified diastolic (congestive) heart failure
CPT/HCPCS: 36415; 80048; 83735

== ENCOUNTER 2021-08-04 06:09 | Emergency (ER) | payer MEDICARE, OTHER, SELFPAY ==
[2021-08-01 15:35] VITALS: BMI 63.3
[2021-08-04 06:11] VITALS: BP 177/90; PULSE 70; RESP 24; TEMP 36.6; O2SAT 93; BMI 61.3
--- NOTE | 2021-08-04 06:17 | ED.GENADULT ---
HPI - General Adult General Chief complaint: Extremity Problem,Nontraumatic Stated complaint: right foot pain x1 day Time Seen by Provider: 08/04/21 06:12 History of Present Illness HPI narrative: 66-year-old woman with a history of diabetes, hypertension, congestive heart failure, morbid obesity prior history of gout who presents with 24 hours of severe right toe and 1st metatarsal joint pain. She states that feels similar to prior gout episodes however this episode seemed to start more on the toe than the joint. She finds that anything touching even a shoe or a sheet is uncomfortable. She describes no trauma. She states in the past she has had luck with indomethacin, colchicine, steroids, hydrocodone. She felt that the indomethacin was the most effective of each of those treatments. She notes that she is on 3 L of oxygen at home and aside from the significant foot pain does not have any new or worsening symptoms. She does not describe worsening dyspnea or changed orthopnea. She is having no palpitations or chest pain, no vomiting, abdominal pain or diarrhea. No increased swelling or change to lower extremity edema. No new rashes or erythema in the lower extremities. Related Data Home Medications Medication Instructions Recorded Confirmed ascorbic acid (vitamin C) 500 mg 1,000 mg PO QDAY #0 tab 04/08/16 08/01/21 tablet melatonin 3 mg tablet 5 mg PO HS #0 tab 04/08/16 08/01/21 multivitamin (Multiple Vitamins) 1 tab PO QDAY #0 tab 04/08/16 08/01/21 albuterol sulfate 90 mcg/actuation 2 puff INHALATION Q4H PRN 04/24/21 08/01/21 aerosol inhaler Previous Rx's Medication Instructions Recorded apixaban 5 mg tablet (Eliquis) 5 mg PO BID #180 tab 05/09/21 furosemide 40 mg tablet 40 mg PO DAILY #90 tab 05/09/21 metoprolol succinate 50 mg 50 mg PO DAILY #90 tab 05/09/21 tablet,extended release 24 hr pramipexole 0.5 mg tablet 0.5 - 2 mg PO BEDTIME PRN #360 tab 05/09/21 spironolactone 25 mg tablet 50 mg PO BID #360 tab 05/09/21 trazodone 100 mg tablet 100 mg PO BEDTIME #90 tab 05/09/21 losartan 50 mg tablet 50 mg PO BID #180 tab 05/12/21 hydrocodone 5 mg-acetaminophen 325 1 tab PO Q8HR PRN 3 Days #12 tab 08/04/21 mg tablet Allergies Allergy/AdvReac Type Severity Reaction Status Date / Time codeine [CODEINE] Allergy Intermediate GASTRIC Verified 08/04/21 06:18 UPSET Sulfa (Sulfonamide Allergy Intermediate RASH/HIVES Verified 08/04/21 06:18 Antibiotics) [SULFA (SULFONAMIDE ANTIBIOTICS)] Review of Systems Review of Systems Narrative: Remainder of complete review of systems is otherwise unremarkable except for that included in the HPI. Patient History Medical History (Updated 08/04/21 @ 06:32 by Michelle Byrnes MD) Allergies Anemia (1993) Ankle pain (~2019) Arthritis (1999) Asthma (~1969) BMI 60.0-69.9, adult Depression Diabetes type 2, controlled Essential hypertension (04/08/16) Foot pain (2010) Gout (1998) Hayfever Heart failure with preserved ejection fraction Heart murmur (1999) Insomnia (04/08/16) Knee pain (2009) Morbid obesity Obesity hypoventilation syndrome Other osteoarthritis involving multiple joints (05/26/17) Ovarian cyst (1975) Oxygen dependent (~2019) Paroxysmal atrial fibrillation RLS (restless legs syndrome) (2012) Sleep apnea (2011) Urinary incontinence (2013) Surgical History Anesthesia complication LAP-BAND surgery status (2012) Status post arthroscopy (2000) Status post cholecystectomy (1998) Status post hysterectomy (1995) Status post right foot surgery (2009) Family History Father Diabetes mellitus Heart disease Hypertension High cholesterol Renal failure Grandfather Heart disease Heart attack Grandmother Cancer Breast cancer Mother Diabetes mellitus Heart disease Heart failure Hypertension Grandfather Heart disease Dementia Grandmother Cancer Breast cancer Colon cancer Ovarian cancer Sister Age: 59 Fibromyalgia Bone cancer Brother Hyperlipidemia Sister Hypertension Social History household members: none Smoking Status: Never smoker alcohol intake: former Smoking Status: Never smoker Substance Use Type: does not use Exam Narrative Exam Narrative: General: Alert appropriate, morbidly obese with significant mobility issues secondary to that. Significantly dyspneic after getting into bed but notes she is on 3 L of oxygen. Much more comfortable after oxygen is applied Respiratory: Able to speak in full sentences, no obvious respiratory distress Skin: No obvious rashes, warm and dry Neurologic: Grossly intact no obvious asymmetries or abnormalities Psych: appropriate insight and affect, cooperative Extremity: She has 1+ bilateral lower extremity edema that is symmetrical. There is no warmth, redness, obvious trauma or infected looking area to the right foot. She is tender over the 1st metatarsal joint and into the pad of the great toe on the right side. She comes in without a shoe on that foot due to the tenderness. Initial Vital Signs Initial Vital Signs: Vital Signs Temperature 97.9 F 08/04/21 06:11 Pulse Rate 70 08/04/21 06:11 Respiratory Rate 24 08/04/21 06:11 Blood Pressure 177/90 H 08/04/21 06:11 Pulse Oximetry 93 08/04/21 06:11 Course Orders Ordered: Discontinued Medications Hydrocodone Bitart/Acetaminophen (Hydrocodone/Acet 5/325 Prepack) 1 bottle MISC SEEINSTR ONE Stop: 08/04/21 06:31 Last Admin: 08/04/21 06:34 Dose: 1 bottle Documented by: MARIE Colchicine (Colchicine 0.6 Mg Tablet) 1.2 mg PO NOW ONE Stop: 08/04/21 06:26 Last Admin: 08/04/21 06:34 Dose: 1.2 mg Documented by: MARIE Colchicine (Colchicine 0.6 Mg Tablet) 0.6 mg PO NOW ONE Stop: 08/04/21 07:26 Last Admin: 08/04/21 06:35 Dose: 0.6 mg Documented by: MARIE Medical Decision Making [facility] [place] Narrative Medical decision making narrative: 66-year-old woman presents with what very much appears to be a gout flare in the right great toe and 1st metatarsal joint. She was seen by her primary care physician 3 days ago for routine visit for heart failure and hypertension with no change to medications. She had chemistries done 3 days ago that were unremarkable. She currently is on apixaban so indomethacin is not going to be appropriate. Given the rather classic history as well as physical exam with blood work 3 days ago and no evidence of infection cellulitis or other complications at this time including deep venous thrombosis. Will go ahead and treat with colchicine 1.2 mg now and then 0.6 mg in one hour Discharge Plan Departure Patient Disposition: Home Clinical Impression: Gout Instructions: Gout Activity Restrictions/Additional Instructions: Thank you for coming in today I am sorry that you have been suffering all night. This does appear to be an acute gout exacerbation. I am seeing no evidence of infection, trauma or blood clots in your legs. Because of your apixaban, a blood thinner, we cannot give you indomethacin which you said has worked well in the past. The 2nd option is colchicine. You have been given 2 pills in the ER and will need to take 1 pill an hour after the 1st dose. Please give the colchicine a chance to work but if you are still having discomfort you can use some hydrocodone. With your sleep apnea and breathing issues you need to be very careful with using any type of narcotic. I would strongly recommend sleeping sitting propped upright if you do choose to use the hydrocodone. If you having worsening symptoms or new complaints, I would recommend that you call Dr. Zuniga is office and if it is more severe then you can always return to the emergency department I hope you feel better Prescriptions: New hydrocodone-acetaminophen 5-325 mg tablet 1 tab PO Q8HR PRN (Reason: pain) 3 Days Qty: 12 0RF No Action melatonin 3 MG tablet 5 mg PO HS Qty: 0 0RF ascorbic acid (vitamin C) 500 MG tablet 1,000 mg PO QDAY Qty: 0 0RF multivitamin [Multiple Vitamins] 1 EACH tablet 1 tab PO QDAY Qty: 0 0RF losartan 50 mg tablet 50 mg PO BID Qty: 180 3RF Eliquis 5 mg tablet 5 mg PO BID Qty: 180 3RF metoprolol succinate 50 mg tablet extended release 24 hr 50 mg PO DAILY Qty: 90 3RF pramipexole 0.5 mg tablet 0.5 - 2 mg PO BEDTIME PRN (Reason: restless leg(s)) Qty: 360 3RF Label Comments: Pt reports she takes 2 Q HS spironolactone 25 mg tablet 50 mg PO BID Qty: 360 3RF trazodone 100 mg tablet 100 mg PO BEDTIME Qty: 90 3RF furosemide 40 mg tablet 40 mg PO DAILY Qty: 90 3RF albuterol sulfate 90 mcg/actuation HFA aerosol inhaler 2 puff INHALATION Q4H PRN (Reason: wheezing) 0RF Referrals: Tim Zuniga MD [Primary Care Provider] -
[2021-08-04] MEDS: COLCHICINE 0.6 MG TABLET 1.2 MG PO (06:34)
[2021-08-04] MEDS: HYDROCODONE/ACET 5/325 PREPACK 1 BOTTLE MISC (06:34)
[2021-08-04] MEDS: COLCHICINE 0.6 MG TABLET PO (06:35)
== END 2021-08-04 06:46 | disposition home or self-care (01) ==
PROVIDERS: Emergency Provider Emergency Medicine; Family Provider Family Medicine; PCP Internal Medicine
DX: M10.9 Gout, unspecified (principal); Z79.01 Long term (current) use of anticoagulants
CPT/HCPCS: 99283

== ENCOUNTER 2021-10-15 04:17 | Emergency (ER) | payer MEDICARE, OTHER, SELFPAY ==
[2021-08-01 15:35] VITALS: BMI 63.3
[2021-10-15 04:35] VITALS: BP 173/82; PULSE 86; RESP 22; TEMP 36.3; O2SAT 96; BMI 56.5
--- NOTE | 2021-10-15 04:36 | DI.RAD.S_ITS ---
PROCEDURE: XR ANKLE LT MIN 3V INDICATIONS: severe lateral ankle pain TECHNIQUE: Three views of the ankle were acquired. COMPARISON: [facility], CR, XR ANKLE RT MIN 3V, 04/23/2021, 10:35. FINDINGS: Bones: No fractures or dislocations. Ankle mortise is normally aligned. No suspicious bony lesions. Small plantar calcaneal spur. Minor posterior tibiotalar spurring. Soft tissues: Mild periarticular soft tissue swelling. Moderate thickening of the distal Achilles tendon with small focal calcification. IMPRESSION: 1. No definite acute fractures. 2. Distal Achilles tendon thickening and trace calcification. Consider chronic Achilles tendinopathy. 3. Concordant with preliminary report. Dictated by: Emilie Souza M.D. on 10/15/2021 at 11:07 Approved by: Emilie Souza M.D. on 10/15/2021 at 11:09
--- NOTE | 2021-10-15 04:41 | ED.LOWEXIN ---
HPI - Extremity Injury (Lower) General Chief Complaint: Extremity Problem,Nontraumatic Stated Complaint: left ankle pain Time Seen by Provider: 10/15/21 04:21 History of Present Illness HPI Narrative: 66-year-old female nonsmoker with history of heart failure, restless leg and diabetes presents with her brother and a chief complaint of increasing left ankle pain over the past 24 hours. She denies any specific or memorable event or injury. She states the pain is increasingly severe and certainly worse with ambulation. Improves with rest. She denies any knee or hip pain. She denies systemic complaints such as fever, chills nor nausea or vomiting. She denies any history of the same. She denies redness, warmth or red streaks. She has no numbness, tingling or weakness Related Data Home Medications Medication Instructions Recorded Confirmed ascorbic acid (vitamin C) 500 mg 1,000 mg PO QDAY #0 tab 04/08/16 08/01/21 tablet melatonin 3 mg tablet 5 mg PO HS #0 tab 04/08/16 08/01/21 multivitamin (Multiple Vitamins) 1 tab PO QDAY #0 tab 04/08/16 08/01/21 albuterol sulfate 90 mcg/actuation 2 puff INHALATION Q4H PRN 04/24/21 08/01/21 aerosol inhaler Previous Rx's Medication Instructions Recorded apixaban 5 mg tablet (Eliquis) 5 mg PO BID #180 tab 05/09/21 furosemide 40 mg tablet 40 mg PO DAILY #90 tab 05/09/21 metoprolol succinate 50 mg 50 mg PO DAILY #90 tab 05/09/21 tablet,extended release 24 hr pramipexole 0.5 mg tablet 0.5 - 2 mg PO BEDTIME PRN #360 tab 05/09/21 spironolactone 25 mg tablet 50 mg PO BID #360 tab 05/09/21 trazodone 100 mg tablet 100 mg PO BEDTIME #90 tab 05/09/21 losartan 50 mg tablet 50 mg PO BID #180 tab 05/12/21 hydrocodone 5 mg-acetaminophen 325 1 tab PO Q4-6H PRN #10 tab 10/15/21 mg tablet ketorolac 10 mg tablet 10 mg PO Q6H PRN #14 tab 10/15/21 Allergies Allergy/AdvReac Type Severity Reaction Status Date / Time codeine [CODEINE] Allergy Intermediate GASTRIC Verified 08/04/21 06:18 UPSET Sulfa (Sulfonamide Allergy Intermediate RASH/HIVES Verified 08/04/21 06:18 Antibiotics) [SULFA (SULFONAMIDE ANTIBIOTICS)] Review of Systems Review of Systems Narrative: GENERAL: Denies chills, fatigue, malaise, fever, sweats. HEENT: Denies sinus pain, ear pain, sore throat, difficulty swallowing, dizziness. RESPIRATORY: Denies dyspnea, cough, wheezing, hemoptysis, sputum. CARDIOVASCULAR: Denies chest pain, palpitations, orthopnea, edema, GASTROINTESTINAL: Denies nausea, vomiting, abdominal pain, diarrhea, constipation, melena. : Denies dysuria, frequency, incontinence, hematuria, urinary retention. MUSCULOSKELETAL: See HPI SKIN: Denies rash, skin lesions, or other NEUROLOGIC: Denies weakness, headache, numbness, change in speech, confusion, seizures, incoordination. PSYCHIATRIC: No concerning psychosocial issues. 12 point review of systems is negative except for those stated above Patient History Medical History Allergies Anemia (1993) Ankle pain (~2019) Arthritis (1999) Asthma (~1970) BMI 60.0-69.9, adult Depression Diabetes type 2, controlled Essential hypertension (04/08/16) Foot pain (2010) Gout (1998) Hayfever Heart failure with preserved ejection fraction Heart murmur (1999) Insomnia (04/08/16) Knee pain (2009) Morbid obesity Obesity hypoventilation syndrome Other osteoarthritis involving multiple joints (05/26/17) Ovarian cyst (1975) Oxygen dependent (~2019) Paroxysmal atrial fibrillation RLS (restless legs syndrome) (2012) Sleep apnea (2011) Urinary incontinence (2013) Surgical History Anesthesia complication LAP-BAND surgery status (2012) Status post arthroscopy (2000) Status post cholecystectomy (1998) Status post hysterectomy (1995) Status post right foot surgery (2009) Family History Father Diabetes mellitus Heart disease Hypertension High cholesterol Renal failure Grandfather Heart disease Heart attack Grandmother Cancer Breast cancer Mother Diabetes mellitus Heart disease Heart failure Hypertension Grandfather Heart disease Dementia Grandmother Cancer Breast cancer Colon cancer Ovarian cancer Sister Age: 59 Fibromyalgia Bone cancer Brother Hyperlipidemia Sister Hypertension Social History household members: none Smoking Status: Never smoker alcohol intake: former Smoking Status: Never smoker Substance Use Type: does not use Exam Narrative Exam Narrative: GEN: AOx3 and in mild distress EYES: Pupils are equal, round, and reactive to light and accommodation. Extraoccular muscles are intact bilaterally. There is no subconjunctival hemorrhage or exudate. CHEST: Lungs are clear to auscultation bilaterally and free of wheezes, rales, or rhonchi. Heart rate is regular rhythm, there are no murmurs, clicks, rubs, or gallops. There is no chest wall tenderness. ABD: Abdomen is soft and nontender. There is no guarding or rebound. Bowel sounds are normal in all 4 quadrants. There is no mass or organomegaly. EXT: Full but painful range of motion of the left ankle, no obvious swelling, most tender to palpation just distal to lateral malleolus. No redness, warmth or swelling, low lymphangitis. This is closed, isolated and neurovascularly intact SKIN: Warm, pink, and dry. No erythema or rash Initial Vital Signs Initial Vital Signs: Vital Signs Temperature 97.4 F L 10/15/21 04:35 Pulse Rate 86 10/15/21 04:35 Respiratory Rate 22 10/15/21 04:35 Blood Pressure 173/82 H 10/15/21 04:35 Pulse Oximetry 96 10/15/21 04:35 Course Orders Ordered: Discontinued Medications Hydrocodone Bitart/Acetaminophen (Hydrocodone/Acet 5/325 Prepack) 1 bottle MISC SEEINSTR ONE Stop: 10/15/21 04:49 Last Admin: 10/15/21 05:04 Dose: 1 bottle Documented by: KACEY Vital Signs Vital signs: Vital Signs - 8 hr 10/15/21 04:35 Temperature 97.4 F L Pulse Rate 86 Respiratory Rate 22 Blood Pressure 173/82 H Pulse Oximetry 96 MDM - Extremity Injury (Lower) Imaging Data Extremity x-ray #1: Radiologist's Impression: [address] [id number] XRay Report Signed Patient: Shyanne Zapata MR#: [id number] : 1955 Acct:[id number] Age/Sex: 66 / F Date of Service: 10/15/21 Loc: ED Accession Number: [id number] ?? Procedure: XR ankle LT min 3V Ordering Provider: Bon Zamora D.O. PROCEDURE:? XR ANKLE LT MIN 3V ? INDICATIONS:? severe lateral ankle pain ? TECHNIQUE:? Three views of the ankle were acquired.? ? COMPARISON:? [facility], CR, XR ANKLE RT MIN 3V, 04/23/2021, 10:35. ? FINDINGS:? ? Bones:? No fractures or dislocations.? Ankle mortise is normally aligned.? No suspicious bony lesions.? Small plantar calcaneal spur.? Minor posterior tibiotalar spurring. ? Soft tissues:? Mild periarticular soft tissue swelling.? Moderate thickening of the distal Achilles tendon with small focal calcification. ? ? IMPRESSION:? ? 1. No definite acute fractures. ? 2. Distal Achilles tendon thickening and trace calcification.? Consider chronic Achilles tendinopathy.? ? 3. Concordant with preliminary report. ? Dictated by: Emilie Souza M.D. on 10/15/2021 at 11:07 ? ? Approved by: Emilie Souza M.D. on 10/15/2021 at 11:09 ? Discharge Plan Departure Patient Disposition: Home Clinical Impression: Acute left ankle pain Instructions: DI for Ankle Pain Activity Restrictions/Additional Instructions: *You have been diagnosed with [left ankle pain, most likely soft tissue injury. Your history and physical exam are very reassuring and there is a very low likelihood of infection, gout or clot The x-ray shows no obvious fracture or dislocation. As we discussed, this is most likely sprain, inflammation and soft tissue involvement and should get better over the next 5-7 days *What to do: *Please continue to take your regular medications as directed. [ x] New medication prescriptions sent to your pharmacy: [[facility] [place]] [ ] New medication written as a paper prescription [ ] No new medications given *Please follow up with your primary care provider in 2-3 days, call for an appointment. Let them know you were seen in the Emergency Department and that we ask that you be seen in follow up. We will electronically transmit a record of today's note if your PCP is in our system *If you do not have a primary care provider please contact the [facility] Resource line at [phone]. They will ask some questions about your medical history and help get you set up with a doctor in the community. *Return to Emergency Department if you should have any new, worsening or concerning symptoms, such as [significant swelling, redness, red streaks, fever, or other bothersome symptoms You have been prescribed a short course of narcotic medications. These are potentially dangerous and addictive medications that should be used carefully. While on these medications you cannot drive or operate heavy machinery. Additionally, you cannot sign legal documents or perform any duties such as this. 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 Please understand that we cannot provide further refills of narcotics or controlled substances through the ED and your pain management will need to be through your Primary Care Provider Prescriptions: New hydrocodone-acetaminophen 5-325 mg tablet 1 tab PO Q4-6H PRN (Reason: pain) Qty: 10 0RF ketorolac 10 mg tablet 10 mg PO Q6H PRN (Reason: pain) Qty: 14 0RF No Action melatonin 3 MG tablet 5 mg PO HS Qty: 0 0RF ascorbic acid (vitamin C) 500 MG tablet 1,000 mg PO QDAY Qty: 0 0RF multivitamin [Multiple Vitamins] 1 EACH tablet 1 tab PO QDAY Qty: 0 0RF losartan 50 mg tablet 50 mg PO BID Qty: 180 3RF Eliquis 5 mg tablet 5 mg PO BID Qty: 180 3RF metoprolol succinate 50 mg tablet extended release 24 hr 50 mg PO DAILY Qty: 90 3RF pramipexole 0.5 mg tablet 0.5 - 2 mg PO BEDTIME PRN (Reason: restless leg(s)) Qty: 360 3RF Label Comments: Pt reports she takes 2 Q HS spironolactone 25 mg tablet 50 mg PO BID Qty: 360 3RF trazodone 100 mg tablet 100 mg PO BEDTIME Qty: 90 3RF furosemide 40 mg tablet 40 mg PO DAILY Qty: 90 3RF albuterol sulfate 90 mcg/actuation HFA aerosol inhaler 2 puff INHALATION Q4H PRN (Reason: wheezing) 0RF Referrals: Tim Zuniga MD [Primary Care Provider] -
[2021-10-15] MEDS: HYDROCODONE/ACET 5/325 PREPACK 1 BOTTLE MISC (05:04)
== END 2021-10-15 05:32 | disposition home or self-care (01) ==
PROVIDERS: Emergency Provider Emergency Medicine; Family Provider Family Medicine; PCP Internal Medicine
DX: M25.572 Pain in left ankle and joints of left foot (principal)
CPT/HCPCS: 73610; 99281; 99283

== ENCOUNTER 2022-02-20 04:29 | Emergency (ER) | payer MEDICARE, OTHER, SELFPAY ==
[2021-08-01 15:35] VITALS: BMI 63.3
[2022-02-20 04:45] VITALS: BP 189/86; PULSE 75; RESP 24; TEMP 36.6; O2SAT 96; BMI 61.3
--- NOTE | 2022-02-20 05:08 | ED_ITS ---
HPI - Extremity Problem General Chief complaint: Extremity Problem,Nontraumatic Stated complaint: right foot pain x1 day Time Seen by Provider: 02/20/22 04:58 Source: patient Mode of arrival: Ambulatory History of Present Illness HPI Narrative: Patient has history of gout. Complains of right great toe pain and swelling and redness for the past 1 day. History toe pain gout in the left foot in the past. Kidney function results reviewed August 01, 2021 with GFR 43 and creatinine 1.24. Patient allergic to codeine. But has had hydrocodone without problems in the past. Patient is on Eliquis. No known injury to the toe. Related Data Home Medications Medication Instructions Recorded Confirmed ascorbic acid (vitamin C) 500 mg 1,000 mg PO QDAY #0 tabs 04/08/16 08/01/21 tablet melatonin 3 mg tablet 5 mg PO HS #0 tabs 04/08/16 08/01/21 multivitamin (Multiple Vitamins) 1 tab PO QDAY #0 tabs 04/08/16 08/01/21 albuterol sulfate 90 mcg/actuation 2 puff inhalation Q4H PRN wheezing 04/24/21 08/01/21 aerosol inhaler Previous Rx's Medication Instructions Recorded apixaban 5 mg tablet (Eliquis) 5 mg PO BID #180 tabs 05/09/21 furosemide 40 mg tablet 40 mg PO DAILY #90 tabs 05/09/21 metoprolol succinate 50 mg 50 mg PO DAILY #90 tabs 05/09/21 tablet,extended release 24 hr pramipexole 0.5 mg tablet 0.5 - 2 mg PO BEDTIME PRN restless 05/09/21 leg(s) #360 tabs spironolactone 25 mg tablet 50 mg PO BID #360 tabs 05/09/21 trazodone 100 mg tablet 100 mg PO BEDTIME #90 tabs 05/09/21 losartan 50 mg tablet 50 mg PO BID #180 tabs 05/12/21 hydrocodone 5 mg-acetaminophen 325 1 tab PO Q4-6H PRN pain #10 tabs 10/15/21 mg tablet ketorolac 10 mg tablet 10 mg PO Q6H PRN pain #14 tabs 10/15/21 colchicine 0.6 mg capsule 0.6 mg PO BID #4 caps 02/20/22 Allergies Allergy/AdvReac Type Severity Reaction Status Date / Time codeine [CODEINE] Allergy Intermediate GASTRIC Verified 08/04/21 06:18 UPSET Sulfa (Sulfonamide Allergy Intermediate RASH/HIVES Verified 08/04/21 06:18 Antibiotics) [SULFA (SULFONAMIDE ANTIBIOTICS)] Review of Systems Review of Systems Narrative: GENERAL: Denies chills, fatigue, malaise, fever, sweats. HEENT: Denies sinus pain, ear pain, sore throat RESPIRATORY: Denies dyspnea, cough CARDIOVASCULAR: Denies chest pain, palpitations GASTROINTESTINAL: Denies nausea, vomiting, abdominal pain : Denies dysuria, frequency, hematuria MUSCULOSKELETAL: denies muscle pain positive for bony pain SKIN: Denies rash, skin lesions NEUROLOGIC: Denies weakness, numbness ROS Unobtainable: All systems reviewed & are unremarkable except as noted in HPI and below Patient History Medical History Allergies Anemia (1993) Ankle pain (~2019) Arthritis (1999) Asthma (~1970) BMI 60.0-69.9, adult Depression Diabetes type 2, controlled Essential hypertension (04/08/16) Foot pain (2010) Gout (1998) Hayfever Heart failure with preserved ejection fraction Heart murmur (1999) Insomnia (04/08/16) Knee pain (2009) Morbid obesity Obesity hypoventilation syndrome Other osteoarthritis involving multiple joints (05/26/17) Ovarian cyst (1975) Oxygen dependent (~2019) Paroxysmal atrial fibrillation RLS (restless legs syndrome) (2012) Sleep apnea (2011) Urinary incontinence (2013) Surgical History Anesthesia complication LAP-BAND surgery status (2012) Status post arthroscopy (2000) Status post cholecystectomy (1998) Status post hysterectomy (1995) Status post right foot surgery (2009) Family History Father Diabetes mellitus Heart disease Hypertension High cholesterol Renal failure Grandfather Heart disease Heart attack Grandmother Cancer Breast cancer Mother Diabetes mellitus Heart disease Heart failure Hypertension Grandfather Heart disease Dementia Grandmother Cancer Breast cancer Colon cancer Ovarian cancer Sister Age: 59 Fibromyalgia Bone cancer Brother Hyperlipidemia Sister Hypertension Social History household members: none Smoking Status: Never smoker alcohol intake: former Smoking Status: Never smoker Substance Use Type: does not use Exam Narrative Exam Narrative: GENERAL: in no distress, not toxic not dyspneic HEAD: Normocephalic. EYES: Pupils equal round No scleral icterus. EXTREMITIES: No gross deformities. Examination of right foot and ankle. Shoe and socks removed. There is erythema and edema of the 1st MTP joint that extends distally to the great toe. Skin is intact. Sensation intact to light touch. Toe is tender to touch. No red streaking proximally. No necrotic tissue. No crepitus. NEURO: AOx4. SKIN: Warm and dry PSYCH: Not anxious, is cooperative Initial Vital Signs Initial Vital Signs: Vital Signs Temperature 97.8 F 02/20/22 04:45 Pulse Rate 75 02/20/22 04:45 Respiratory Rate 24 02/20/22 04:45 Blood Pressure 189/86 H 02/20/22 04:45 Pulse Oximetry 96 02/20/22 04:45 Oxygen Delivery Method 02/20/22 04:45 Course Course Course Narrative: No new issues during course of stay Orders Ordered: Discontinued Medications Hydrocodone Bitart/Acetaminophen (Hydrocodone/Acet 5/325 Tablet) 2 tab PO NOW ONE Stop: 02/20/22 05:18 Last Admin: 02/20/22 05:23 Dose: 2 tab Documented By: ZONIA Colchicine (Colchicine 0.6 Mg Tablet) 0.6 mg PO NOW ONE Stop: 02/20/22 05:27 Last Admin: 02/20/22 05:51 Dose: 0.6 mg Documented By: ZONIA Indomethacin (Indomethacin 25 Mg Capsule) 75 mg PO NOW ONE Stop: 02/20/22 05:05 Indomethacin (Indomethacin 25 Mg Capsule) 25 mg PO NOW ONE Stop: 02/20/22 05:08 Reevaluation(s) Reevaluation #1: Reviewed with patient exam results and likely gouty flare-up. No blood work indicated this time. No x-rays, patient agrees. Time: 05:12 Vital Signs Vital signs: Vital Signs - 8 hr 02/20/22 04:45 02/20/22 06:00 Temperature 97.8 F Pulse Rate 75 65 Respiratory Rate 24 20 Blood Pressure 189/86 H 212/98 H Pulse Oximetry 96 98 Oxygen Delivery Method Room Air Room Air MDM - Extremity (Nontraumatic) Differential Diagnosis Differential diagnosis: Likely gout and cellulitis MDM Narrative Medical decision making narrative: Appropriate for discharge home. Clinically is gout. No blood work or imaging indicated. Patient has had gout flare-up in the toes before. Feels the same. 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 Patient is on Eliquis. Pain medication/Buckner will be prescribed as well as colchicine Renal function reviewed. Buckner was hand written. Discharge Plan Departure Patient Disposition: Home Clinical Impression: Gout Instructions: Gout Activity Restrictions/Additional Instructions: See family doctor next week for re-evaluation. Prescriptions have been sent to your pharmacy. May use home cane to help for walking. Return if worse or for any questions or concerns or increased pain or redness or swelling to the right toe. Prescriptions: New colchicine 0.6 mg capsule 0.6 mg PO BID Qty: 4 0RF No Action melatonin 3 MG tablet 5 mg PO HS Qty: 0 ascorbic acid (vitamin C) 500 MG tablet 1,000 mg PO QDAY Qty: 0 multivitamin [Multiple Vitamins] 1 EACH tablet 1 tab PO QDAY Qty: 0 losartan 50 mg tablet 50 mg PO BID Qty: 180 3RF Eliquis 5 mg tablet 5 mg PO BID Qty: 180 3RF metoprolol succinate 50 mg tablet extended release 24 hr 50 mg PO DAILY Qty: 90 3RF pramipexole 0.5 mg tablet 0.5 - 2 mg PO BEDTIME PRN (Reason: restless leg(s)) Qty: 360 3RF Label Comments: Pt reports she takes 2 Q HS spironolactone 25 mg tablet 50 mg PO BID Qty: 360 3RF trazodone 100 mg tablet 100 mg PO BEDTIME Qty: 90 3RF furosemide 40 mg tablet 40 mg PO DAILY Qty: 90 3RF albuterol sulfate 90 mcg/actuation HFA aerosol inhaler 2 puff INHALATION Q4H PRN (Reason: wheezing) hydrocodone-acetaminophen 5-325 mg tablet 1 tab PO Q4-6H PRN (Reason: pain) Qty: 10 0RF ketorolac 10 mg tablet 10 mg PO Q6H PRN (Reason: pain) Qty: 14 0RF Referrals: Tim Zuniga MD [Primary Care Provider] - Visit Report Forms: Patient Portal/API
[2022-02-20] MEDS: HYDROCODONE/ACET 5/325 TABLET 2 TAB PO (05:23)
[2022-02-20] MEDS: COLCHICINE 0.6 MG TABLET PO (05:51)
[2022-02-20 06:00] VITALS: BP 212/98; PULSE 65; RESP 20; O2SAT 98
== END 2022-02-20 05:58 | disposition home or self-care (01) ==
PROVIDERS: Emergency Provider Emergency Medicine; Family Provider Family Medicine; PCP Internal Medicine
DX: M10.9 Gout, unspecified (principal)
CPT/HCPCS: 99283

== ENCOUNTER 2022-07-20 07:17 | Emergency (ER) | payer MEDICARE, OTHER, SELFPAY ==
[2021-08-01 15:35] VITALS: BMI 63.3
[2022-07-20 07:22] VITALS: BP 165/103; PULSE 142; RESP 35; TEMP 36.1; O2SAT 89
--- NOTE | 2022-07-20 07:28 | DI.RAD.S_ITS ---
PROCEDURE: XR FOOT LT MIN 3V INDICATIONS: lateral (4th/5th MT) dorsum midfoot pain TECHNIQUE: 3 views of the foot were acquired. COMPARISON: None. FINDINGS: Bones: No fractures or dislocations. Osteoarthritic changes are noted throughout left foot. Well-defined plantar and dorsal calcaneal enthesophytes are seen. No suspicious bony lesions. Soft tissues: No tibiotalar joint effusion. Achilles tendon appears normal. IMPRESSION: Left foot osteoarthritis. No acute fracture or dislocation. Calcaneal enthesophytes. Dictated by: Ralph Avina M.D. on 07/20/2022 at 8:16 Approved by: Ralph Avina M.D. on 07/20/2022 at 8:18
--- NOTE | 2022-07-20 07:30 | ED_ITS ---
HPI - General Adult General Chief complaint: Extremity Problem,Nontraumatic Stated complaint: SOB, possible broken left foot Time Seen by Provider: 07/20/22 07:21 Source: patient Mode of arrival: Family Vehicle Limitations: no limitations History of Present Illness HPI narrative: 67-year-old female. Is oxygen dependent at home. Has not been able to use her oxygen concentrator because she is not had power at her home for the past couple days. Has also ran out of oxygen bottle was. She had 1 ?rescue bottle? that she still has but she can not wear it at night because she does not have a tube that is long enough so she is been out of her oxygen since last evening. She drove to the emergency department today because she woke up this morning and got up out of bed and felt a pop in her left foot. She drove herself here to the hospital. She is complaining of pain in her left foot. She did take some Tylenol without any improvement. She is also short of breath because she is been out of oxygen and because of the discomfort. Related Data Home Medications Medication Instructions Recorded Confirmed ascorbic acid (vitamin C) 500 mg 1,000 mg PO QDAY #0 tabs 04/08/16 08/01/21 tablet melatonin 3 mg tablet 5 mg PO HS #0 tabs 04/08/16 08/01/21 multivitamin (Multiple Vitamins 1 tab PO QDAY #0 tabs 04/08/16 08/01/21 tablet) albuterol sulfate 90 mcg/actuation 2 puff inhalation Q4H PRN wheezing 04/24/21 08/01/21 aerosol inhaler Previous Rx's Medication Instructions Recorded hydrocodone 5 mg-acetaminophen 325 1 tab PO Q4-6H PRN pain #10 tabs 10/15/21 mg tablet ketorolac 10 mg tablet 10 mg PO Q6H PRN pain #14 tabs 10/15/21 colchicine 0.6 mg capsule 0.6 mg PO BID #4 caps 02/20/22 metoprolol succinate 50 mg 50 mg PO DAILY #90 tabs 05/14/22 tablet,extended release 24 hr apixaban 5 mg tablet (Eliquis) 5 mg PO BID #180 tabs 06/22/22 furosemide 40 mg tablet 40 mg PO DAILY #90 tabs 06/22/22 pramipexole 0.5 mg tablet 0.5 - 2 mg PO BEDTIME PRN restless 06/22/22 leg(s) #360 tabs spironolactone 25 mg tablet 50 mg PO BID #360 tabs 06/22/22 trazodone 100 mg tablet 100 mg PO BEDTIME #90 tabs 06/22/22 losartan 100 mg tablet 100 mg PO DAILY #90 tabs 06/25/22 hydrocodone 5 mg-acetaminophen 325 1 tab PO Q4-6H PRN pain #10 tabs 07/20/22 mg tablet Allergies Allergy/AdvReac Type Severity Reaction Status Date / Time codeine [CODEINE] Allergy Intermediate GASTRIC Verified 07/20/22 07:33 UPSET Sulfa (Sulfonamide Allergy Intermediate RASH/HIVES Verified 07/20/22 07:33 Antibiotics) [SULFA (SULFONAMIDE ANTIBIOTICS)] Review of Systems Constitutional Constitutional: Reports system reviewed and no additional complaints, except as documented Respiratory Respiratory: Reports system reviewed and no additional complaints, except as documented Musculoskeletal Musculoskeletal: Reports system reviewed and no additional complaints, except as documented Neurologic Neurologic: Reports system reviewed and no additional complaints, except as documented Hematologic/Lymphatic On Anticoagulants: Yes Patient History Medical History Allergies Anemia (1993) Ankle pain (~2019) Arthritis (1999) Asthma (~1970) BMI 60.0-69.9, adult Depression Diabetes type 2, controlled Essential hypertension (04/08/16) Foot pain (2010) Gout (1998) Hayfever Heart failure with preserved ejection fraction Heart murmur (1999) Insomnia (04/08/16) Knee pain (2009) Morbid obesity Obesity hypoventilation syndrome Other osteoarthritis involving multiple joints (05/26/17) Ovarian cyst (1975) Oxygen dependent (~2019) Paroxysmal atrial fibrillation RLS (restless legs syndrome) (2012) Sleep apnea (2011) Urinary incontinence (2013) Surgical History Anesthesia complication LAP-BAND surgery status (2012) Status post arthroscopy (2000) Status post cholecystectomy (1998) Status post hysterectomy (1995) Status post right foot surgery (2009) Family History Father Diabetes mellitus Heart disease Hypertension High cholesterol Renal failure Grandfather Heart disease Heart attack Grandmother Cancer Breast cancer Mother Diabetes mellitus Heart disease Heart failure Hypertension Grandfather Heart disease Dementia Grandmother Cancer Breast cancer Colon cancer Ovarian cancer Sister Age: 59 Fibromyalgia Bone cancer Brother Hyperlipidemia Sister Hypertension Social History household members: none Smoking Status: Never smoker alcohol intake: former Smoking Status: Never smoker Substance Use Type: does not use Exam Initial Vital Signs Initial Vital Signs: Vital Signs Temperature 97.0 F L 07/20/22 07:22 Pulse Rate 142 H 07/20/22 07:22 Respiratory Rate 35 H 07/20/22 07:22 Blood Pressure 165/103 H 07/20/22 07:22 Pulse Oximetry 89 L 07/20/22 07:22 Oxygen Delivery Method 07/20/22 07:22 Oxygen Flow Rate 5 07/20/22 07:22 Const General: cooperative HENMT Head: normal to inspection Cardio Rate: tachycardic Skin General: no rashes or lesions noted Neuro Sensory Exam: no sensory deficits noted Extrem Other: Tenderness to palpation of the dorsum of the left foot over the 4th and 5th metatarsals. She is no knee tenderness. No ankle tenderness. Her medial and lateral malleoli are not tender. She can flex and extend the ankle. Procedures Orthopedic Splinting/Casting Injury #1: Side: left Lower Extremity Injury Location: foot Lower Extremity Immobilizer: Cas wrap Post splinting neuro exam: no change Post splinting vascular exam: no change Placed by: Nursing Course Orders Ordered: ED Orders 07/20/22 07:28 XR foot LT min 3V Stat EKG-12 Lead Stat Discontinued Medications Hydrocodone Bitart/Acetaminophen (Hydrocodone/Acet 5/325 Tablet) 1 tab PO NOW ONE Stop: 07/20/22 07:29 Last Admin: 07/20/22 07:48 Dose: 1 tab Vital Signs Vital signs: Vital Signs - 8 hr 07/20/22 07:22 07/20/22 07:54 07/20/22 08:00 Temperature 97.0 F L Pulse Rate 142 H 112 H 103 H Respiratory Rate 35 H 26 H 21 Blood Pressure 165/103 H Pulse Oximetry 89 L 94 96 Oxygen Delivery Method Nasal Cannula Oxygen Flow Rate 5 6 4 07/20/22 08:02 07/20/22 08:02 Temperature Pulse Rate 92 H Respiratory Rate 20 Blood Pressure 154/79 H Pulse Oximetry 97 Oxygen Delivery Method Oxygen Flow Rate 3 Medical Decision Making Imaging Data Extremity x-ray #1: Radiologist's Impression: [address] [address] XRay Report Signed Patient: Shyanne Zapata MR#: [id number] : 1955 Acct:[id number] Age/Sex: 67 / F Date of Service: 07/20/22 Loc: ED Accession Number: [id number] ?? Procedure: XR foot LT min 3V Ordering Provider: Sundar Cruz D.O. PROCEDURE:? XR FOOT LT MIN 3V ? INDICATIONS:? lateral (4th/5th MT) dorsum midfoot pain ? TECHNIQUE:? 3 views of the foot were acquired.? ? COMPARISON:? None. ? FINDINGS:? ? Bones:? No fractures or dislocations.? Osteoarthritic changes are noted throughout left foot.? Well-defined plantar and dorsal calcaneal enthesophytes are seen.? No suspicious bony lesions.? ? Soft tissues:? No tibiotalar joint effusion.? Achilles tendon appears normal.? ? ? IMPRESSION:? Left foot osteoarthritis.? No acute fracture or dislocation.? Calcaneal enthesophytes. ? ? Dictated by: Ralph Avina M.D. on 07/20/2022 at 8:16 ? ? Approved by: Ralph Avina M.D. on 07/20/2022 at 8:18?? ECG Data Attestation: I personally reviewed and interpreted this ECG as follows: Interpretation: AFib Ventricular rate of 111 Normal QRS Normal QTC Normal axis No ST T wave changes MDM Narrative Medical decision making narrative: X-ray does not show any signs of a fracture. She does have arthritis. Symptoms are not consistent with gout. I did discuss this with her. An elastic bandage was placed for her comfort. She can ambulate as tolerated. She is in AFib but is on anticoagulation and has paroxysmal AFib. I suspect that this is secondary to her discomfort. She was also hypoxic upon arrival. She is on home oxygen at baseline. She is not had power in her house and so the oxygen concentrator is not been working and she is been using the portable bottles however she ran out and has not been on oxygen for several hours (greater than 12). She is back to baseline respiratory status. She states that she can drive home (20 minutes) without any oxygen and now that she has power she can use her concentrate her. Will discharge home with pain medication. She was given return precautions. She expressed understanding and agreement. Discharge Plan Departure Patient Disposition: Home Clinical Impression: Foot sprain, A-fib Instructions: How To Perform RICE (Rest, Ice, Compress, Elevate) Activity Restrictions/Additional Instructions: The x-ray today does show arthritis but no signs of any fractures. You can walk on your left foot as tolerated. I do recommend that you try to keep it elevated and place ice over it. You can use the Cas bandage as needed for comfort. You are in AFib today which is not surprising given the discomfort that you were in and also that you have not been on oxygen for several hours. Use your oxygen at home as directed. Return to the emergency department for any new or worsening symptoms. Prescriptions: New hydrocodone-acetaminophen 5-325 mg tablet 1 tab PO Q4-6H PRN (Reason: pain) Qty: 10 0RF No Action melatonin 3 MG tablet 5 mg PO HS Qty: 0 ascorbic acid (vitamin C) 500 MG tablet 1,000 mg PO QDAY Qty: 0 multivitamin [Multiple Vitamins] 1 EACH tablet 1 tab PO QDAY Qty: 0 metoprolol succinate 50 mg tablet extended release 24 hr 50 mg PO DAILY Qty: 90 0RF Rx Instructions: PT WILL NEED TO BE SEEN BEFORE NEXT FILL 05/14/22 Eliquis 5 mg tablet 5 mg PO BID Qty: 180 0RF Rx Instructions: APPT DUE W/PCP PRIOR TO END OF RX/FUTURE FILLS. PLEASE CALL TO SCHEDULE APPT. THANK YOU 06/22/22. spironolactone 25 mg tablet 50 mg PO BID Qty: 360 0RF Rx Instructions: APPT DUE W/PCP PRIOR TO END OF RX/FUTURE FILLS. PLEASE CALL TO SCHEDULE APPT. THANK YOU 06/22/22. trazodone 100 mg tablet 100 mg PO BEDTIME Qty: 90 0RF Rx Instructions: APPT DUE W/PCP PRIOR TO END OF RX/FUTURE FILLS. PLEASE CALL TO SCHEDULE APPT. THANK YOU 06/22/22. pramipexole 0.5 mg tablet 0.5 - 2 mg PO BEDTIME PRN (Reason: restless leg(s)) Qty: 360 0RF Label Comments: Pt reports she takes 2 Q HS Rx Instructions: APPT DUE W/PCP PRIOR TO END OF RX/FUTURE FILLS. PLEASE CALL TO SCHEDULE APPT. THANK YOU 06/22/22. furosemide 40 mg tablet 40 mg PO DAILY Qty: 90 0RF Rx Instructions: APPT DUE W/PCP PRIOR TO END OF RX/FUTURE FILLS. PLEASE CALL TO SCHEDULE APPT. THANK YOU 06/22/22. losartan 100 mg tablet 100 mg PO DAILY Qty: 90 3RF Rx Instructions: APPT DUE W/PCP PRIOR TO END OF RX/FUTURE FILLS. PLEASE CALL TO SCHEDULE APPT. THANK YOU 06/22/22. albuterol sulfate 90 mcg/actuation HFA aerosol inhaler 2 puff INHALATION Q4H PRN (Reason: wheezing) hydrocodone-acetaminophen 5-325 mg tablet 1 tab PO Q4-6H PRN (Reason: pain) Qty: 10 0RF ketorolac 10 mg tablet 10 mg PO Q6H PRN (Reason: pain) Qty: 14 0RF colchicine 0.6 mg capsule 0.6 mg PO BID Qty: 4 0RF Referrals: Tim Zuniga MD [Primary Care Provider] -
[2022-07-20] MEDS: HYDROCODONE/ACET 5/325 TABLET 1 TAB PO (07:48)
[2022-07-20 07:54] VITALS: PULSE 112; RESP 26; O2SAT 94
[2022-07-20 08:00] VITALS: PULSE 103; RESP 21; O2SAT 96
[2022-07-20 08:02] VITALS: BP 154/79; PULSE 92; RESP 20; O2SAT 97
[2022-07-20 08:30] VITALS: PULSE 103; RESP 19; O2SAT 95
[2022-07-20 09:00] VITALS: BP 144/82; PULSE 80; RESP 18; O2SAT 93
== END 2022-07-20 09:37 | disposition home or self-care (01) ==
PROVIDERS: Emergency Provider Emergency Medicine; Family Provider Family Medicine; PCP Internal Medicine
DX: S93.602A Unspecified sprain of left foot, initial encounter (principal); X50.1XXA Overexertion from prolonged static or awkward postures, initial encounter; I48.91 Unspecified atrial fibrillation; Z79.899 Other long term (current) drug therapy; Z99.81 Dependence on supplemental oxygen
CPT/HCPCS: 73630; 93005; 93010; 99284; 99285

== ENCOUNTER → 2022-08-04 16:40 | Outpatient (CLI) | payer MEDICARE, OTHER, SELFPAY ==
[2021-08-01 15:35] VITALS: BMI 63.3
[2022-08-04 17:07] LABS: Add Manual Diff / Slide Review NO; Basophils Absolute Auto 0 /uL (0-100); Basophils Percent Auto 0.6 % (0-2); Eosinophils Absolute Auto 200 /uL (0-450); Eosinophils Percent Auto 2.5 % (2-4); Hematocrit 36.8 % (36-46); Hemoglobin 11.8 g/dL (12.0-16.0); Lymphocytes Absolute Auto 900 /uL (1100-4500); Lymphocytes Percent Auto 11.4 % (25-40); Mean Corpuscular HGB Conc 32.1 % (30-36); Mean Corpuscular Hemoglobin 27.3 PG (26-34); Monocytes Absolute Auto 500 /uL (0-900); Monocytes Percent Auto 5.7 % (3-14); Neutrophils Absolute Auto 6600 /uL (1500-7000); Neutrophils Percent Auto 79.8 % (50-75); Platelet Count 208 X10^3/uL (150-400); Red Blood Cell Count 4.33 X10^6/uL (4.0-5.2); Red Cell Distribution Width 17.1 % (11.6-14.8); White Blood Cell Count 8.2 X10^3/uL (4.5-11.0)
[2022-08-04 17:27] LABS: Alanine Aminotransferase 40 IU/L (<35); Albumin Globulin Ratio 1.2 (1.0-2.8); Alkaline Phosphatase 88 U/L (38-126); Aspartate Aminotransferase 27 IU/L (14-36); BUN Creatinine Ratio 22.5 (6-22); Bilirubin Total 0.5 mg/dL (0.2-1.3); Blood Urea Nitrogen 27 mg/dL (7-17); Calcium 9.1 mg/dL (8.4-10.2); Carbon Dioxide 35 mmol/L (22-32); Chloride 99 mmol/L (98-107); Estimated Glomerular Filt Rate 50 mL/min (>60); Globulin 3.4 g/dL (1.7-4.1); Glucose 122 mg/dL (80-110); HEMOLYSIS < 15 (0-50); Potassium 4.7 mmol/L (3.4-5.1); Sodium 143 mmol/L (137-145); Total Protein 7.4 g/dL (6.3-8.2); Uric Acid 7.3 mg/dL (2.5-6.2)
[2022-08-04 17:29] LABS: Hemoglobin A1C% w Est Avg Glu 6.4 % (4.0-6.0)
[2022-08-04 17:58] LABS: TSH w/ Reflex to FT4 1.88 uIU/mL (0.47-4.68)
== END ==
PROVIDERS: Family Provider Family Medicine; PCP Internal Medicine; Referring Provider Internal Medicine; Visit Provider Internal Medicine
DX: E11.9 Type 2 diabetes mellitus without complications (principal); I10 Essential (primary) hypertension; I48.0 Paroxysmal atrial fibrillation; M10.9 Gout, unspecified; E03.9 Hypothyroidism, unspecified
CPT/HCPCS: 36415; 80053; 83036; 84443; 84550; 85025

== ENCOUNTER → 2022-09-28 14:03 | Outpatient (CLI) | payer MEDICARE, OTHER, SELFPAY ==
[2021-08-01 15:35] VITALS: BMI 63.3
--- NOTE | 2022-10-20 11:34 | PM.CARDMON.1 ---
Curriculum Advisory Teacher Report Referral & Results Date Patient Seen: 09/28/22 Requesting provider: Tim Zuniga Indication: Paroxysmal atrial fibrillation Duration of monitoring (days): 7 Diary information: There were 10 patient triggered events and 8 patient diary entries All of these patient events were variably associated with the underlying atrial fibrillation and PVCs Data: Patient was continuously in atrial fibrillation for the duration of the monitoring period was just over 7 days with heart rate ranging between 44 and 176 beats per minute Less than 1% of identified beats were ventricular ectopic in origin which would classify them as rare There were 2 runs of narrow complex probable ventricular tachycardia with a beats being the longest run. Impression: Continuous atrial fibrillation with above range for rate Rare PVCs Clinical correlation suggested
== END ==
LOC: CAR 14:09
PROVIDERS: Family Provider Family Medicine; PCP Internal Medicine; Referring Provider Internal Medicine; Visit Provider Internal Medicine
DX: I48.0 Paroxysmal atrial fibrillation (principal)
CPT/HCPCS: 93242; 93248

== ENCOUNTER 2025-08-17 12:11 | Emergency (ER) | payer MEDICARE, OTHER, SELFPAY ==
[2021-08-01 15:35] VITALS: BMI 63.3
[2025-08-17 12:24] VITALS: BP 140/79; PULSE 63; RESP 16; TEMP 36.2; O2SAT 98; BMI 46.5
--- NOTE | 2025-08-17 12:34 | ED.LOWEXIN ---
HPI - Extremity Injury (Lower) General Chief Complaint: Extremity Injury, Lower Stated Complaint: left foot pain , 7 days Time Seen by Provider: 08/17/25 12:28 History of Present Illness HPI Narrative: Ms. Zapata is a pleasant 70-year-old female with a past medical history of gout on allopurinol, CKD 3A, AFib on Eliquis, HTN, CHF who presents to the emergency department for left foot pain x1 week. Patient states that she deals with chronic gout in his on allopurinol, 1 week ago she started having pain redness of her left great toe so she started increasing her allopurinol. However over the last few days she has now had pain of the lateral aspect of her left foot which is not normal for her gout. She is having pain with ambulation today which brought her to the ER. She denies any calf swelling or pain, fevers, flu-like symptoms, trauma or other concerns. She has been taking her Eliquis as directed. Related Data Home Medications ?Medication ?Instructions ?Recorded ?Confirmed ascorbic acid (vitamin C) 500 mg 1,000 mg PO QDAY #0 tabs 04/08/16 07/20/25 tablet melatonin 3 mg tablet 5 mg PO HS #0 tabs 04/08/16 07/20/25 multivitamin (Multiple Vitamins 1 tab PO QDAY #0 tabs 04/08/16 07/20/25 tablet) terbinafine HCl 250 mg tablet 250 mg PO DAILY 10/16/24 07/20/25 Previous Rx's ?Medication ?Instructions ?Recorded albuterol sulfate 90 mcg/actuation 2 puff inhalation Q4H PRN wheezing 08/04/22 aerosol inhaler #8.5 grams apixaban 5 mg tablet (Eliquis) 5 mg PO BID #180 tabs 01/11/24 Disabled Parking #1 ea 05/09/24 allopurinol 100 mg tablet 100 mg PO DAILY #90 tabs 09/19/24 losartan 100 mg tablet 100 mg PO DAILY #90 tabs 09/19/24 pramipexole 0.5 mg tablet 0.5 - 2 mg (1 - 4 x 0.5 mg) PO 09/19/24 BEDTIME PRN restless leg(s) #360 tabs spironolactone 25 mg tablet 50 mg (2 x 25 mg) PO BID #360 tabs 09/19/24 metoprolol succinate 50 mg 50 mg PO DAILY #90 tabs 12/27/24 tablet,extended release 24 hr carbidopa ER 25 mg-levodopa 100 mg 1 tab PO BEDTIME #90 tabs 02/27/25 tablet,extended release hydrocodone 5 mg-acetaminophen 325 1 tab PO Q4-6H PRN pain #12 tabs 08/17/25 mg tablet prednisone 20 mg tablet See Rx Instructions .Route 08/17/25 .COMPLEX #11 tabs Allergies Allergy/AdvReac Type Severity Reaction Status Date / Time Sulfa (Sulfonamide Allergy Intermediate RASH/HIVES Verified 07/20/25 16:00 Antibiotics) (SULFA (SULFONAMIDE ANTIBIOTICS)) codeine (CODEINE) AdvReac Intermediate GASTRIC Verified 08/17/25 12:51 UPSET Review of Systems Review of Systems ROS Unobtainable: All systems reviewed & are unremarkable except as noted in HPI and below Patient History Medical History Mixed incontinence Chronic gout Persistent atrial fibrillation Chronic renal failure, stage 3a Paroxysmal atrial fibrillation Heart failure with preserved ejection fraction Allergies Ankle pain (~2019) Oxygen dependent (~2019) Diabetes type 2, controlled Obesity hypoventilation syndrome Morbid obesity BMI 60.0-69.9, adult Knee pain (2009) Ovarian cyst (1975) Urinary incontinence (2013) Anemia (1993) Foot pain (2010) Gout (1998) RLS (restless legs syndrome) (2012) Sleep apnea (2011) Hayfever Depression Asthma (~1970) Arthritis (1999) Heart murmur (1999) Other osteoarthritis involving multiple joints (05/26/17) Insomnia (04/08/16) Essential hypertension (04/08/16) Surgical History Anesthesia complication LAP-BAND surgery status (2012) Status post right foot surgery (2009) Status post arthroscopy (2000) Status post cholecystectomy (1998) Status post hysterectomy (1995) Family History Father Diabetes mellitus Heart disease Hypertension High cholesterol Renal failure Grandfather Heart disease Heart attack Grandmother Cancer Breast cancer Mother Diabetes mellitus Heart disease Heart failure Hypertension Grandfather Heart disease Dementia Grandmother Cancer Breast cancer Colon cancer Ovarian cancer Sister Age: 63 Fibromyalgia Bone cancer Brother Hyperlipidemia Sister Hypertension Social History household members: none alcohol intake: former Exam Narrative Exam Narrative: GENERAL: 70 year old patient appears stated age. Obese patient, in no acute distress. HEAD: Atraumatic. Normocephalic. EYES: No scleral icterus. No injection or drainage. NECK: Trachea midline. Cervical ROM intact. CARDIOVASCULAR: Regular rate RESPIRATORY: ?Nonlabored respirations. ?Speaking in clear, full sentences. EXTREMITIES: Patient has edema and erythema of left foot primarily over the 1st MTP joint region. She has significant tenderness over the 1st MTP but she also has tenderness on the lateral aspect of the foot overlying the proximal base of the 5th metatarsal. Brisk cap refill in the toes and strong palpable DP pulse. No calf swelling tenderness or color change. NEURO: AOx3. ?Clear speech. ?Moves all 4 extremities appropriately. SKIN: Erythema of left 1st MTP joint region Initial Vital Signs Initial Vital Signs: Vital Signs Temperature 97.2 F L 08/17/25 12:24 Pulse Rate 63 08/17/25 12:24 Respiratory Rate 16 08/17/25 12:24 Blood Pressure 140/79 08/17/25 12:24 Pulse Oximetry 98 08/17/25 12:24 Oxygen Delivery Method Room Air 08/17/25 12:24 Course Orders Ordered: ED Orders 08/17/25 12:34 XR foot LT min 3V Stat Discontinued Medications Hydrocodone Bitart/Acetaminophen (Hydrocodone/Acet 5/325 Tablet) 1 tab PO NOW ONE Stop: 08/17/25 12:35 Last Admin: 08/17/25 12:43 Dose: 1 tab Documented By: PROSPER Hydrocodone Bitart/Acetaminophen (Hydrocodone/Acet 5/325 Tablet) 1 tab PO NOW ONE Stop: 08/17/25 14:04 Last Admin: 08/17/25 14:10 Dose: 1 tab Documented By: PROSPER Prednisone (Prednisone 20 Mg Tablet) 40 mg PO NOW ONE Stop: 08/17/25 12:35 Last Admin: 08/17/25 12:43 Dose: 40 mg Documented By: PROSPER Vital Signs Vital signs: Vital Signs - 8 hr 08/17/25 12:24 08/17/25 14:05 Temperature 97.2 F L Pulse Rate 63 Pulse Rate [Left Dorsalis Pedis] 70 Respiratory Rate 16 Blood Pressure 140/79 Pulse Oximetry 98 Oxygen Delivery Method Room Air MDM - Extremity Injury (Lower) Medical Records Attestation: I reviewed the patient's medical records. Imaging Data Left Foot XR: Radiologist's Impression: PROCEDURE: XR FOOT LT MIN 3V INDICATIONS: gout 1st mtp; lateral foot pain nontraumatic TECHNIQUE: 3 views of the foot were acquired. COMPARISON: [facility], , XR FOOT LT MIN 3V, 07/20/2022, 7:44. FINDINGS: Bones: No fractures or dislocations. Mild to moderate osteoarthritic changes are redemonstrated. Plantar and posterior calcaneal enthesophytes. Mild hallux valgus angulation of the 1st MTP with medial bunion formation. No suspicious bony lesions. Soft tissues: No tibiotalar joint effusion. Achilles tendon appears normal. Soft tissue swelling throughout the foot. IMPRESSION: Redemonstration of degenerative changes as described above. No acute osseous abnormalities. Dictated by: Rohan Eastman M.D. on 08/17/2025 at 13:00 Approved by: Rohan Eastman M.D. on 08/17/2025 at 13:01 [facility] Narrative Medical decision making narrative: 70-year-old female with a past medical history of gout on allopurinol, CKD 3A, AFib on Eliquis, HTN, CHF who presents to the emergency department for left foot pain x1 week. She has significant history of gout and is on allopurinol, she increased her allopurinol this past week. Differential diagnosis includes but isn't limited to gout, cellulitis, fracture, etc. On exam the patient is in NAD, nontoxic appearing, all vital signs within normal limits. She is experiencing a gout flare of her left 1st MTP which is normal for her however she is also having pain on the lateral foot which is not normal for her. The foot is neurovascularly intact. There is no calf swelling or tenderness. We will treat with prednisone as patient can not take NSAIDs, hydrocodone, and obtain left foot x-ray to rule out fracture or other bony abnormality. Left x-ray reveals redemonstration of degenerative changes, no acute osseous abnormalities. Patient's pain improved slightly but not resolved. At this time I encouraged rice therapy, use of prednisone for gout flare and hydrocodone for severe breakthrough pain. Discussed ER return precautions with the patient including but not limited to increased redness, fevers, flu-like symptoms or any other concerns. Patient verbalized understanding of all information is agreeable with the plan. She is stable for discharge home, she does have a family member here to drive her. Discharge Plan Departure Patient Disposition: Home Clinical Impression: Acute pain of left foot, Hx of gout Instructions: DI for Gout, DI for Foot Pain Activity Restrictions/Additional Instructions: Dear Jodi, Thank you for coming to the emergency department. Today you were evaluated for left foot pain. We obtained an x-ray of your left foot which does show arthritis/degenerative changes but it does not show any acute fractures or dislocations. You were treated with a steroid and a pain medication. I do suspect that your pain is likely because of your gout and I would like you to use the prescribed steroid and pain medicine as needed. You may also take Tylenol with these medications. It is very important to decrease sugar and carbohydrates in the diet while taking a steroid as it can increase your blood glucose. Please use RICE therapy for your pain in addition to pain medication. Rest the painful area. Ice the area of pain/swelling for at least 15 minutes, 4x a day. Compress the area of swelling using a brace, wrap, or splint if applied. Elevate the painful or swollen extremity by supporting it above the level of the heart with pillows when sitting or laying. Please return to the emergency department immediately if you develop fevers, flu-like symptoms, redness or swelling extending up the leg or any other concerns. You have been prescribed a short course of narcotic medications. These are potentially dangerous and addictive medications that should be used carefully. While on these medications you cannot drive or operate heavy machinery. Additionally, you cannot sign legal documents or perform any duties such as this. Many people get constipated on narcotic medications so it would be advisable to discuss stool softeners with the pharmacist when you [employer] your prescription. Please understand that we cannot provide further refills of narcotics or controlled substances through the ED and your pain management will need to be through your Primary Care Provider Please follow up with your primary care doctor within the next 2-3 days for ER follow-up. (If you do not have a PCP you can call [phone]. ?to schedule an appointment with an [facility] Primary Care Provider) IF YOU DEVELOP ANY NEW OR WORSENING SYMPTOMS, RETURN TO THE ER! Please read the attached instructions, they highlight more specific treatments and interventions for you at home. Thank you for letting me participate in your care, Saba Rodriguez PA-C Prescriptions: New prednisone 20 mg tablet See Rx Instructions .ROUTE .COMPLEX Qty: 11 0RF Rx Instructions: Take 40 mg (2 tabs) once daily for days 1-4, followed by 20 mg (1 tab) days 5-7. hydrocodone-acetaminophen 5-325 mg tablet 1 tab PO Q4-6H PRN (Reason: pain) Qty: 12 0RF No Action melatonin 3 MG tablet 5 mg PO HS Qty: 0 ascorbic acid (vitamin C) 500 MG tablet 1,000 mg PO QDAY Qty: 0 multivitamin [Multiple Vitamins] 1 EACH tablet 1 tab PO QDAY Qty: 0 Eliquis 5 mg tablet 5 mg PO BID Qty: 180 1RF allopurinol 100 mg tablet 100 mg PO DAILY Qty: 90 3RF losartan 100 mg tablet 100 mg PO DAILY Qty: 90 3RF pramipexole 0.5 mg tablet 0.5 - 2 mg PO BEDTIME PRN (Reason: restless leg(s)) Qty: 360 3RF Patient Comments: Pt reports she takes 2 Q HS spironolactone 25 mg tablet 50 mg PO BID Qty: 360 3RF terbinafine HCl 250 mg tablet 250 mg PO DAILY metoprolol succinate 50 mg tablet extended release 24 hr 50 mg PO DAILY Qty: 90 1RF carbidopa-levodopa 25-100 mg tablet extended release 1 tab PO BEDTIME Qty: 90 3RF albuterol sulfate 90 mcg/actuation HFA aerosol inhaler 2 puff INHALATION Q4H PRN (Reason: wheezing) Qty: 8.5 3RF (DME) Disabled Parking See Rx Instructions .ROUTE .MEDSUPPLY Qty: 1 0RF Rx Instructions: Patient qualifies for disabled parking as per the attached form. Referrals: Tim Zuniga MD [Primary Care Provider, Internal Medicine] Stand Alone Forms: Patient Portal/API
[2025-08-17 14:05] VITALS: PULSE 70
== END 2025-08-17 14:20 | disposition home or self-care (01) ==
PROVIDERS: Emergency Provider Physician Assistant; PCP Internal Medicine
DX: M79.672 Pain in left foot (principal); Z87.39 Personal history of other diseases of the musculoskeletal system and connective tissue
CPT/HCPCS: 73630; 99283